=== PATIENT | female | born 1930 | race African-American/Black ===

== ENCOUNTER 2018-07-07 10:50 | Emergency (ER) | payer MEDICARE ==
--- NOTE | 2018-07-07 11:06 | UC ---
Palpitation/Dysrhythmia HP - HPI Summary HPI Summary: This is scribe, Tony Hui, documenting for attending Dr. Godfrey Cabral MD. An 88 y/o F presents to ED with c/o acute on chronic skipping heart beats. Associated sx: dizziness and lightheaded for past week, pale. Denies pedal edema , SOB, CP, fever, abd pain, nausea, BATEMAN. Pt sees Dr. Johnson, oncology, last checked her kidney function on 06/24/18. Pt ambulates with a walker, and is able to do so but less far recently. PMHx includes: L breast CA with lumpectomy, HTN , DM, GERD, Lasix. She is scheduled to see her PCP in 3 days. I, Dr. Cabral, personally performed the services described in this documentation as scribed in my presence and it is both accurate and complete. - History of Current Complaint Stated Complaint: LIGHT HEADED HEART SKIPPING BEAT Time Seen by Provider: 07/07/18 10:58 Hx Obtained From: Patient, Family/Deputy [employer] K[employer] Handler Onset/Duration: Lasting Weeks, Still Present Character: Skipped Beats Associated Signs & Symptoms: Positive: Lightheadedness, Dizzy. Negative: Chest Pain, Shortness of Breath, Nausea - Allergy/Home Medications Allergies/Adverse Reactions: Allergies Allergy/AdvReac Type Severity Reaction Status Date / Time exenatide [From Byetta] Allergy Itching Verified 07/07/18 11:46 nadolol Allergy Itching Verified 07/07/18 11:46 naproxen Allergy Swelling Verified 07/07/18 11:46 Penicillins Allergy Hives Verified 07/07/18 11:46 Flu Vaccine Allergy Itching Uncoded 07/07/18 11:46 Statins Allergy Muscle Ache Uncoded 07/07/18 11:46 PMH/Surg Hx/FS Hx/Imm Hx Previously Healthy: No - Lasix Endocrine History: Diabetes Cardiovascular History: Hypertension GI/ History: Gastroesophageal Reflux Cancer History: Breast Cancer - L - Surgical History Surgical History: Yes Surgery Procedure, Year, and Place: TONSILECTOMY A CHILD. LUMPECTOMY LEFT BREAST. Cataract removal - Family History Family History: mother [place]; father accident - Social History Occupation: Retired Lives: Alone Alcohol Use: None Substance Use Type: None Smoking Status (MU): Never Smoked Tobacco Have You Smoked in the Last Year: No - Immunization History Most Recent Influenza Vaccination: "couple years ago" Most Recent Tetanus Shot: unknown Most Recent Pneumonia Vaccination: never Review of Systems Constitutional: Other - neg: fever Skin: Other - pale1 Respiratory: Other - neg: SOB Cardiovascular: Other - pos: skipped beat; neg: CP Gastrointestinal: Other - neg: abd pain, nausea Musculoskeletal: Other: - neg: pedal edema Neurological: Other - pos: lightheaded, dizziness; neg: BATEMAN All Other Systems Reviewed And Are Negative: Yes Physical Exam - Summary Physical Exam Summary: Appearance: Well appearing, no pain distress Skin: warm, dry, reflects adequate perfusion Head/face: normal Eyes: EOMI, VANDANA ENT: normal, mucous membranes are moist Neck: supple, non-tender, no thyroidmegaly Respiratory: CTA, breath sounds present Cardiovascular: occasionally irregular rhythm, pulses symmetrical and strong, no murmur, trace LE edema Abdomen: non-tender, soft Bowel Sounds: present Musculoskeletal: normal, strength/ROM intact, trace LE edema Neuro: normal, sensory motor intact, A&Ox3 Triage Information Reviewed: Yes Vital Signs Reviewed: Yes Diagnostics - EKG EKG Comments: EKG taken at 1053. 70 BPM. NS. Base line artifact. PVCs. Non-specific ST. Nml axis. Palpitations Course/Dx - Course Course Of Treatment: BP noted and advised to follow up with PCP. Patient having ongoing palpitations for many many years. New is dizziness, lightheadedness with a history of chronic renal insufficiency and anemia. She will need blood work and further evaluation. It was suggested she be transported to the ER. She and the family agree. She was transported by ambulance to the care of Dr. Emmanuel in the ER who I spoke with. - Differential Dx/Diagnosis Differential Diagnosis/HQI/PQRI: Other - Malignant arrhythmia, A. fib, PVCs, anemia, electrolyte abnormality, worsened renal function Provider Diagnoses: 1. PVCs. 2. Lightheadedness. 3. Chronic Kidney Disease. 4. HTN - Physician Notifications Discussed Patient Care With: Oly Clinton - will see the patient in the ER Discharge - Sign-Out/Discharge Documenting (check all that apply): Patient Departure - TRANS to [facility] - Discharge Plan Condition: Stable Disposition: TRANS HIGHER LVL OF CARE FAC Referrals: Dallin Rodriguez MD [Primary Care Provider] - 1 Week Additional Instructions: Your blood pressure was elevated during todays visit; please follow up with your primary care provider within a week for further evaluation. - Billing Disposition and Condition Condition: STABLE Disposition: Trans Higher Lvl of Care Fac
[2018-07-07 11:09] VITALS: BP 173/61
== END 2018-07-07 11:39 | disposition short-term general hospital (02) ==
LOC: UCEAST 10:50
DX: I49.3 Ventricular premature depolarization (principal); R42 Dizziness and giddiness; I12.9 Hypertensive chronic kidney disease with stage 1 through stage 4 chronic kidney disease, or unspecified chronic kidney disease; E11.22 Type 2 diabetes mellitus with diabetic chronic kidney disease; N18.9 Chronic kidney disease, unspecified; Z88.6 Allergy status to analgesic agent; Z88.0 Allergy status to penicillin; Z88.7 Allergy status to serum and vaccine; Z88.8 Allergy status to other drugs, medicaments and biological substances
CPT/HCPCS: 93005; 99213; G0463

== ENCOUNTER 2018-07-07 12:03 | Emergency (ER) | payer MEDICARE ==
--- NOTE | 2018-07-07 12:55 | ED ---
HPI Cardiac - HPI Summary HPI Summary: This is scribe Scottie Gómez documenting for attending Gregory Rust MD, MD. This patient is an 88 year old F BIBA to [facility] with a chief complaint of abnormal cardiac rhythm worsening this past week. She was told that her heart has been skipping beats. Patient reports lightheadedness. Patient denies CP and SOB. She did not take her medications for HTN this morning. Her PCP is Dallin Rodriguez MD. She has a PMHx of stage IV renal disease and HTN. I, Dr. Rust, personally performed the services described in this documentation as scribed in my presence, and it is both accurate and complete. - History of Current Complaint Chief Complaint: EDDizziness Stated Complaint: DIZZINESS Time Seen by Provider: 07/07/18 12:35 Hx Obtained From: Patient Onset/Duration: Started Days Ago - Worsening this past week, Still Present Timing: Constant Aggravating Factor(s): Nothing Alleviating Factor(s): Nothing Associated Signs and Symptoms: Positive: Other: - Lightheadedness.. Negative: Chest Pain, Shortness of Breath - Allergy/Home Medications Allergies/Adverse Reactions: Allergies Allergy/AdvReac Type Severity Reaction Status Date / Time exenatide [From Byetta] Allergy Itching Verified 07/07/18 11:46 nadolol Allergy Itching Verified 07/07/18 11:46 naproxen Allergy Swelling Verified 07/07/18 11:46 Penicillins Allergy Hives Verified 07/07/18 11:46 Flu Vaccine Allergy Itching Uncoded 07/07/18 11:46 Statins Allergy Muscle Ache Uncoded 07/07/18 11:46 Home Medications: Home Medications Calcitriol CAP* [Rocaltrol CAP*] 0.25 mcg PO EVERY OTHER DAY 07/07/18 [History Confirmed 07/07/18] Chlorthalidone TAB* [Hygroton TAB*] 25 mg PO DAILY 07/07/18 [History Confirmed 07/07/18] Cholecalciferol TAB* [Vitamin D TAB*] 1,000 unit PO DAILY 07/07/18 [History Confirmed 07/07/18] DULoxetine DR CAP* [Cymbalta CAP*] 30 mg PO DAILY 07/07/18 [History Confirmed ] Doxazosin TAB* [Cardura TAB*] 2 mg PO BEDTIME 07/07/18 [History Confirmed ] Furosemide TAB* [Lasix TAB*] 20 mg PO DAILY 07/07/18 [History Confirmed 07/07/18 ] Glimepiride (NF) 4 mg PO DAILY 07/07/18 [History Confirmed 07/07/18] Metoprolol Succinate XL TAB* [Toprol XL TAB*] 100 mg PO DAILY 07/07/18 [History Confirmed 07/07/18] Ranitidine TAB (NF) [Zantac TAB (NF)] 150 mg PO BID 07/07/18 [History Confirmed 07/07/18] amLODIPine TAB* [Norvasc 5 mg TAB*] 10 mg PO DAILY 07/07/18 [History Confirmed 07/07/18] PMH/Surg Hx/FS Hx/Imm Hx Endocrine/Hematology History: Reports: Hx Diabetes, Other Endocrine/ Hematological Disorders - hyperparathyroidism Cardiovascular History: Reports: Hx Hypertension Denies: Hx Pacemaker/ICD History: Reports: Hx Renal Disease - Stage IV renal disease Musculoskeletal History: Reports: Hx Arthritis, Hx Back Problems Sensory History: Reports: Hx Contacts or Glasses Denies: Hx Hearing Aid Opthamlomology History: Reports: Hx Contacts or Glasses Psychiatric History: Denies: Hx Panic Disorder - Cancer History Cancer Type, 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 LUMPECTOMY LEFT BREAST. Cataract removal Infectious Disease History: No Infectious Disease History: Denies: Traveled Outside the [place] in Last 30 Days - Family History Known Family History: Positive: Hypertension, Other - Cancer, CVA Family History: mother CA; father accident - Social History Occupation: Retired Alcohol Use: None Substance Use Type: Reports: None Smoking Status (MU): Never Smoked Tobacco Have You Smoked in the Last Year: No Review of Systems Positive: Other - Abnormal cardiac rhythm ("skipping beats"). Negative: Chest Pain Negative: Shortness Of Breath Neurological: Other - Lightheaded All Other Systems Reviewed And Are Negative: Yes Physical Exam - Summary Physical Exam Summary: VITAL SIGNS: Reviewed. GENERAL: Patient is a well-developed and nourished, obese FEMALE who is lying comfortable in the stretcher. Patient is not in any acute respiratory distress. HEAD AND FACE: No signs of trauma. No ecchymosis, hematomas or skull depressions. No sinus tenderness. EYES: PERRLA, EOMI x 2, No injected conjunctiva, no nystagmus. EARS: Hearing grossly intact. Ear canals and tympanic membranes are within normal limits. MOUTH: Oropharynx within normal limits. NECK: Supple, trachea is midline, no adenopathy, no JVD, no carotid bruit, no c- spine tenderness, neck with full ROM. CHEST: Symmetric, no tenderness at palpation LUNGS: Clear to auscultation bilaterally. No wheezing or crackles. CVS: Regular rate and rhythm, S1 and S2 present, no murmurs or gallops appreciated. ABDOMEN: Soft, non-tender. No signs of distention. No rebound no guarding, and no masses palpated. Bowel sounds are normal. EXTREMITIES: FROM in all major joints, no edema, no cyanosis or clubbing. NEURO: Alert and oriented x 3. No acute neurological deficits. Speech is normal and follows commands. SKIN: Dry and warm Triage Information Reviewed: Yes Vital Signs On Initial Exam: Initial Vitals Pulse Resp Pulse Ox 72 17 99 07/07/18 12:12 07/07/18 12:12 07/07/18 12:12 Vital Signs Reviewed: Yes Diagnostics - Vital Signs Vital Signs Temp Pulse Resp BP Pulse Ox 07/07/18 12:18 98 F 81 15 200/86 100 07/07/18 12:13 73 17 200/86 99 07/07/18 12:12 72 17 99 - Laboratory Result Diagrams: 07/07/18 13:51 07/07/18 13:51 Lab Statement: Any lab studies that have been ordered have been reviewed, and results considered in the medical decision making process. - Radiology Chest X-Ray Radiology Interpretation Completed By: Radiologist - 13:48. NO ACTIVE CARDIOPULMONARY DISEASE. ED Physician has reviewed this report. - EKG No standard instances Cardiac Rate: NL - 72 BPM EKG Rhythm: Sinus Rhythm EKG Interpretation: Taken at 13:15. No ST elevation. Similar to EKG taken on . Re-Evaluation - Re-Evaluation 1 Re-Evaluation Time: 14:35 Comment: Informed patient that they could be discharged. Disposition - Course Assessment/Plan: This patient is a 88-year-old female who presents to the emergency department with a chief complaint of having skipped beats and dizziness. She went to see the primary care physician and she directed her to the emergency department for further workup and management. Patient denies any chest pain, shortness of breath, or nausea vomiting. Blood test results without any significant abnormality except for her chronic BUN of 35 and creatinine 2.34. Glucose is 120 6. Is 1.8 . urinalysis is negative for a UTI. Chest x-ray shows no active cardiopulmonary disease. EKG shows no ST elevations. The ED course the patient was hydrated, the patient was given medication for the hypomagnesemia and of the patient is asymptomatic. I believe that the patient would benefit from a Holter monitor. I discussed all the findings and test results with the patient. Patient was instructed to return to the emergency room immediately if any of the symptoms return or worsens. Plan of care was discussed with the patient and understands and agrees. All questions were answered at patient satisfaction. There were no further complaints or concerns. Lung exam before discharge: CTA B/L. Good air exchange. No wheezing or crackles heard. CVS: S1 and S2 present. No murmurs appreciated. Patient is alert and oriented x 3. Patient is hemodynamically stable. Patient will be discharged home with follow up PCP in the next 2-3 days - Differential Dx - Cardiopulmonary Differential Diagnoses - Cardiopulmonary: Atrial Fibrillation, Atrial Flutter, Paroxysmal SVT, Paroxysmal VT, Pericarditis - Diagnoses Provider Diagnoses: Heart palpitations Discharge - Sign-Out/Discharge Documenting (check all that apply): Patient Departure - D/C - Discharge Plan Condition: Stable Disposition: HOME Patient Education Materials: Heart Palpitations (ED) Referrals: Dallin Rodriguez MD [Primary Care Provider] - 3 Days
--- NOTE | 2018-07-07 13:52 | RAD ---
HISTORY: Dizziness COMPARISONS: October 23, 2013 VIEWS: 2: Frontal and lateral views of the chest. FINDINGS: CARDIOMEDIASTINAL SILHOUETTE: The cardiomediastinal silhouette is normal. MALA: The mala are normal. PLEURA: The costophrenic angles are sharp. No pleural abnormalities are noted. LUNG PARENCHYMA: The lungs are clear. ABDOMEN: The upper abdomen is clear. There is no subphrenic gas. BONES AND SOFT TISSUES: No bone or soft tissue abnormalities are noted. OTHER: None. IMPRESSION: NO ACTIVE CARDIOPULMONARY DISEASE.
[2018-07-07 14:00] LABS: Urine Appearance Clear; Urine Blood Negative (Negative); Urine Color Yellow; Urine Ketones Negative (Negative); Urine Protein 2+(100 mg/dL) (Negative); Urine Red Blood Cell Absent (Absent); Urine Specific Gravity 1.012 (1.010-1.030); Urine Urobilinogen Negative (Negative); Urine White Blood Cell 1+(6-10/hpf) (Absent)
[2018-07-07 14:04] LABS: ABS Basophils 0.1 10^3/ul (0-0.2); ABS Eosinophils 0.1 10^3/ul (0-0.6); ABS Lymphocytes 1.5 10^3/ul (1.0-4.8); ABS Monocytes 0.5 10^3/ul (0-0.8); ABS Neutrophils 5.5 10^3/ul (1.5-7.7); ABS Nucleated RBC 0 10^3/ul; Eosinophil % 1.5 % (0-6); Hematocrit 35 % (35-47); Hemoglobin 11.5 g/dl (12.0-16.0); Lymphocyte % 19.4 % (25-47); Mean Corpuscular HGB Conc 33 g/dl (31-36); Mean Corpuscular Hemoglobin 30 pg (27-31); Mean Corpuscular Volume 90 fL (80-97); Mean Platelet Volume 7.7 um3 (7.4-10.4); Nucleated Red Blood Cells % 0; Platelet Count 236 10^3/ul (150-450); Red Blood Count 3.82 10^6/ul (4.00-5.40); Red Cell Distribution Width 15 % (10.5-15); White Blood Count 7.6 10^3/ul (3.5-10.8)
[2018-07-07 14:20] LABS: EGFR Non-African American 19.7 (>60)
[2018-07-07] MEDS ORDERED: Magnesium Sulfate 1 GM IV* 1 GM/100 ML BAG IV ONE (14:21)
[2018-07-07] MEDS ORDERED: Magnesium Oxide TAB* 400 MG PO ONE (14:53)
[2018-07-07] MEDS ORDERED: Magnesium Oxide TAB* 400 MG ONE (14:55)
[2018-07-07 15:01] VITALS: BP 161/93
== END 2018-07-07 15:01 | disposition home or self-care (01) ==
LOC: ED 12:03
DX: R00.2 Palpitations (principal); R42 Dizziness and giddiness; E83.42 Hypomagnesemia; I12.9 Hypertensive chronic kidney disease with stage 1 through stage 4 chronic kidney disease, or unspecified chronic kidney disease; E11.22 Type 2 diabetes mellitus with diabetic chronic kidney disease; N18.4 Chronic kidney disease, stage 4 (severe); Z79.84 Long term (current) use of oral hypoglycemic drugs; Z79.899 Other long term (current) drug therapy; Z88.0 Allergy status to penicillin; Z88.7 Allergy status to serum and vaccine; Z88.8 Allergy status to other drugs, medicaments and biological substances
CPT/HCPCS: 36415; 71046; 80053; 80320; 81003; 81015; 82550; 83605; 83735; 83880; 84443; 84484; 85025; 86140; 87086; 93005; 99282; G0480; J3475

== ENCOUNTER 2019-02-28 12:36 | Inpatient (IN) | payer MEDICARE ==
[2019-02-28] MEDS ORDERED: Furosemide IV* 10 MG/ML VIAL (40 MG) IV ONE (12:38)
--- NOTE | 2019-02-28 13:02 | ED ---
Shortness of Breath - HPI Summary HPI Summary: This patient is an 89 year old F brought in by EMS from [facility] with a chief complaint of worsening SOB since the last two days. Patient reports audible wheezing, chronic extremity numbness, fatigue, and LE edema. Patient denies CP. O2 sat was 70-80 when EMS found her, at 93% in the ED. Per EMS, she was more alert when they picked her up. PMHX CHF. No PMHx asthma, COPD. SHX [facility]. RX Lasix, Metoprolol. Vitals in the room: HR 93 bpm, BP 148/81. - History of Current Complaint Hx Obtained From: Patient Onset/Duration: Lasting Days Timing: Constant Dyspnea At: Rest Associated Signs & Symptoms: Wheezing, Edema - Allergy/Home Medications Allergies/Adverse Reactions: Allergies Allergy/AdvReac Type Severity Reaction Status Date / Time exenatide [From Byetta] Allergy Itching Verified 07/07/18 11:46 Influenza Virus Vaccines Allergy Itching Verified 02/28/19 14:47 nadolol Allergy Itching Verified 07/07/18 11:46 naproxen Allergy Swelling Verified 07/07/18 11:46 Penicillins Allergy Hives Verified 07/07/18 11:46 Haxmtja-Jws-Yua Reductase Allergy Muscle Ache Verified 02/28/19 14:47 Inhibitor Home Medications: Home Medications Acetaminophen [Acetaminophen ER] 650 mg PO Q4HR PRN 02/28/19 [History Confirmed 02/28/19] Cyanocobalamin (Vitamin B-12) [B-12] 1,000 mcg PO DAILY WITH MEAL 02/28/19 [ History Confirmed 02/28/19] Hydralazine HCl 50 mg PO TID 02/28/19 [History Confirmed 02/28/19] Ipratropium/Albuterol Sulfate [Iprat-Albut 0.5-3(2.5) mg/3 ml] 3 ml INH Q4HR PRN 02/28/19 [History Confirmed 02/28/19] Lidocaine 1 patch TRANSDERM DAILY 02/28/19 [History Confirmed 02/28/19] Omeprazole 20 mg pe PO DAILY WITH MEAL 02/28/19 [History Confirmed 02/28/19] Tramadol HCl 50 mg PO DAILY WITH MEAL 02/28/19 [History Confirmed 02/28/19] PMH/Surg Hx/FS Hx/Imm Hx Endocrine/Hematology History: Reports: Hx Diabetes, Other Endocrine/ Hematological Disorders - hyperparathyroidism Cardiovascular History: Reports: Hx Congestive Heart Failure, Hx Hypertension Denies: Hx Pacemaker/ICD History: Reports: Hx Renal Disease - Stage IV renal disease, Other Problems/Disorders - Stage IV renal disease Musculoskeletal History: Reports: Hx Arthritis, Hx Back Problems Sensory History: Reports: Hx Contacts or Glasses Denies: Hx Hearing Aid Opthamlomology History: Reports: Hx Contacts or Glasses Psychiatric History: Denies: Hx Panic Disorder - Cancer History Cancer Type, 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 LUMPECTOMY LEFT BREAST. Cataract removal Infectious Disease History: Denies: Traveled Outside the [place] in Last 30 Days - Family History Known Family History: Positive: Hypertension, Other - Cancer, CVA Family History: mother [place]; father accident - Social History [facility]: [facility] Alcohol Use: None Substance Use Type: Reports: None Smoking Status (MU): Never Smoked Tobacco Have You Smoked in the Last Year: No Review of Systems Positive: Fatigue Negative: Chest Pain Positive: Shortness Of Breath, Other - wheezing Positive: Myalgia - legs, Edema - LE All Other Systems Reviewed And Are Negative: Yes Physical Exam - Summary Physical Exam Summary: VITAL SIGNS: Reviewed. GENERAL: Patient is an elderly female who is lying comfortable in the stretcher. Patient is in acute distress secondary to SOB. She is unable to speak in full sentences but speaks in partial sentences. HEAD AND FACE: No signs of trauma. No ecchymosis, hematomas or skull depressions. No sinus tenderness. EYES: PERRLA, EOMI x 2, No injected conjunctiva, no nystagmus. EARS: Hearing grossly intact. Ear canals and tympanic membranes are within normal limits. MOUTH: Oropharynx within normal limits. NECK: Supple, trachea is midline, no adenopathy, no carotid bruit, no c-spine tenderness, neck with full ROM. JVD present. CHEST: Symmetric, no tenderness at palpation LUNGS: Clear to auscultation bilaterally. Positive crackles in both lungs. Decreased breath sounds bilaterally. CVS: Regular rate and rhythm, S1 and S2 present, no murmurs or gallops appreciated. ABDOMEN: Soft, non-tender. No signs of distention. No rebound no guarding, and no masses palpated. Bowel sounds are normal. EXTREMITIES: FROM in all major joints, no cyanosis or clubbing. Bilateral LE edema. NEURO: Alert and oriented x 3. No acute neurological deficits. Speech is normal and follows commands. SKIN: Dry and warm Triage Information Reviewed: Yes Vital Signs Reviewed: Yes Diagnostics - Laboratory Result Diagrams: 02/28/19 13:16 02/28/19 13:16 Lab Statement: Any lab studies that have been ordered have been reviewed, and results considered in the medical decision making process. - Radiology CXR Radiology Interpretation Completed By: Radiologist Summary of Radiographic Findings: Chest x-ray findings are most consistent with cardiogenic pulmonary edema. with likely pleural effusion versus pneumonia at the left lung base. ED physician has reviewed this report - EKG 12:47 Cardiac Rate: NL - 92 bpm EKG Rhythm: Sinus Rhythm ST Segment: Normal EKG Comparison: No Significant Change - 07/06/18 Summary of EKG Findings: normal axis Course/Dx - Course Assessment/Plan: This patient is a 89-year-old female who presents to the emergency department from the [facility]. Patient presented to the ED via EMS with a chief complaint of shortness of breath. Image reports that the patient was wheezing therefore she was placed in DuoNeb s. Initially upon examination the patient is having occasional wheezes but she has decreased breath sounds and crackles in both bases of the lungs. I stopped the DuoNeb. The patient was placed in a fishing hand. Since that the patient was feeling bloated therefore the patient was given Lasix. Chest x-ray impression: Findings most consistent with cardiogenic pulmonary edema. Likely pleural effusions versus pneumonia of the left lung base. At this point the patient also be replaced in Levaquin since the patient is allergic to penicillin to cover for pneumonia. The patient reported that she is a DNR/DNI she doesnt want any type of intervention, she also declines any Central line accesses, and she was only a trial of antibiotics. Blood work without any significant abnormality except for slight chronic anemia, acute and chronic renal failure with a BUN of 74 and creatinine of 3.57. Glucose is 185, troponin 0.05, CRP 21.44, BNP is more than 1300. Hearing is contaminated. Influenza A and B is negative. In the ED course the patient was given Lasix since the patient has a pulmonary edema/CHF exacerbation. The patient also was placed in the Vapotherm and she feeling a little bit better. I discussed my physical exam, findings and test results with Dr. Aguero from the hospitalist services and he agreed to admit patient to his services. Patient is hemodynamically stable alert and oriented x 3. - Diagnoses Provider Diagnoses: Elevated troponin, Pulmonary edema, Pleural effusion, PNA (pneumonia), Acute on chronic renal failure - Physician Notifications Discussed Care of Patient With: Aaron Aguero Time Discussed With Above Provider: 14:18 Instructed by Provider To: Admit As Inpatient - Critical Care Time Critical Care Time: 75-104 min Discharge - Sign-Out/Discharge Documenting (check all that apply): Patient Departure - admission Patient Received Moderate/Deep Sedation with Procedure: No - Discharge Plan Condition: Fair Disposition: ADMITTED TO [facility] - Billing Disposition and Condition Condition: FAIR Disposition: Admitted to [facility] - Attestation Statements Document Initiated by Meghanibe: Yes Documenting Scribe: Ruslan Goldberg Provider For Whom Andrews is Documenting (Include Credential): Gregory Rust MD Scribe Attestation: IRuslan, scribed for Gregory Rust MD on 02/28/19 at 1827. Scribe Documentation Reviewed: Yes Provider Attestation: The documentation as recorded by the Ruslan portillo accurately reflects the service I personally performed and the decisions made by me, Gregory Rust MD Status of Scribe Document: Viewed
[2019-02-28 13:25] LABS: ABS Basophils 0.1 10^3/ul (0-0.2); ABS Eosinophils 0 10^3/ul (0-0.6); ABS Lymphocytes 0.7 10^3/ul (1.0-4.8); ABS Monocytes 0.5 10^3/ul (0-0.8); ABS Neutrophils 6.6 10^3/ul (1.5-7.7); ABS Nucleated RBC 0 10^3/ul; Eosinophil % 0.6 %; Hematocrit 23 % (33-41); Hemoglobin 7.7 g/dL (12.0-16.0); Lymphocyte % 9.2 %; Mean Corpuscular HGB Conc 33 g/dL (31-36); Mean Corpuscular Hemoglobin 31 pg (27-31); Mean Corpuscular Volume 91 fL (80-97); Mean Platelet Volume 8.6 fL (7.4-10.4); Nucleated Red Blood Cells % 0; Platelet Count 218 10^3/uL (150-450); Red Cell Distribution Width 15 % (10.5-15); White Blood Count 7.9 10^3/uL (3.5-10.8)
[2019-02-28] MEDS ORDERED: Levofloxacin 750 MG IVPREMIX(* 750 MG/150 ML BAG IVPB ONE (13:25)
[2019-02-28 13:39] LABS: Urine Appearance Turbid; Urine Bacteria 3+ (Absent); Urine Bilirubin Negative (Negative); Urine Blood Negative (Negative); Urine Color Yellow; Urine Glucose Negative (Negative); Urine Ketones Negative (Negative); Urine Nitrite Negative (Negative); Urine Protein Negative (Negative); Urine Red Blood Cell Trace(0-2/hpf) (Absent); Urine Specific Gravity 1.012 (1.010-1.030); Urine Squamous Epithelial Cell Present (Absent); Urine Urobilinogen Negative (Negative); Urine White Blood Cell 2+(11-20/hpf) (Absent)
[2019-02-28 13:42] LABS: ALT 8 U/L (7-52); AST 9 U/L (13-39); Albumin 3.6 g/dL (3.2-5.2); Albumin/Globulin Ratio 1.2 (1-3); Alkaline Phosphatase 76 U/L (34-104); Anion Gap 10 mmol/L (2-11); BUN/Creatinine Ratio 20.7 (8-20); Blood Urea Nitrogen 74 mg/dL (6-24); C Reactive Protein 21.44 mg/L (<8.01); CO2 Carbon Dioxide 22 mmol/L (22-32); Chloride 106 mmol/L (101-111); Creatine Kinase 82 U/L (10-223); EGFR African American 14.6 (>60); EGFR Non-African American 12.1 (>60); Globulin 2.9 g/dL (2-4); Glucose 185 mg/dL (70-100); Potassium 4.3 mmol/L (3.5-5.0); Sodium 138 mmol/L (135-145); Total Protein 6.5 g/dL (6.4-8.9)
[2019-02-28 13:46] LABS: Troponin I 0.05 ng/mL (<0.04)
[2019-02-28 13:47] LABS: CKMB ng/mL 1.2 ng/mL (0.6-6.3)
[2019-02-28] MEDS ORDERED: Dextrose 50% Syringe 50 ML* 25 GM/50 ML SYRINGE IV PUSH PRN (14:32)
[2019-02-28 15:15] LABS: Influenza A Molecular NEGATIVE (Negative); Influenza B Molecular NEGATIVE (Negative)
[2019-02-28 16:25] LABS: Troponin I 0.06 ng/mL (<0.04)
--- NOTE | 2019-02-28 17:55 | HP ---
Amended report to enter cosigning physician. HISTORY AND PHYSICAL: DATE OF ADMISSION: 02/28/19 PROVIDER: Shashi Steiner NP ATTENDING PHYSICIAN: Dr. Aaron Aguero* (report dictated by Shashi Steiner NP). PRIMARY CARE PROVIDER: Dr. Guadarrama at [facility]. CHIEF COMPLAINT: The patient was sent by nursing staff at [facility] for shortness of breath, wheezing, hypoxia. HISTORY OF PRESENT ILLNESS: Ms. Waterman is an 89-year-old female with a past medical history of chronic kidney disease stage 4, diabetes, GERD, depression/ anxiety, anemia, hypertension, pulmonary hypertension and lower extremity edema , who presents to the emergency department today sent by [facility] for shortness of breath, wheezing and found to be hypoxic. At the patient's baseline, she receives Lasix 20 mg b.i.d., yesterday when she had increased shortness of breath, she was given an extra dose of 20 mg of Lasix p.o. She underwent a chest x-ray which was unremarkable. Per the patient, yesterday afternoon, she started not feel well with shortness of breath, wheezing and today continued to not feel well and asked that she be sent to the emergency department. Per EMS report, she possibly had an O2 sat between 70% and 80%. On her arrival to the emergency department, her O2 sat was 88%, she was started on Vapotherm, FiO2 of 50% and the flow rate of 35 L. She was given 40 mg of IV Lasix and a dose of Levaquin. Her chest x-ray showing "findings are most consistent with cardiogenic pulmonary edema with likely pleural effusion versus pneumonia at the left lung base. In the emergency department on assessment the patient is found to be alert and oriented x3, lying in the emergency room stretcher, in no acute distress. She is found to have little reserve when she sits forward quickly desatting to 86-88 %. She reports that she feels better than when she came in and currently denies shortness of breath, wheezing or chest pain. She denies any recent fevers, chills, headaches, rhinorrhea, or nasal congestion. No sore throat. Reports some mild nausea. Denies any urinary symptoms such as dysuria, hematuria , increased frequency or urgency. She denies cough or sputum production. She denies any lower extremity edema, but states she has had this in the past which now currently is controlled by her twice a day dose of Lasix. The patient will be admitted to the hospitalist service for acute hypoxic respiratory failure suspect secondary to pneumonia, possible CHF component. PAST MEDICAL HISTORY: 1. Anxiety/depression. 2. Chronic kidney disease stage 4. 3. Type 2 diabetes. 4. GERD. 5. Anemia. 6. Hypertension. 7. Pulmonary hypertension. 8. Hyperparathyroidism. 9. Fibromyalgia. 10. History of chronic lower extremity edema. 11. History of constipation. 12. B12 deficiency. 13. Vitamin D deficiency. 14. History of breast cancer. 15. Lumbar spine degeneration joint disease. 16. History of TIA/CVA. HOME MEDICATIONS: 1. DuoNeb q.4 hours p.r.n. shortness of breath and wheezing, appears this was started this morning on 02/28/19. 2. Tramadol 50 mg p.o. daily for pain. 3. Tramadol 50 mg p.o. q.12 hours p.r.n. pain. 4. Aspercreme lidocaine patch 4% apply to bilateral knees topically in the morning for pain. 5. Omeprazole 20 mg p.o. daily. 6. Glimepiride 1 mg p.o. daily. 7. Hydralazine 50 mg p.o. t.i.d. 8. Ranitidine 150 mg p.o. q.p.m. 9. Senna/docusate sodium 8.6/50 mg 1 tab q.12 hours p.r.n. constipation. 10. MiraLAX 17 g p.o. q.24 hours p.r.n. 11. Loperamide HCl 2 mg 1 capsule p.r.n. loose stool, max daily dose 16 mg. 12. Calcitriol capsule 0.25 mcg 1 cap on Mondays and . 13. Lasix 20 mg p.o. b.i.d. 14. Vitamin D3 2000 units p.o. daily. 15. Amlodipine 10 mg p.o. daily. 16. Cyanocobalamin 1000 mg p.o. daily. 17. Metoprolol succinate ER 50 mg p.o. daily. 18. Tradjenta 5 mg p.o. daily. 19. Doxazosin 2 mg p.o. q.p.m. 20. Acetaminophen 650 mg p.o. q.4 hours p.r.n. ALLERGIES: BYETTA, INFLUENZA VIRUS VACCINE, NADOLOL, NAPROXEN, PENICILLIN and STATINS. FAMILY HISTORY: Reviewed and noncontributory. SOCIAL HISTORY: Denies history of tobacco abuse. No alcohol or recreational drug use. She current lives at a long-term resident at [facility]. She is . She is a DNR/DNI. Her healthcare proxy is her daughter, Kaitlynn Grijalva , phone number [phone]. REVIEW OF SYSTEMS: A 14-point review of systems was performed. All the pertinent positives and negatives are mentioned in the history of present illness. Otherwise are negative. PHYSICAL EXAMINATION GENERAL APPEARANCE: An elderly female, lying in the emergency department stretcher. Alert and oriented x3. Answering questions appropriately, appears to be a good historian, in no acute distress. VITAL SIGNS: Temperature 98.8, heart rate 84, respirations 31, O2 sat 90% on Vapotherm of 35 L 50%, blood pressure 150/85. HEENT: Head is normocephalic, atraumatic. Pupils are equal and reactive to light. Oropharynx clear. Moist mucous membranes. NECK: Supple. No JVD noted. LUNGS: Crackles to bilateral bases. Otherwise, a good aeration throughout. Respirations are symmetric and easy. With movement, she does appear to become little bit more short of breath. CARDIAC: S1, S2. Regular rate and rhythm. No murmur, rub, or gallop appreciated. ABDOMEN: Obese, soft, nontender. Normal bowel sounds throughout. EXTREMITIES: No clubbing, cyanosis, or edema noted. Sensation to lower extremities is intact to light touch. NEUROLOGIC: Alert and oriented x3. Cranial nerve II through XII are grossly intact. No focal deficits noted. DIAGNOSTIC STUDIES/LAB DATA: Sodium 133, potassium 4.3, chloride 106, carbon dioxide 22, anion gap 10, BUN 74, creatinine 3.57, glucose 185, lactic acid 1.1 , calcium 10.0. Total bilirubin 0.40, AST 9, ALT 8, alkaline phosphatase 76. Total creatine kinase 82. CK-MB 1.2. Troponin 0.05. CRP 21.44. BNP greater than 13,000. Total protein 6.5, albumin 3.6. APTT 25.7. WBCs 7.9, RBC 2.50, HGB 7.7, HCT 23, MCV 91, MCH 31, MCHC 33, RDW 15, platelet count 215. Urinalysis, 3+ leukocyte esterase, wbc's 2+, rbc trace, squamous cells present, 3+ bacteria, hyaline cast present. Chest x-ray, impression: "Chest x-ray findings are most consistent with cardiogenic pulmonary edema with likely pleural effusion versus pneumonia at the left lung base." ASSESSMENT AND PLAN: Ms. Waterman is an 89-year-old female with a past medical history of type 2 diabetes, chronic kidney disease stage 4, hypertension, hyperparathyroidism, who presents to the emergency department today from [facility] with complaint of shortness of breath, wheezing, found to be hypoxic. 1. Acute hypoxic respiratory failure. The patient appears to have a possible left base pneumonia and possible congestive heart failure exacerbation. She does not appear to be greatly fluid overloaded with no noted lower extremity edema; however, she does have crackles to her bases bilaterally. She did receive 40 mg of Lasix in the emergency department. Garcia catheter was placed for close I's and O's. The patient presented with some expiratory wheezing, which did improve with a nebulizer treatment. She was started on Levaquin in the emergency department. The patient currently remains on Vapotherm 35 L at 50 %. We will maintain this for now as she is very little reserve with movement, she does dip down into the 80s. Overall, she is feeling better. Plan will be to continue treating for healthcare-acquired pneumonia with antibiotics, nebulizing treatments. We will await blood cultures. We will send urine for S. pneumoniae and legionella antigens. She was given 40 mg of Lasix in the emergency department. At this point, hold on on further diuresing and she should be reevaluated in the morning. We will continue to closely follow. Currently, she is moving good air with minor crackles in the bases. We will hold off on steroids at this time as I do not note any wheezing. She did have an ABG in the emergency department, which showed a pH of 7.35, pCO2 of 34, pO2 of 75, HCO3 of 21. It was noted that she is slightly hypoxic; therefore, we will continue Vapotherm at this time and titrate as tolerates, for this she will need to be admitted to the ICU. Will test for influenza. 2. Elevated troponin 0.05. We will continue to trend troponins. She has no chest pain or EKG changes. 3. Chronic kidney disease stage 4. She appears to be slightly above her baseline, could be possibly secondary to congestive heart failure versus dehydration. Again, we will plan to hold off on giving further diuretics at this time and we will not give fluid and repeat labs in the morning. 4. Anemia. Her H and H is 7.7 and 23, this appears to be her baseline. Repeat in the morning. We will add on iron studies. 5. Type 2 diabetes. Hold home medications, fingerstick blood glucose a.c. and h.s. with a lispro sliding scale. 6. Hypertension. Continue home amlodipine, hydralazine and metoprolol. 7. Gastroesophageal reflux disease. Continue PPI. 8. Vitamin D and vitamin B deficiencies. Continue supplementation. 9. DVT prophylaxis. Heparin subcu. 10. Code status: DNR/DNI. The patient's daughter, Kaitlynn Grijalva is her healthcare proxy, [phone]. 11. Hospital status: Inpatient. TIME SPENT: Approximately 60 minutes was spent on this admission. SHASHI STEINER NP [id number]/[facility] #: [id number] [place]
[2019-02-28] MEDS: Insulin LISPRO* 1 UNITS UNIT SUBCUT SCH ×2 (18:10→21:57)
[2019-02-28] MEDS ORDERED: Dextrose 50% VIAL 50 ml IV PUSH PRN (19:48)
[2019-02-28] MEDS: Albuterol/Ipratropium NEB.SOL* Albuterol 2.5 MG/Ipratropium 0.5 MG 3 ML INH PRN (20:07)
[2019-02-28 20:51] LABS: Troponin I 0.08 ng/mL (<0.04)
[2019-02-28] MEDS ORDERED: Furosemide IV* 10 MG/ML 2 ML VIAL (20 MG) IV ONE (21:23)
[2019-02-28] MEDS: Doxazosin TAB* 2 MG PO SCH (21:57)
[2019-03-01 06:25] LABS: ABS Basophils 0 10^3/ul (0-0.2); ABS Eosinophils 0.1 10^3/ul (0-0.6); ABS Lymphocytes 0.8 10^3/ul (1.0-4.8); ABS Monocytes 0.7 10^3/ul (0-0.8); ABS Neutrophils 6.4 10^3/ul (1.5-7.7); ABS Nucleated RBC 0 10^3/ul; Eosinophil % 1.1 %; Hematocrit 22 % (33-41); Hemoglobin 7.2 g/dL (12.0-16.0); Lymphocyte % 10.1 %; Mean Corpuscular HGB Conc 34 g/dL (31-36); Mean Corpuscular Hemoglobin 31 pg (27-31); Mean Corpuscular Volume 91 fL (80-97); Mean Platelet Volume 8.4 fL (7.4-10.4); Nucleated Red Blood Cells % 0; Platelet Count 198 10^3/uL (150-450); Red Blood Count 2.37 10^6 /uL (3.70-4.87); Red Cell Distribution Width 15 % (10.5-15); White Blood Count 8.1 10^3/uL (3.5-10.8)
[2019-03-01] MEDS: Albuterol/Ipratropium NEB.SOL* Albuterol 2.5 MG/Ipratropium 0.5 MG 3 ML INH PRN (06:35)
[2019-03-01 06:41] LABS: BUN/Creatinine Ratio 20.4 (8-20); Calcium 9.9 mg/dL (8.6-10.3); EGFR African American 14.2 (>60); EGFR Non-African American 11.7 (>60); Potassium 4.2 mmol/L (3.5-5.0)
[2019-03-01] MEDS ORDERED: Furosemide IV* 10 MG/ML VIAL (40 MG) IV ONE (06:47)
[2019-03-01] MEDS: cefTRIAXone VIAL(*) 500 MG in NS 0.9% 50 ML* 50 ML IVPB SCH (07:24)
[2019-03-01] MEDS: Insulin LISPRO* 1 UNITS UNIT SUBCUT SCH ×4 (07:25→21:37)
[2019-03-01] MEDS: Cholecalciferol TAB* 1000 UNITS PO SCH (07:27)
[2019-03-01] MEDS: Azithromycin IV(*) 500 MG in NS 0.9% 250 ML* 250 ML IVPB SCH (08:39)
[2019-03-01] MEDS: Pantoprazole TAB * 40 MG TAB PO SCH (08:40)
[2019-03-01] MEDS: Metoprolol Succinate XL TAB* 100 MG PO SCH (08:40)
[2019-03-01] MEDS: traMADol TAB* 50 MG PO SCH (08:51)
[2019-03-01] MEDS ORDERED: Metoprolol Succinate XL TAB* 100 MG PO SCH (09:00)
[2019-03-01] MEDS ORDERED: Albuterol 2.5 MG/3 ML NEB.SOL* (0.083%) INH PRN (09:24)
[2019-03-01] MEDS ORDERED: Furosemide IV* 100 MG in NS 0.9% 100 ML* 90 ML IV SCH ×4 (10:00)
[2019-03-01] MEDS: Furosemide IV* 100 MG in NS 0.9% 100 ML* 90 ML IV SCH ×2 (10:35→23:13)
[2019-03-01] MEDS ORDERED: Furosemide IV* 10 MG/ML 2 ML VIAL (20 MG) IV SCH (11:00)
[2019-03-01] MEDS: Albuterol/Ipratropium NEB.SOL* Albuterol 2.5 MG/Ipratropium 0.5 MG 3 ML INH SCH ×3 (11:28→14:38)
[2019-03-01] MEDS: Metolazone TAB* 5 MG PO SCH (11:29)
[2019-03-01] MEDS ORDERED: Perflutren Lipid Microsphere* 3 ML VIAL ONE (13:14)
--- NOTE | 2019-03-01 13:40 | PN ---
Subjective Date of Service: 03/01/19 Interval History: Pt seen and examined. Meds and labs reviewed. CC: SOB, improving slowly ROS: Denied BATEMAN/dizziness, F/C, N/V, CP, increased cough, sputum production, abd pain, diarrhea, constipation, dysuria, myalgias, arthralgias, throat pain, and new skin lesions. The rest of the 14 point ROS are unremarkable. PHYSICAL EXAM: GEN APPEARANCE: Awake, not in acute distress HEENT: NC/AT, PERRLA, moist oral mucosa, (-) throat erythema NECK: Soft, supple, (-) cervical LAD, (-)JVD (-)HJR HEART: S1S2 WNL, RRR, No MRG CHEST: (+)Bibasal crackles, GAE, No W/R/R ABD: Soft, ND/NT, NABS 4x Q EXT: No C/C/Compression stockings make it hard to further eval edema SKIN: Warm to touch PSYCH: No active psychosis, hallucinations, depression, SI/HI Objective Active Medications: Acetaminophen (Tylenol Tab*) 650 mg PO Q6H PRN PRN Reason: FEVER/PAIN Albuterol (Ventolin 2.5 Mg/3 Ml Neb.Petra*) 2.5 mg INH Q2H PRN PRN Reason: SOB/WHEEZING Albuterol/Ipratropium (Duoneb (Albuterol 2.5 Mg/Ipratropium 0.5 Mg)) 1 neb INH [id number] AWAKE DYLAN Last Admin: 03/01/19 11:29 Dose: 1 neb Cholecalciferol (Vitamin D Tab*) 1,000 units PO DAILY DYLAN Last Admin: 03/01/19 07:27 Dose: 1,000 units Dextrose (D50w Syringe 50 Ml*) 12.5 gm IV PUSH .FOR FS < 60 - SS PRN PRN Reason: FS < 60 Doxazosin Mesylate (Cardura Tab*) 2 mg PO BEDTIME DYLAN Last Admin: 02/28/19 21:57 Dose: 2 mg Furosemide (Lasix Iv*) 20 mg IV ONCE [facility]YLAN Stop: 03/01/19 23:59 Heparin Sodium (Porcine) (Heparin Vial(*)) 5,000 units SUBCUT Q12HR [facility]AN Ceftriaxone Sodium 500 mg/ (Sodium Chloride) 50 mls @ 200 mls/hr IVPB Q24H [facility] Last Admin: 03/01/19 07:24 Dose: 200 mls/hr Azithromycin 500 mg/ Sodium (Chloride) 250 mls @ 250 mls/hr IVPB Q24H [facility] Last Admin: 03/01/19 08:39 Dose: 250 mls/hr Furosemide 100 mg/ Sodium (Chloride) 100 mls @ 5 mls/hr IV Q20H [facility]; Protocol Last Admin: 03/01/19 10:35 Dose: 5 mls/hr Insulin Human Lispro (Humalog*) 0 units SUBCUT ACHS [facility]; Protocol Last Admin: 03/01/19 12:57 Dose: Not Given Metolazone (Zaroxolyn Tab*) 5 mg PO DAILY@0830 [facility] Stop: 03/04/19 10:51 Last Admin: 03/01/19 11:29 Dose: 5 mg Metoprolol Succinate (Toprol Xl Tab*) 100 mg PO DAILY [facility] Last Admin: 03/01/19 08:40 Dose: 100 mg Morphine Sulfate (Morphine 4 Mg/Ml Vial (1 Ml)) 0.5 mg IV Q6H PRN PRN Reason: SOB/Air hunger Pantoprazole Sodium (Protonix Tab*) 40 mg PO DAILY WITH MEAL [facility] Last Admin: 03/01/19 08:40 Dose: 40 mg Tramadol HCl (Ultram*) 50 mg PO DAILY WITH MEAL [facility] Last Admin: 03/01/19 08:51 Dose: 50 mg Vital Signs - 8 hr 03/01/19 03/01/19 03/01/19 06:00 06:04 06:34 Temperature Pulse Rate 86 85 82 Respiratory 29 26 23 Rate Blood Pressure 152/76 145/63 (mmHg) O2 Sat by Pulse 93 93 96 Oximetry 03/01/19 03/01/19 03/01/19 06:36 07:00 07:04 Temperature Pulse Rate 83 80 80 Respiratory 24 25 32 Rate Blood Pressure 144/80 (mmHg) O2 Sat by Pulse 96 95 96 Oximetry 03/01/19 03/01/19 03/01/19 07:34 08:00 08:04 Temperature Pulse Rate 87 78 86 Respiratory 27 24 23 Rate Blood Pressure 143/82 133/81 (mmHg) O2 Sat by Pulse 93 96 97 Oximetry 03/01/19 03/01/19 03/01/19 08:34 09:00 09:04 Temperature Pulse Rate 83 82 82 Respiratory 22 22 28 Rate Blood Pressure 146/70 135/68 (mmHg) O2 Sat by Pulse 100 97 96 Oximetry 03/01/19 03/01/19 03/01/19 09:34 10:00 10:15 Temperature 97.9 F Pulse Rate 80 77 78 Respiratory 21 25 26 Rate Blood Pressure 128/60 138/68 (mmHg) O2 Sat by Pulse 94 94 96 Oximetry 03/01/19 03/01/19 03/01/19 10:16 10:17 10:30 Temperature 97.9 F Pulse Rate 79 79 78 Respiratory 24 23 21 Rate Blood Pressure 137/61 137/61 150/52 (mmHg) O2 Sat by Pulse 91 91 92 Oximetry 03/01/19 03/01/19 03/01/19 10:40 11:00 11:41 Temperature 99.1 F Pulse Rate 76 Respiratory 23 21 21 Rate Blood Pressure 146/55 (mmHg) O2 Sat by Pulse 95 Oximetry 03/01/19 03/01/19 11:53 12:00 Temperature Pulse Rate 78 77 Respiratory 22 22 Rate Blood Pressure 142/73 131/91 (mmHg) O2 Sat by Pulse 95 95 Oximetry Oxygen Devices in Use Now: High Flow Heated Nasal Cannula Result Diagrams: 03/01/19 06:04 03/01/19 06:04 Microbiology and Other Data: Microbiology 02/28/19 13:18 Blood Culture - Preliminary Blood Venous No Growth Day 1 03/01/19 10:42 Nasal Screen MRSA (PCR) - Final Nasal Mrsa Not Detected 02/28/19 13:15 Urine Culture - Preliminary Urine Escherichia Coli 02/28/19 13:15 Legionella Urinary Antigen - Final Urine Negative Legionella Antigen 02/28/19 13:15 Streptococcus pneumoniae Ag Screen - Final Urine Negative S. pneumo Antigen Assess/Plan/Problems-Billing Assessment: - Patient Problems (1) Acute and chronic respiratory failure with hypoxia Current Visit: Yes Status: Acute Code(s): J96.21 - ACUTE AND CHRONIC RESPIRATORY FAILURE WITH HYPOXIA SNOMED Code(s): 60018751 Comment: -Likely due to CHF -Clinically, the pt does not seem to present with cough, fevers, and sputum production; this together with CXR that appears more congested appears to place PNA at lower differential -Will continue Abx for now -For CT w/o cont of Chest to better eval pulmonary parenchyma and if no convincing evidence of consolidation, will D/C Abx; for now, continue to follow cultures -Agree w/bolus of [address] Reyes, however, pt still severely congested likely predominantly left sided given lack of JVD nor increased edema of BLLE per pts daughter, although pt wearing compression stockings on exam -Will transfuse w/1 unit PRBC, appropriately typed and screened -Will nebulize as ordered -Re-bolus w/20 mg of IV Lasix post-transfusion and begin Lasix gtt and Metolazone while transfusion on-going (discussed w/TUYET Panda). -Follow BNP in AM (2) Elevated troponin Current Visit: Yes Status: Acute Code(s): R74.8 - ABNORMAL LEVELS OF OTHER SERUM ENZYMES SNOMED Code(s): 644908509 Comment: -Likely due to acute on chronic renal insufficiency w/demand ischemia given above -Will await result of 2D echo ordered -Continue supportive care and watchful waiting (3) Acute on chronic renal insufficiency Current Visit: Yes Status: Acute Code(s): N28.9 - DISORDER OF KIDNEY AND URETER, UNSPECIFIED; N18.9 - CHRONIC KIDNEY DISEASE, UNSPECIFIED SNOMED Code(s ): 329781110 Comment: -Likely pre-renal given above -Will check for urine lytes to calculate for FE-Urea -Continue supportive care described above (4) UTI (urinary tract infection) Current Visit: Yes Status: Acute Comment: -Received Levaquin on admx -Currently on 1st day of Rocephin and 3rd abx day tomorrow -Consider D/C of abx in AM if continues to be stable (5) Diabetes 1.5, managed as type 2 Current Visit: Yes Status: Acute Code(s): E13.9 - OTHER SPECIFIED DIABETES MELLITUS WITHOUT COMPLICATIONS SNOMED Code(s): 493501509 Comment: -Well-controlled -Continue ISS (6) DVT prophylaxis Current Visit: Yes Status: Acute Code(s): BEP5882 - SNOMED Code(s): 159748234 Comment: -Heparin SQq12H added to regimen as planned Status and Disposition: -As above
--- NOTE | 2019-03-01 14:08 | ECHO ---
Patient: ENID TORRES [facility] Rec#: [id number] : 1930 Date: 03/01/2019 Age: 89y Height: 163 cm / 64.2 in Weight: 94 kg / 207.2 lbs Sex: F BSA: 1.99 Room#: ICU 2 Admit Date#: 02/28/2019 Type: Inpatient Referring: Whitney Duque Reading: Helen Quinones MD [employer] Supervisor: Ashley Lennon RD,RDMS Transthoracic Echocardiogram Indication: CHF, Respiratory failure BP: 147/75 HR: 78 Rhythm: NSR Findings History: CKD, DM, HTN, PHTN, edema, TIA/CVA, breast cancer Technical Comments: The study quality is fair. Left Ventricle: The left ventricular chamber size is normal. Mild concentric left ventricular hypertrophy is observed. There is global hypokinesis of the left ventricle with minor regional variation. The estimated ejection fraction is 30-35%. The assessment of diastolic function is non-diagnostic. Left Atrium: The left atrium is moderate to severely dilated. Right Ventricle: The right ventricle is slightly dilated. The right ventricular global systolic function is normal. Right Atrium: The right atrial cavity size is normal. Aortic Valve: The aortic valve is trileaflet. The aortic valve leaflets are mildly thickened. Systolic excursion of the aortic valve is normal. There is no evidence of aortic regurgitation. There is no evidence of aortic stenosis. Mitral Valve: The mitral valve leaflets are mildly thickened. There is moderate mitral regurgitation. There is no evidence of mitral stenosis. Tricuspid Valve: The tricuspid valve leaflets are normal. There is mild tricuspid regurgitation. There is evidence of moderate to severe pulmonary hypertension. Pulmonic Valve: The pulmonic valve structure is not well visualized. There is no evidence of pulmonic regurgitation. Pericardium: There is no significant pericardial effusion. Aorta: The aortic root appears normal. The aortic arch is not well visualized. Pulmonary Artery: The main pulmonary artery is not well visualized. Venous: The inferior vena cava appears normal in size. There is less than 50% respiratory change in the inferior vena cava dimension. Contrast: Definity was used to optimize study. A total of 2 ml was given by patient's RN ([facility]). Summary: There was not any prior study for comparison. Conclusions The left ventricular chamber size is normal. Mild concentric left ventricular hypertrophy is observed. There is global hypokinesis of the left ventricle with minor regional variation. The estimated ejection fraction is 30-35%.Mid to distal septum appears hypo in PLAX, A4Cand ALAX, anteroseptal, anterior and anterolateral apex appears hypo The assessment of diastolic function is non-diagnostic. The left atrium is moderate to severely dilated. There is moderate mitral regurgitation. There is mild tricuspid regurgitation. Measurements Name Value Normal Range RVIDd (AP) 2D 2.7 cm (0.9 - 2.6) RVDdMajor (2D) 3.4 cm (2.2 - 4.4) RAd ISD 4CH 4.9 cm (3.4 - 4.9) RA (A4C)W 3.5 cm (2.9 - 4.6) IVSd (2D) 1.3 cm (0.6 - 1) LVPWd (2D) 1.1 cm (0.6 - 1) LVIDd (2D) 4.9 cm (3.6 - 5.4) LVIDs (2D) 3.3 cm - LV FS (2D) 32 % (25 - 45) Aortic Annulus 2 cm (1.4 - 2.6) Ao root diameter (2D) 2.4 cm (2.1 - 3.5) Ascending Ao 2.2 cm (2.1 - 3.4) LA dimension (AP) 2D 4.5 cm (2.3 - 3.8) LAd ISD 4CH 5.8 cm (2.9 - 5.3) LA ISD 4CH W 5.8 cm (2.5 - 4.5) Name Value Normal Range LA ESV BP (A/L) index 50 ml/m2 - Name Value Normal Range MV E-wave Vmax 1.4 m/sec - MV deceleration time 140 msec - MV A-wave Vmax 1 m/sec - MV E:A ratio 1.4 ratio - Name Value Normal Range AV Vmax 1.5 m/sec - AV VTI 33 cm - AV peak gradient 9 mmHg - AV mean gradient 4 mmHg - LVOT Vmax 1.1 m/sec - LVOT VTI 21 cm - LVOT peak gradient 5 mmHg - LVOT mean gradient 2 mmHg - Name Value Normal Range MV Vmax 1.5 m/sec - MV VTI 37 cm - MV peak gradient 9 mmHg - MV mean gradient 3 mmHg - MV PHT 92 msec - MR Vmax 5 m/sec - MR VTI 163 cm - MR volume (PISA) 23 ml - MR ERO 0.14 cm2 - MR PISA radius 0.6 cm - MR alias Vmax 31 cm/sec - MVA (PHT) 2.4 cm2 - Name Value Normal Range TR Vmax 3.4 m/sec - TR peak gradient 46 mmHg - RAP 8 mmHg - RVSP 54 mmHg - IVC diameter 2.1 cm -
[2019-03-01 14:45] LABS: Urine Creatinine Concentration 50.05 mg/dL
[2019-03-01] MEDS: Heparin VIAL(*) 5000 UNITS/ML VIAL (FIVE THOUSAND) SUBCUT SCH (21:37)
[2019-03-01] MEDS: Doxazosin TAB* 2 MG PO SCH (21:37)
[2019-03-02] MEDS: Albuterol/Ipratropium NEB.SOL* Albuterol 2.5 MG/Ipratropium 0.5 MG 3 ML INH PRN ×3 (04:38→20:58)
[2019-03-02 05:10] LABS: Hematocrit 28 % (33-41); Hemoglobin 9.2 g/dL (12.0-16.0); Mean Corpuscular HGB Conc 33 g/dL (31-36); Mean Corpuscular Hemoglobin 30 pg (27-31); Mean Corpuscular Volume 91 fL (80-97); Mean Platelet Volume 8.6 fL (7.4-10.4); Platelet Count 192 10^3/uL (150-450); Red Blood Count 3.04 10^6 /uL (3.70-4.87); Red Cell Distribution Width 15 % (10.5-15)
[2019-03-02 05:28] LABS: Albumin 3.4 g/dL (3.2-5.2); Albumin/Globulin Ratio 1.2 (1-3); BUN/Creatinine Ratio 21.1 (8-20); EGFR African American 13.6 (>60); EGFR Non-African American 11.3 (>60); Globulin 2.9 g/dL (2-4); Magnesium 2.1 mg/dL (1.9-2.7); Potassium 4.1 mmol/L (3.5-5.0); Total Bilirubin 0.6 mg/dL (0.2-1.0); Total Protein 6.3 g/dL (6.4-8.9)
[2019-03-02] MEDS: Furosemide IV* 100 MG in NS 0.9% 100 ML* 90 ML IV SCH (07:39)
[2019-03-02] MEDS ORDERED: Furosemide IV* 10 MG/ML 2 ML VIAL (20 MG) IV STA (08:14)
[2019-03-02] MEDS ORDERED: Metolazone TAB* 5 MG PO SCH (08:30)
[2019-03-02] MEDS: Insulin LISPRO* 1 UNITS UNIT SUBCUT SCH ×4 (08:52→20:56)
[2019-03-02] MEDS: Cholecalciferol TAB* 1000 UNITS PO SCH (08:59)
[2019-03-02] MEDS: traMADol TAB* 50 MG PO SCH (08:59)
[2019-03-02] MEDS: Metoprolol Succinate XL TAB* 100 MG PO SCH (08:59)
[2019-03-02] MEDS: Pantoprazole TAB * 40 MG TAB PO SCH (09:00)
[2019-03-02] MEDS: Metolazone TAB* 5 MG PO SCH (09:05)
[2019-03-02] MEDS: Morphine 4 MG/ML VIAL (1 ml) 4 MG/ML VIAL IV PRN (09:13)
[2019-03-02] MEDS: cefTRIAXone VIAL(*) 500 MG in NS 0.9% 50 ML* 50 ML IVPB SCH (09:48)
[2019-03-02] MEDS: Heparin VIAL(*) 5000 UNITS/ML VIAL (FIVE THOUSAND) SUBCUT SCH ×2 (10:13→20:56)
[2019-03-02] MEDS: Azithromycin IV(*) 500 MG in NS 0.9% 250 ML* 250 ML IVPB SCH (11:24)
--- NOTE | 2019-03-02 17:21 | CONSULT ---
Palliative / Hospice Consult Ordering Provider: Jose Cisneros - Subjective Code Status: DNR Advance Directives Location: In Chart [facility] Part A Completed: Yes - on chart [facility] Part E Completed:: Yes - on chart - History or Present Illness History or Present Illness: 89 yo female resident of [facility] presents to ER with SOB wheezing and hypoxia. PMH is significant for CKD stage 5(declined dialysis) followed by Dr. Johnson, CHF Echo EF 30-35%, DM type 2, HTN, hyperparathyroid, TIA/CVA, breast ca , GERD, depression/anxiety and anemia. H/H 9.2/28, BUN/Cr 80/3.79 egfr 13, PTT 25.7, BNP >1380, tprot 6.3, alb 3.4, CXR pulm edema, Chest CT large bilateral pleural effusion, thyroid nodule and kidney nodule, renal u/s R kidney with mass. Non smoker, non etoh non drug user, has one adult daughter Kaitlynn [phone]. She had been living independently but after hospitalization elsewhere went to for rehab. Admitted now and [facility] acute on chronic [facility] failure. Weaned off and to be transferred to the floor once bed available. Lab Values: Abnormal Lab Results 03/01/19 03/01/19 03/02/19 17:22 21:22 05:00 WBC 8.0 RBC 3.04 L Hgb 9.2 L Hct 28 L MCV 91 MCH 30 MCHC 33 RDW 15 Plt Count 192 MPV 8.6 Sodium Potassium Chloride Carbon Dioxide Anion Gap BUN Creatinine Est GFR ( Amer) Est GFR (Non-Af Amer) BUN/Creatinine Ratio Glucose POC Glucose (mg/dL) 231 H 149 H Calcium Phosphorus Magnesium Total Bilirubin AST ALT Alkaline Phosphatase B-Natriuretic Peptide Total Protein Albumin Globulin Albumin/Globulin Ratio 03/02/19 03/02/19 03/02/19 05:00 05:00 08:51 WBC RBC Hgb Hct MCV MCH MCHC RDW Plt Count MPV Sodium 137 Potassium 4.1 Chloride 106 Carbon Dioxide 21 L Anion Gap 10 BUN 80 H Creatinine 3.79 H Est GFR ( Amer) 13.6 Est GFR (Non-Af Amer) 11.3 BUN/Creatinine Ratio 21.1 H Glucose 117 H POC Glucose (mg/dL) 114 H Calcium 10.0 Phosphorus 4.0 Magnesium 2.1 Total Bilirubin 0.60 AST 11 L ALT 9 Alkaline Phosphatase 71 B-Natriuretic Peptide > 1300 H Total Protein 6.3 L Albumin 3.4 Globulin 2.9 Albumin/Globulin Ratio 1.2 03/02/19 03/02/19 12:03 16:49 WBC RBC Hgb Hct MCV MCH MCHC RDW Plt Count MPV Sodium Potassium Chloride Carbon Dioxide Anion Gap BUN Creatinine Est GFR ( Amer) Est GFR (Non-Af Amer) BUN/Creatinine Ratio Glucose POC Glucose (mg/dL) 279 H 89 Calcium Phosphorus Magnesium Total Bilirubin AST ALT Alkaline Phosphatase B-Natriuretic Peptide Total Protein Albumin Globulin Albumin/Globulin Ratio Laboratory Last Values WBC 8.0 10^3/uL (3.5-10.8) 03/02/19 05:00 RBC 3.04 10^6 /uL (3.70-4.87) L 03/02/19 05:00 Hgb 9.2 g/dL (12.0-16.0) L 03/02/19 05:00 Hct 28 % (33-41) L 03/02/19 05:00 MCV 91 fL (80-97) 03/02/19 05:00 MCH 30 pg (27-31) 03/02/19 05:00 MCHC 33 g/dL (31-36) 03/02/19 05:00 RDW 15 % (10.5-15) 03/02/19 05:00 Plt Count 192 10^3/uL (150-450) 03/02/19 05:00 MPV 8.6 fL (7.4-10.4) 03/02/19 05:00 Neut % (Auto) 79.1 % 03/01/19 06:04 Lymph % (Auto) 10.1 % 03/01/19 06:04 [place] % (Auto) 9.2 % 03/01/19 06:04 Eos % (Auto) 1.1 % 03/01/19 06:04 Baso % (Auto) 0.5 % 03/01/19 06:04 Absolute Neuts (auto) 6.4 10^3/ul (1.5-7.7) 03/01/19 06:04 Absolute Lymphs (auto) 0.8 10^3/ul (1.0-4.8) L 03/01/19 06:04 Absolute Monos (auto) 0.7 10^3/ul (0-0.8) 03/01/19 06:04 Absolute Eos (auto) 0.1 10^3/ul (0-0.6) 03/01/19 06:04 Absolute Basos (auto) 0 10^3/ul (0-0.2) 03/01/19 06:04 Absolute Nucleated RBC 0 10^3/ul 03/01/19 06:04 Nucleated RBC % 0 03/01/19 06:04 APTT 25.7 seconds (26.0-36.3) L 02/28/19 13:16 ABG pH 7.38 (7.35-7.45) 02/28/19 13:06 ABG pCO2 34 mmHg (35-45) L 02/28/19 13:06 ABG pO2 75 mmHg (80-100) L 02/28/19 13:06 ABG HCO3 21.6 mmol/L (19-31) 02/28/19 13:06 ABG O2 Saturation 97.6 % (94.0-98.0) 02/28/19 13:06 ABG Base Excess -4.2 mmol/L (-2.0-2.0) L 02/28/19 13:06 Sodium 137 mmol/L (135-145) 03/02/19 05:00 Potassium 4.1 mmol/L (3.5-5.0) 03/02/19 05:00 Chloride 106 mmol/L (101-111) 03/02/19 05:00 Carbon Dioxide 21 mmol/L (22-32) L 03/02/19 05:00 Anion Gap 10 mmol/L (2-11) 03/02/19 05:00 BUN 80 mg/dL (6-24) H 03/02/19 05:00 Creatinine 3.79 mg/dL (0.51-0.95) H 03/02/19 05:00 Est GFR ( Amer) 13.6 (>60) 03/02/19 05:00 Est GFR (Non-Af Amer) 11.3 (>60) 03/02/19 05:00 BUN/Creatinine Ratio 21.1 (8-20) H 03/02/19 05:00 Glucose 117 mg/dL (70-100) H 03/02/19 05:00 POC Glucose (mg/dL) 89 mg/dL (70-100) 03/02/19 16:49 Lactic Acid 1.1 mmol/L (0.5-2.0) 02/28/19 13:16 Calcium 10.0 mg/dL (8.6-10.3) 03/02/19 05:00 Phosphorus 4.0 mg/dL (2.5-5.0) 03/02/19 05:00 Magnesium 2.1 mg/dL (1.9-2.7) 03/02/19 05:00 Total Bilirubin 0.60 mg/dL (0.2-1.0) 03/02/19 05:00 AST 11 U/L (13-39) L 03/02/19 05:00 ALT 9 U/L (7-52) 03/02/19 05:00 Alkaline Phosphatase 71 U/L (34-104) 03/02/19 05:00 Total Creatine Kinase 82 U/L (10-223) 02/28/19 13:16 CK-MB (CK-2) 1.2 ng/mL (0.6-6.3) 02/28/19 13:16 Troponin I 0.08 ng/mL (<0.04) H* 02/28/19 20:15 C-Reactive Protein 21.44 mg/L (<8.01) H 02/28/19 13:16 B-Natriuretic Peptide > 1300 pg/mL (<=100) H 03/02/19 05:00 Total Protein 6.3 g/dL (6.4-8.9) L 03/02/19 05:00 Albumin 3.4 g/dL (3.2-5.2) 03/02/19 05:00 Globulin 2.9 g/dL (2-4) 03/02/19 05:00 Albumin/Globulin Ratio 1.2 (1-3) 03/02/19 05:00 Urine Color Yellow 02/28/19 13:15 Urine Appearance Turbid 02/28/19 13:15 Urine pH 5.0 (5-9) 02/28/19 13:15 Ur Specific [place] 1.012 (1.010-1.030) 02/28/19 13:15 Urine Protein Negative (Negative) 02/28/19 13:15 Urine Ketones Negative (Negative) 02/28/19 13:15 Urine Blood Negative (Negative) 02/28/19 13:15 Urine Nitrate Negative (Negative) 02/28/19 13:15 Urine Bilirubin Negative (Negative) 02/28/19 13:15 Urine Urobilinogen Negative (Negative) 02/28/19 13:15 Ur Leukocyte Esterase 3+ (Negative) A 02/28/19 13:15 Urine WBC (Auto) 2+(11-20/hpf) (Absent) A 02/28/19 13:15 Urine RBC (Auto) Trace(0-2/hpf) (Absent) 02/28/19 13:15 Ur Squamous Epith Cells Present (Absent) A 02/28/19 13:15 Urine Bacteria 3+ (Absent) A 02/28/19 13:15 Hyaline Casts Present (Absent) A 02/28/19 13:15 Ur Creatinine Concen 50.05 mg/dL 03/01/19 14:20 U Sodium Concentration 75 mmol/L 03/01/19 14:20 Ur Urea Nitrogen Conc 356 mg/dL 03/01/19 14:20 Urine Glucose Negative (Negative) 02/28/19 13:15 Influenza A (Rapid) Negative (Negative) 02/28/19 14:54 Influenza B (Rapid) Negative (Negative) 02/28/19 14:54 Blood Type B Positive 03/01/19 05:58 Antibody Screen Negative 03/01/19 05:58 Crossmatch See Detail 03/01/19 05:58 - Objective Active Medications: Acetaminophen (Tylenol Tab*) 650 mg PO Q6H PRN PRN Reason: FEVER/PAIN Albuterol (Ventolin 2.5 Mg/3 Ml Neb.Petra*) 2.5 mg INH Q2H PRN PRN Reason: SOB/WHEEZING Albuterol/Ipratropium (Duoneb (Albuterol 2.5 Mg/Ipratropium 0.5 Mg)) 1 neb INH [id number] AWAKE PRN PRN Reason: SOB/WHEEZING Last Admin: 03/02/19 17:03 Dose: 1 neb Cholecalciferol (Vitamin D Tab*) 1,000 units PO DAILY [facility] Last Admin: 03/02/19 08:59 Dose: 1,000 units Dextrose (D50w Syringe 50 Ml*) 12.5 gm IV PUSH .FOR FS < 60 - SS PRN PRN Reason: FS < 60 Doxazosin Mesylate (Cardura Tab*) 2 mg PO BEDTIME [facility] Last Admin: 03/01/19 21:37 Dose: 2 mg Furosemide (Lasix Iv*) 20 mg IV SLOW PU BID [facility] Heparin Sodium (Porcine) (Heparin Vial(*)) 5,000 units SUBCUT Q12HR [facility] Last Admin: 03/02/19 10:13 Dose: 5,000 units Insulin Human Lispro (Humalog*) 0 units SUBCUT ACHS [facility]; Protocol Last Admin: 03/02/19 16:51 Dose: Not Given Metolazone (Zaroxolyn Tab*) 5 mg PO DAILY@0830 [facility] Stop: 03/04/19 10:51 Last Admin: 03/02/19 09:05 Dose: 5 mg Metoprolol Succinate (Toprol Xl Tab*) 100 mg PO DAILY [facility] Last Admin: 03/02/19 08:59 Dose: 100 mg Morphine Sulfate (Morphine 4 Mg/Ml Vial (1 Ml)) 0.5 mg IV Q6H PRN PRN Reason: SOB/Air hunger Last Admin: 03/02/19 09:13 Dose: 0.5 mg Pantoprazole Sodium (Protonix Tab*) 40 mg PO DAILY WITH MEAL [facility] Last Admin: 03/02/19 09:00 Dose: 40 mg Tramadol HCl (Ultram*) 50 mg PO DAILY WITH MEAL [facility] Last Admin: 03/02/19 08:59 Dose: 50 mg Vital Signs: Vital Signs: Temp Pulse Resp BP Pulse Ox 96.7 F 72 17 118/62 97 03/02/19 12:00 03/02/19 17:05 03/02/19 17:05 03/02/19 16:00 03/02/19 17:05 Patient Weight: Weight 102.6 kg Intake and Output: Intake & Output 02/28/19 03/01/19 03/02/19 03/03/19 06:59 06:59 06:59 06:59 Intake Total 976.7 690 Output Total 1815 950 Balance -838.3 -260 Weight 93.894 kg 102.6 kg Intake: IV Fluids 300 Azithromycin 250 Ceftriaxone 50 Medicated IV 111.7 40 lasix 111.7 40 Oral 540 350 Packed Cells 325 Output: Garcia 1815 950 ADLs: Meal Record Start: 03/01/19 10: 16 Freq: 09,13,18 Status: Active Protocol: Created 03/01/19 10:16 [id number] (Rec: 03/01/19 10:16 [id number] ISDEMO-M03 ) Document 03/01/19 14:14 [id number] (Rec: 03/01/19 14:14 [id number] ISDEMO-M03 ) Document 03/01/19 18:15 [id number] (Rec: 03/01/19 18:15 [id number] ICU-C25) Document 03/02/19 09:00 [id number] (Rec: 03/02/19 10:27 [id number] ICU-C15) Document 03/02/19 13:00 [id number] (Rec: 03/02/19 16:50 [id number] ISDEMO-M03 ) Intake and Output Start: 02/28/19 13: 03 Freq: Status: Cancelled Protocol: Created 02/28/19 13:03 System (Rec: 02/28/19 13:03 System [id number]) Intake and Output Start: 02/28/19 14: 30 Freq: 06,14,2200 Status: Inactive Protocol: Created 02/28/19 14:30 [id number] (Rec: 02/28/19 14:30 BKG [id number]) Intake and Output Start: 03/01/19 10: 16 Freq: Q1HR Status: Active Protocol: Created 03/01/19 10:16 [id number] (Rec: 03/01/19 10:16 [id number] ISDEMO-M03 ) Document 03/01/19 10:39 VGA5024 (Rec: 03/01/19 10:40 FWC1568 ISDEMO-M03 ) Document 03/01/19 11:30 EFV1984 (Rec: 03/01/19 11:30 IFS2651 ISDEMO-M03 ) Document 03/01/19 12:48 [id number] (Rec: 03/01/19 12:49 [id number] ISDEMO-M03 ) Document 03/01/19 14:12 CSZ4001 (Rec: 03/01/19 14:12 FVX7519 ISDEMO-M03 ) Document 03/01/19 14:13 HZS0115 (Rec: 03/01/19 14:14 [id number] ISDEMO-M03 ) Document 03/01/19 14:51 [id number] (Rec: 03/01/19 14:51 [id number] ISDEMO-M03 ) Document 03/01/19 17:14 GUU0102 (Rec: 03/01/19 17:17 HDO8840 ISDEMO-M03 ) Document 03/01/19 18:17 [id number] (Rec: 03/01/19 18:17 [id number] ICU-C25) Document 03/01/19 19:31 [id number] (Rec: 03/01/19 19:32 RVO6678 ISDEMO-M03 ) Document 03/01/19 20:00 LWR2686 (Rec: 03/01/19 21:09 [id number] ICU-C25) Document 03/01/19 22:00 JUJ8490 (Rec: 03/01/19 22:55 [id number] ICU-C25) Document 03/02/19 00:00 AWA0450 (Rec: 03/02/19 00:22 IIU2682 ICU-C25) Document 03/02/19 03:00 CDN0952 (Rec: 03/02/19 03:08 [id number] ICU-C25) Document 03/02/19 03:36 QLF2335 (Rec: 03/02/19 03:42 [id number] ICU-C25) Document 03/02/19 05:00 DCQ1105 (Rec: 03/02/19 05:03 FCD3067 ISDEMO-M03 ) Document 03/02/19 06:00 NDM6988 (Rec: 03/02/19 06:09 WHT9418 ICU-C25) Document 03/02/19 08:18 QQH3137 (Rec: 03/02/19 08:18 IPC9641 ICU-M35) Document 03/02/19 09:00 VFZ5350 (Rec: 03/02/19 10:08 JDV0580 ICU-M35) Document 03/02/19 10:16 [id number] (Rec: 03/02/19 10:16 [id number] ISDEMO-M03 ) Document 03/02/19 11:33 YIF8524 (Rec: 03/02/19 11:33 [id number] ISDEMO-M03 ) Document 03/02/19 12:05 QOE2253 (Rec: 03/02/19 12:05 KOC8603 ISDEMO-M03 ) Document 03/02/19 14:19 LQH4858 (Rec: 03/02/19 14:19 STG0580 ICU-C15) Document 03/02/19 16:50 [id number] (Rec: 03/02/19 16:50 [id number] ISDEMO-M03 ) Head: Normal Cardiovascular: NL Sounds; No Murmurs; No JVD Respiratory: Symmetrical Chest Expansion and Respiratory Effort Neurological: Alert and Oriented x 3 - Assessment Assessment: 89 yo female with CKD stage 5, and CHF Echo EF 30-35% seeking hospice residence - Plan Consult Plan (MU): Hospice Plan: Long discussion with daughter and pt. Pt is feeling tired of the "rig a marole" of coming back to the hospital. Is interested in hospice especially the residence. There is no one to provide 24 hr care at her apartment. If residence is not available she is interested in receiving hospice at . Explained she can change her mind at any time and go off hospice or change her MOLST form. MOLST form was reviewed no changes today. Pt has submitted a Medicaid application 3 months ago. Expressed she doesn't want to live on machines. Daughter was on [facility] board in the past. Pt qualifies for hospice with CKD stage 5 and CHF ECHO EF 30-35% with moderate MR and severely dilated L atrium. KPS 40%, PPS 40% - Time On Unit Date of Evaluation: 03/02/19 Hospice Consult Time in: 02:00 Hospice Consult Time Out: 03:30 Hospice Consult Time Total: 90 > 50% of Time Spend In Counseling or Coordinating Care: Yes
--- NOTE | 2019-03-02 18:08 | PN ---
Subjective Date of Service: 03/02/19 Interval History: Pt seen and examined. Meds and labs reviewed. CC: SOB, continues to improve ROS: Denied BATEMAN/dizziness, F/C, N/V, CP, increased cough, sputum production, abd pain, diarrhea, constipation, dysuria, myalgias, arthralgias, throat pain, and new skin lesions. The rest of the 14 point ROS are unremarkable. PHYSICAL EXAM: GEN APPEARANCE: Awake, not in acute distress HEENT: NC/AT, PERRLA, moist oral mucosa, (-) throat erythema NECK: Soft, supple, (-) cervical LAD, (-)JVD (-)HJR HEART: S1S2 WNL, RRR, No MRG CHEST: (+)Bibasal crackles, GAE, No W/R/R ABD: Soft, ND/NT, NABS 4x Q EXT: No C/C/Compression stockings make it hard to further eval edema SKIN: Warm to touch PSYCH: No active psychosis, hallucinations, depression, SI/HI Objective Active Medications: Acetaminophen (Tylenol Tab*) 650 mg PO Q6H PRN PRN Reason: FEVER/PAIN Albuterol (Ventolin 2.5 Mg/3 Ml Neb.Petra*) 2.5 mg INH Q2H PRN PRN Reason: SOB/WHEEZING Albuterol/Ipratropium (Duoneb (Albuterol 2.5 Mg/Ipratropium 0.5 Mg)) 1 neb INH [id number] AWAKE PRN PRN Reason: SOB/WHEEZING Last Admin: 03/02/19 17:03 Dose: 1 neb Cholecalciferol (Vitamin D Tab*) 1,000 units PO DAILY [facility] Last Admin: 03/02/19 08:59 Dose: 1,000 units Dextrose (D50w Syringe 50 Ml*) 12.5 gm IV PUSH .FOR FS < 60 - SS PRN PRN Reason: FS < 60 Doxazosin Mesylate (Cardura Tab*) 2 mg PO BEDTIME [facility] Last Admin: 03/01/19 21:37 Dose: 2 mg Furosemide (Lasix Iv*) 20 mg IV SLOW PU BID [facility] Heparin Sodium (Porcine) (Heparin Vial(*)) 5,000 units SUBCUT Q12HR [facility] Last Admin: 03/02/19 10:13 Dose: 5,000 units Insulin Human Lispro (Humalog*) 0 units SUBCUT ACHS [facility]; Protocol Last Admin: 03/02/19 16:51 Dose: Not Given Metolazone (Zaroxolyn Tab*) 5 mg PO DAILY@0830 [facility] Stop: 03/04/19 10:51 Last Admin: 03/02/19 09:05 Dose: 5 mg Metoprolol Succinate (Toprol Xl Tab*) 100 mg PO DAILY [facility] Last Admin: 03/02/19 08:59 Dose: 100 mg Morphine Sulfate (Morphine 4 Mg/Ml Vial (1 Ml)) 0.5 mg IV Q6H PRN PRN Reason: SOB/Air hunger Last Admin: 03/02/19 09:13 Dose: 0.5 mg Pantoprazole Sodium (Protonix Tab*) 40 mg PO DAILY WITH MEAL [facility] Last Admin: 03/02/19 09:00 Dose: 40 mg Tramadol HCl (Ultram*) 50 mg PO DAILY WITH MEAL [facility] Last Admin: 03/02/19 08:59 Dose: 50 mg Vital Signs - 8 hr 03/02/19 03/02/19 03/02/19 11:00 11:01 12:00 Temperature 96.7 F Pulse Rate 75 74 Respiratory 20 19 19 Rate Blood Pressure 121/60 107/58 (mmHg) O2 Sat by Pulse 98 97 Oximetry 03/02/19 03/02/19 03/02/19 12:01 12:34 13:00 Temperature Pulse Rate 74 71 71 Respiratory 22 17 18 Rate Blood Pressure 111/61 125/64 (mmHg) O2 Sat by Pulse 97 99 97 Oximetry 03/02/19 03/02/19 03/02/19 14:00 14:34 15:00 Temperature Pulse Rate 74 72 73 Respiratory 21 21 20 Rate Blood Pressure 119/77 134/67 127/66 (mmHg) O2 Sat by Pulse 93 94 95 Oximetry 03/02/19 03/02/19 03/02/19 16:00 16:01 17:05 Temperature Pulse Rate 69 69 72 Respiratory 18 16 17 Rate Blood Pressure 118/62 (mmHg) O2 Sat by Pulse 96 96 97 Oximetry Oxygen Devices in Use Now: High Flow Nasal Cannula Result Diagrams: 03/02/19 05:00 03/02/19 05:00 Microbiology and Other Data: Microbiology 02/28/19 13:18 Blood Culture - Preliminary Blood Venous No Growth Day 1 03/01/19 10:42 Nasal Screen MRSA (PCR) - Final Nasal Mrsa Not Detected 02/28/19 13:15 Urine Culture - Preliminary Urine Escherichia Coli 02/28/19 13:15 Legionella Urinary Antigen - Final Urine Negative Legionella Antigen 02/28/19 13:15 Streptococcus pneumoniae Ag Screen - Final Urine Negative S. pneumo Antigen Assess/Plan/Problems-Billing Assessment: - Patient Problems (1) Acute and chronic respiratory failure with hypoxia Current Visit: Yes Status: Acute Code(s): J96.21 - ACUTE AND CHRONIC RESPIRATORY FAILURE WITH HYPOXIA SNOMED Code(s): 39841692 Comment: -Likely due to CHF -Clinically, the pt does not seem to present with cough, fevers, and sputum production; this together with CXR that appears more congested appears to place PNA at lower differential; CT scan shows no definitive consolidation and given clinical picture, D/Cd abx -Blood Cx (-) x 2 days -D/C Lasix gtt, continue PO metolazone and placed pt on low dose Lasix BID -Will transfuse w/1 unit PRBC, appropriately typed and screened -Will nebulize as ordered -Re-bolus w/20 mg of IV Lasix post-transfusion and begin Lasix gtt and Metolazone while transfusion on-going (discussed w/Farzad RN). -Follow BNP in AM (2) Incidentaloma of thyroid gland Current Visit: Yes Status: Acute Code(s): D49.7 - NEOPLM OF UNSP BEHAV OF ENDO GLANDS AND OTH PRT NERVOUS SYS SNOMED Code(s): 75699823662609 Comment: -Of thyroid and renal lesions; renal lesion suspicious of Renal cell CA on renal U/S, however, pt and daughter at bedside wants to go in hospice due to frequent hospitalizations; will discuss these incidental findings given plan for possible hospice (3) Elevated troponin Current Visit: Yes Status: Acute Code(s): R74.8 - ABNORMAL LEVELS OF OTHER SERUM ENZYMES SNOMED Code(s): 252375040 Comment: -Likely due to acute on chronic renal insufficiency w/demand ischemia given above -Will await result of 2D echo ordered -Continue supportive care and watchful waiting (4) Acute on chronic renal insufficiency Current Visit: Yes Status: Acute Code(s): N28.9 - DISORDER OF KIDNEY AND URETER, UNSPECIFIED; N18.9 - CHRONIC KIDNEY DISEASE, UNSPECIFIED SNOMED Code(s ): 360528639 Comment: -Likely pre-renal given above -Will check for urine lytes to calculate for FE-Urea -Continue supportive care described above (5) UTI (urinary tract infection) Current Visit: Yes Status: Acute Comment: -E. coli -Received Levaquin on admx -S/P 3rd Abx day (1st day Levaquin; 2 days Rocephin) -D/Cd Abx after receiving last dose of Rocephin today (6) Diabetes 1.5, managed as type 2 Current Visit: Yes Status: Acute Code(s): E13.9 - OTHER SPECIFIED DIABETES MELLITUS WITHOUT COMPLICATIONS SNOMED Code(s): 466057823 Comment: -Well-controlled -Continue ISS (7) DVT prophylaxis Current Visit: Yes Status: Acute Code(s): ATV5602 - SNOMED Code(s): 635976672 Comment: -Heparin SQq12H added to regimen as planned Status and Disposition: -As above -Will discuss incidental findings w/pt and family to determine best course of action given their interest in hospice care
[2019-03-02] MEDS: Furosemide IV* 10 MG/ML 2 ML VIAL (20 MG) IV SLOW PU SCH (20:56)
[2019-03-02] MEDS: Doxazosin TAB* 2 MG PO SCH (20:57)
[2019-03-03 05:36] LABS: ABS Basophils 0 10^3/ul (0-0.2); ABS Eosinophils 0.1 10^3/ul (0-0.6); ABS Lymphocytes 0.5 10^3/ul (1.0-4.8); ABS Monocytes 0.5 10^3/ul (0-0.8); ABS Neutrophils 4.4 10^3/ul (1.5-7.7); ABS Nucleated RBC 0 10^3/ul; Eosinophil % 2.6 %; Hematocrit 21 % (33-41); Hemoglobin 6.7 g/dL (12.0-16.0); Lymphocyte % 8.3 %; Mean Corpuscular HGB Conc 33 g/dL (31-36); Mean Corpuscular Hemoglobin 30 pg (27-31); Mean Corpuscular Volume 91 fL (80-97); Mean Platelet Volume 8.4 fL (7.4-10.4); Nucleated Red Blood Cells % 0; Platelet Count 166 10^3/uL (150-450); Red Blood Count 2.25 10^6 /uL (3.70-4.87); Red Cell Distribution Width 14 % (10.5-15); White Blood Count 5.6 10^3/uL (3.5-10.8)
[2019-03-03] MEDS: Albuterol/Ipratropium NEB.SOL* Albuterol 2.5 MG/Ipratropium 0.5 MG 3 ML INH PRN (05:43)
[2019-03-03] MEDS: Acetaminophen TAB* 325 MG PO PRN (05:51)
[2019-03-03 05:53] LABS: BUN/Creatinine Ratio 22.9 (8-20); Calcium 8.7 mg/dL (8.6-10.3); EGFR African American 15.9 (>60); EGFR Non-African American 13.1 (>60); Potassium 3.4 mmol/L (3.5-5.0)
[2019-03-03] MEDS: Morphine 4 MG/ML VIAL (1 ml) 4 MG/ML VIAL IV PRN (05:55)
[2019-03-03] MEDS: Metoprolol Succinate XL TAB* 100 MG PO SCH (08:24)
[2019-03-03] MEDS: Cholecalciferol TAB* 1000 UNITS PO SCH (08:24)
[2019-03-03] MEDS: Pantoprazole TAB * 40 MG TAB PO SCH (08:25)
[2019-03-03] MEDS: traMADol TAB* 50 MG PO SCH (08:25)
[2019-03-03] MEDS: Metolazone TAB* 5 MG PO SCH (08:25)
[2019-03-03 08:52] LABS: Hematocrit 25 % (33-41); Hemoglobin 8.2 g/dL (12.0-16.0); Mean Corpuscular HGB Conc 33 g/dL (31-36); Mean Corpuscular Hemoglobin 30 pg (27-31); Mean Corpuscular Volume 91 fL (80-97); Red Blood Count 2.75 10^6 /uL (3.70-4.87); Red Cell Distribution Width 14 % (10.5-15); White Blood Count 7.3 10^3/uL (3.5-10.8)
[2019-03-03 08:53] LABS: ABS Basophils 0 10^3/ul (0-0.2); ABS Eosinophils 0.1 10^3/ul (0-0.6); ABS Lymphocytes 0.5 10^3/ul (1.0-4.8); ABS Monocytes 0.7 10^3/ul (0-0.8); ABS Nucleated RBC 0 10^3/ul; Eosinophil % 1.8 %; Lymphocyte % 6.8 %; Mean Platelet Volume 8.6 fL (7.4-10.4); Nucleated Red Blood Cells % 0; Platelet Count 198 10^3/uL (150-450)
[2019-03-03] MEDS: Insulin LISPRO* 1 UNITS UNIT SUBCUT SCH ×4 (08:53→22:07)
[2019-03-03] MEDS: Furosemide IV* 10 MG/ML 2 ML VIAL (20 MG) IV SLOW PU SCH ×2 (08:54→22:04)
[2019-03-03] MEDS: Heparin VIAL(*) 5000 UNITS/ML VIAL (FIVE THOUSAND) SUBCUT SCH ×2 (10:15→22:06)
[2019-03-03 14:10] LABS: TSH (Thyroid Stimulating Horm) 2.28 mcIU/mL (0.34-5.60)
[2019-03-03] MEDS ORDERED: Albuterol/Ipratropium NEB.SOL* Albuterol 2.5 MG/Ipratropium 0.5 MG 3 ML INH PRN (15:38)
--- NOTE | 2019-03-03 15:47 | PN ---
Subjective Date of Service: 03/03/19 Interval History: Pt seen and examined. Meds and labs reviewed. CC: SOB, continues to improve ROS: Denied BATEMAN/dizziness, F/C, N/V, CP, increased cough, sputum production, abd pain, diarrhea, constipation, dysuria, myalgias, arthralgias, throat pain, and new skin lesions. The rest of the 14 point ROS are unremarkable. PHYSICAL EXAM: GEN APPEARANCE: Awake, not in acute distress HEENT: NC/AT, PERRLA, moist oral mucosa, (-) throat erythema NECK: Soft, supple, (-) cervical LAD, (-)JVD (-)HJR HEART: S1S2 WNL, RRR, No MRG CHEST: (+)Bibasal crackles, GAE, No W/R/R ABD: Soft, ND/NT, NABS 4x Q EXT: No C/C/Compression stockings make it hard to further eval edema SKIN: Warm to touch PSYCH: No active psychosis, hallucinations, depression, SI/HI Objective Active Medications: Acetaminophen (Tylenol Tab*) 650 mg PO Q6H PRN PRN Reason: FEVER/PAIN Last Admin: 03/03/19 05:51 Dose: 650 mg Albuterol (Ventolin 2.5 Mg/3 Ml Neb.Petra*) 2.5 mg INH Q2H PRN PRN Reason: SOB/WHEEZING Albuterol/Ipratropium (Duoneb (Albuterol 2.5 Mg/Ipratropium 0.5 Mg)) 1 neb INH Q4H PRN PRN Reason: SOB/WHEEZING Cholecalciferol (Vitamin D Tab*) 1,000 units PO DAILY [facility] Last Admin: 03/03/19 08:24 Dose: 1,000 units Dextrose (D50w Syringe 50 Ml*) 12.5 gm IV PUSH .FOR FS < 60 - SS PRN PRN Reason: FS < 60 Doxazosin Mesylate (Cardura Tab*) 2 mg PO BEDTIME [facility] Last Admin: 03/02/19 20:57 Dose: 2 mg Furosemide (Lasix Iv*) 40 mg IV SLOW PU BID [facility] Heparin Sodium (Porcine) (Heparin Vial(*)) 5,000 units SUBCUT Q12HR [facility] Last Admin: 03/03/19 10:15 Dose: 5,000 units Insulin Human Lispro (Humalog*) 0 units SUBCUT ACHS [facility]; Protocol Last Admin: 03/03/19 12:39 Dose: 3 units Metolazone (Zaroxolyn Tab*) 5 mg PO DAILY@0830 [facility] Stop: 03/04/19 10:51 Last Admin: 03/03/19 08:25 Dose: 5 mg Metoprolol Succinate (Toprol Xl Tab*) 100 mg PO DAILY [facility] Last Admin: 03/03/19 08:24 Dose: 100 mg Morphine Sulfate (Morphine 4 Mg/Ml Vial (1 Ml)) 0.5 mg IV Q6H PRN PRN Reason: SOB/Air hunger Last Admin: 03/03/19 05:55 Dose: 0.5 mg Pantoprazole Sodium (Protonix Tab*) 40 mg PO DAILY WITH MEAL [facility] Last Admin: 03/03/19 08:25 Dose: 40 mg Tramadol HCl (Ultram*) 50 mg PO DAILY WITH MEAL [facility] Last Admin: 03/03/19 08:25 Dose: 50 mg Vital Signs - 8 hr 03/03/19 03/03/19 03/03/19 08:00 08:01 08:18 Temperature 98.9 F Pulse Rate 69 74 Respiratory 18 16 17 Rate Blood Pressure 140/84 (mmHg) O2 Sat by Pulse 100 97 Oximetry 03/03/19 03/03/19 03/03/19 09:00 09:01 10:00 Temperature Pulse Rate 74 74 67 Respiratory 19 22 17 Rate Blood Pressure 146/85 (mmHg) O2 Sat by Pulse 97 97 99 Oximetry 03/03/19 03/03/19 03/03/19 10:01 11:12 12:41 Temperature 98.2 F Pulse Rate 67 77 Respiratory 17 20 20 Rate Blood Pressure 130/68 137/51 (mmHg) O2 Sat by Pulse 99 95 Oximetry 03/03/19 15:17 Temperature 97.7 F Pulse Rate 81 Respiratory 20 Rate Blood Pressure 142/47 (mmHg) O2 Sat by Pulse Oximetry Oxygen Devices in Use Now: High Flow Nasal Cannula Result Diagrams: 03/03/19 08:21 03/03/19 05:18 Microbiology and Other Data: Microbiology 02/28/19 13:18 Blood Culture - Preliminary Blood Venous No Growth Day 1 03/01/19 10:42 Nasal Screen MRSA (PCR) - Final Nasal Mrsa Not Detected 02/28/19 13:15 Urine Culture - Preliminary Urine Escherichia Coli 02/28/19 13:15 Legionella Urinary Antigen - Final Urine Negative Legionella Antigen 02/28/19 13:15 Streptococcus pneumoniae Ag Screen - Final Urine Negative S. pneumo Antigen Assess/Plan/Problems-Billing Assessment: - Patient Problems (1) Acute and chronic respiratory failure with hypoxia Current Visit: Yes Status: Acute Code(s): J96.21 - ACUTE AND CHRONIC RESPIRATORY FAILURE WITH HYPOXIA SNOMED Code(s): 66106317 Comment: -Likely due to CHF exacerbation -Clinically, the pt does not seem to present with cough, fevers, and sputum production; this together with CXR that appears more congested appears to place PNA at lower differential; CT scan shows no definitive consolidation and given clinical picture, D/Cd abx -Blood Cx (-) x 3 days -Continue PO metolazone -Will increase IV Lasix BID as ordered -S/P 1 unit PRBC transfusion (03/02/19); repeat CBC this AM suggests earlier one was likely erroneous; no report of GIB -Continue nebulize as ordered; converted ATC Duoneb order to PRN -Follow BNP in AM (2) Incidentaloma of thyroid gland Current Visit: Yes Status: Acute Code(s): D49.7 - NEOPLM OF UNSP BEHAV OF ENDO GLANDS AND OTH PRT NERVOUS SYS SNOMED Code(s): 73273823646797 Comment: -TSH WNL -Discussed possibilities with pt and daughter at bedside; please see similar discussion below (3) Renal mass Current Visit: Yes Status: Acute Code(s): N28.89 - OTHER SPECIFIED DISORDERS OF KIDNEY AND URETER SNOMED Code(s): 154283734 Comment: -Right renal mass suspicious of renal cell CA; pt and daughter at bedside informed -Given pts desire to go into hospice prior to above lesions being discovered incidentally by CT of chest, daughter mentioned she will speak with her mom and the rest of her family to figure out whether they would like to pursue diagnostic and therapeutic evaluation -Will defer (4) Elevated troponin Current Visit: Yes Status: Acute Code(s): R74.8 - ABNORMAL LEVELS OF OTHER SERUM ENZYMES SNOMED Code(s): 319567592 Comment: -Likely due to acute on chronic renal insufficiency w/demand ischemia given above -Will await result of 2D echo ordered -Continue supportive care and watchful waiting (5) Acute on chronic renal insufficiency Current Visit: Yes Status: Acute Code(s): N28.9 - DISORDER OF KIDNEY AND URETER, UNSPECIFIED; N18.9 - CHRONIC KIDNEY DISEASE, UNSPECIFIED SNOMED Code(s ): 240430666 Comment: -Likely pre-renal given above; w/c is supported by FE-Urea = 34.81% -Continue supportive care described above (6) UTI (urinary tract infection) Current Visit: Yes Status: Acute Comment: -E. coli -Received Levaquin on admx -3rd dose of Rocephin received todayfinal dose -Continue watchful waiting (7) Diabetes 1.5, managed as type 2 Current Visit: Yes Status: Acute Code(s): E13.9 - OTHER SPECIFIED DIABETES MELLITUS WITHOUT COMPLICATIONS SNOMED Code(s): 175843082 Comment: -Well-controlled -Continue ISS (8) DVT prophylaxis Current Visit: Yes Status: Acute Code(s): OHB3575 - SNOMED Code(s): 317958655 Comment: -Continue Heparin SQq12H Status and Disposition: -As above -Will await for family and pt to discuss above incidental findings
[2019-03-03] MEDS: Doxazosin TAB* 2 MG PO SCH (22:08)
[2019-03-04 05:02] LABS: ABS Basophils 0 10^3/ul (0-0.2); ABS Eosinophils 0.2 10^3/ul (0-0.6); ABS Lymphocytes 0.6 10^3/ul (1.0-4.8); ABS Monocytes 0.7 10^3/ul (0-0.8); ABS Neutrophils 5.2 10^3/ul (1.5-7.7); ABS Nucleated RBC 0 10^3/ul; Eosinophil % 3.3 %; Hematocrit 24 % (33-41); Hemoglobin 8.3 g/dL (12.0-16.0); Lymphocyte % 9.2 %; Mean Corpuscular HGB Conc 34 g/dL (31-36); Mean Corpuscular Hemoglobin 31 pg (27-31); Mean Corpuscular Volume 90 fL (80-97); Mean Platelet Volume 8.3 fL (7.4-10.4); Nucleated Red Blood Cells % 0; Platelet Count 211 10^3/uL (150-450); Red Cell Distribution Width 14 % (10.5-15); White Blood Count 6.9 10^3/uL (3.5-10.8)
[2019-03-04 05:23] LABS: Anion Gap 9 mmol/L (2-11); BUN/Creatinine Ratio 24.3 (8-20); Blood Urea Nitrogen 87 mg/dL (6-24); CO2 Carbon Dioxide 25 mmol/L (22-32); Calcium 9.4 mg/dL (8.6-10.3); Chloride 104 mmol/L (101-111); EGFR African American 14.6 (>60); Glucose 93 mg/dL (70-100); Potassium 3.5 mmol/L (3.5-5.0); Sodium 138 mmol/L (135-145)
[2019-03-04 05:39] LABS: Troponin I 0.12 ng/mL (<0.04)
[2019-03-04] MEDS: Insulin LISPRO* 1 UNITS UNIT SUBCUT SCH ×4 (08:48→20:12)
[2019-03-04] MEDS: Pantoprazole TAB * 40 MG TAB PO SCH (08:59)
[2019-03-04] MEDS: traMADol TAB* 50 MG PO SCH (09:00)
[2019-03-04] MEDS: Metoprolol Succinate XL TAB* 100 MG PO SCH (09:00)
[2019-03-04] MEDS: Heparin VIAL(*) 5000 UNITS/ML VIAL (FIVE THOUSAND) SUBCUT SCH ×2 (09:00→20:42)
[2019-03-04] MEDS: Metolazone TAB* 5 MG PO SCH (09:00)
[2019-03-04] MEDS: Cholecalciferol TAB* 1000 UNITS PO SCH (09:00)
[2019-03-04] MEDS: Furosemide IV* 10 MG/ML 2 ML VIAL (20 MG) IV SLOW PU SCH ×2 (09:43→20:43)
[2019-03-04] MEDS: Acetaminophen TAB* 325 MG PO PRN (17:30)
[2019-03-04] MEDS ORDERED: Senna TAB PO PRN (17:40)
[2019-03-04] MEDS ORDERED: Morphine ORAL.SOLN 10 mg* 2 MG/ML UDC 5 ml PO PRN (17:41)
--- NOTE | 2019-03-04 18:04 | PN ---
Subjective Date of Service: 03/04/19 Interval History: Pt is feeling well currently. She denies any SOB at this time. Her biggest c/o currently is L ring finger pain and aching in her feet. She wants me to talk to her daughter but she is not in the room presently. Objective Active Medications: Acetaminophen (Tylenol Tab*) 650 mg PO Q6H PRN PRN Reason: FEVER/PAIN Last Admin: 03/04/19 17:30 Dose: 650 mg Albuterol (Ventolin 2.5 Mg/3 Ml Neb.Petra*) 2.5 mg INH Q2H PRN PRN Reason: SOB/WHEEZING Albuterol/Ipratropium (Duoneb (Albuterol 2.5 Mg/Ipratropium 0.5 Mg)) 1 neb INH Q4H PRN PRN Reason: SOB/WHEEZING Last Admin: 03/03/19 20:51 Dose: 1 neb Cholecalciferol (Vitamin D Tab*) 1,000 units PO DAILY [facility] Last Admin: 03/04/19 09:00 Dose: 1,000 units Dextrose (D50w Syringe 50 Ml*) 12.5 gm IV PUSH .FOR FS < 60 - SS PRN PRN Reason: FS < 60 Docusate Sodium (Colace Cap*) 100 mg PO BID [facility] Doxazosin Mesylate (Cardura Tab*) 2 mg PO BEDTIME [facility] Last Admin: 03/03/19 22:08 Dose: 2 mg Furosemide (Lasix Iv*) 40 mg IV SLOW PU BID [facility] Last Admin: 03/04/19 09:43 Dose: 40 mg Heparin Sodium (Porcine) (Heparin Vial(*)) 5,000 units SUBCUT Q12HR [facility] Last Admin: 03/04/19 09:00 Dose: 5,000 units Insulin Human Lispro (Humalog*) 0 units SUBCUT ACHS [facility]; Protocol Last Admin: 03/04/19 17:30 Dose: 3 units Metoprolol Succinate (Toprol Xl Tab*) 100 mg PO DAILY [facility] Last Admin: 03/04/19 09:00 Dose: 100 mg Morphine Sulfate (Morphine Oral.Soln 10 Mg*) 10 mg PO Q4H PRN PRN Reason: pain or air hunger Pantoprazole Sodium (Protonix Tab*) 40 mg PO DAILY WITH MEAL [facility] Last Admin: 03/04/19 08:59 Dose: 40 mg Polyethylene Glycol/Electrolytes (Miralax*) 17 gm PO DAILY PRN PRN Reason: CONSTIPATION Senna (Senokot Tab*) 1 tab PO BEDTIME PRN PRN Reason: CONSTIPATION Tramadol HCl (Ultram*) 50 mg PO DAILY WITH MEAL [facility] Last Admin: 03/04/19 09:00 Dose: 50 mg Vital Signs - 8 hr 03/04/19 03/04/19 03/04/19 11:00 11:51 15:15 Temperature 98.9 F 98.9 F Pulse Rate 73 74 Respiratory 20 20 26 Rate Blood Pressure 123/41 137/45 (mmHg) O2 Sat by Pulse 94 97 Oximetry 03/04/19 15:20 Temperature Pulse Rate 74 Respiratory Rate Blood Pressure 137/45 (mmHg) O2 Sat by Pulse 97 Oximetry Oxygen Devices in Use Now: Nasal Cannula Appearance: Elderly female sitting up in bed, NAD Eyes: No Scleral Icterus Ears/Nose/Mouth/Throat: Mucous Membranes Moist Respiratory: Symmetrical Chest Expansion and Respiratory Effort, Clear to Auscultation - diminished breath sounds in the bases with minimal crackles Cardiovascular: NL Sounds; No Murmurs; No JVD, RRR, No Edema Abdominal: NL Sounds; No Tenderness; No Distention Extremities: No Clubbing, Cyanosis Skin: No Nodules or Sclerosis Neurological: Alert and Oriented x 3 Result Diagrams: 03/04/19 04:22 03/04/19 04:22 Microbiology and Other Data: Microbiology 02/28/19 13:18 Blood Culture - Preliminary Blood Venous No Growth Day 1 03/01/19 10:42 Nasal Screen MRSA (PCR) - Final Nasal Mrsa Not Detected 02/28/19 13:15 Urine Culture - Preliminary Urine Escherichia Coli 02/28/19 13:15 Legionella Urinary Antigen - Final Urine Negative Legionella Antigen 02/28/19 13:15 Streptococcus pneumoniae Ag Screen - Final Urine Negative S. pneumo Antigen Assess/Plan/Problems-Billing Ms Waterman is an 89 yo F who has a h/o CHF, stage III-IV CKD and type II DM admitted with hypoxic respiratory failure. - Patient Problems (1) Acute and chronic respiratory failure with hypoxia Current Visit: Yes Status: Acute Code(s): J96.21 - ACUTE AND CHRONIC RESPIRATORY FAILURE WITH HYPOXIA SNOMED Code(s): 75023188 Comment: Secondary to systolic CHF exacerbation. Continue BID IV lasix for now. Reassess fluid status tomorrow. Pt felt to be a candidate for hospice. Awaiting discharge plan (residence or back to [facility]). (2) UTI (urinary tract infection) Current Visit: Yes Status: Acute Comment: Pt grew oliver sensitive Ecoli. Will start keflex to complete 4 more days as 3 days of treatment is not appropriate for a post menopausal woman. (3) Chronic kidney disease, stage IV (severe) Current Visit: Yes Status: Acute Code(s): N18.4 - CHRONIC KIDNEY DISEASE, STAGE 4 (SEVERE) SNOMED Code(s): 117231306 Comment: Creatinine remains stable. Continue current medication regimen. (4) Elevated troponin Current Visit: Yes Status: Acute Code(s): R74.8 - ABNORMAL LEVELS OF OTHER SERUM ENZYMES SNOMED Code(s): 120647250 Comment: Secondary to CHF exacerbation. No further work up at this time. (5) Type II diabetes mellitus Current Visit: Yes Status: Acute Comment: Blood sugars are under fair control. Continue current medication regimen. (6) DVT prophylaxis Current Visit: Yes Status: Acute Code(s): FLJ9677 - SNOMED Code(s): 929210545 Comment: SQ heparin (7) DNR (do not resuscitate) Current Visit: Yes Status: Acute Status and Disposition: .
[2019-03-04] MEDS: Cephalexin CAP* 500 MG PO SCH (20:38)
[2019-03-04] MEDS: Docusate CAP* 100 MG PO SCH (20:38)
[2019-03-04] MEDS: Doxazosin TAB* 2 MG PO SCH (20:39)
[2019-03-04] MEDS: Polyethylene Glycol 3350* 17 GM PACKET PO PRN (20:41)
[2019-03-05] MEDS: Insulin LISPRO* 1 UNITS UNIT SUBCUT SCH ×4 (08:46→21:37)
[2019-03-05] MEDS: Heparin VIAL(*) 5000 UNITS/ML VIAL (FIVE THOUSAND) SUBCUT SCH ×2 (08:47→21:50)
[2019-03-05] MEDS: Furosemide IV* 10 MG/ML 2 ML VIAL (20 MG) IV SLOW PU SCH ×2 (08:49→21:51)
[2019-03-05] MEDS: Polyethylene Glycol 3350* 17 GM PACKET PO PRN (08:50)
[2019-03-05] MEDS: traMADol TAB* 50 MG PO SCH (08:50)
[2019-03-05] MEDS: Cephalexin CAP* 500 MG PO SCH ×2 (08:50→21:48)
[2019-03-05] MEDS: Cholecalciferol TAB* 1000 UNITS PO SCH (08:51)
[2019-03-05] MEDS: Acetaminophen TAB* 325 MG PO PRN (08:51)
[2019-03-05] MEDS: Pantoprazole TAB * 40 MG TAB PO SCH (08:51)
[2019-03-05] MEDS: Metoprolol Succinate XL TAB* 100 MG PO SCH (08:51)
[2019-03-05] MEDS: Docusate CAP* 100 MG PO SCH ×2 (08:51→21:37)
--- NOTE | 2019-03-05 16:55 | PN ---
Subjective Date of Service: 03/05/19 Interval History: Paulette states she is feeling quite well currently. She denies any SOB. No pain. She is agreeable to going back to [facility] tomorrow. She has not had a BM in about 6 days. Need to get cronin catheter out today. Objective Active Medications: Acetaminophen (Tylenol Tab*) 650 mg PO Q6H PRN PRN Reason: FEVER/PAIN Last Admin: 03/05/19 08:51 Dose: 650 mg Albuterol (Ventolin 2.5 Mg/3 Ml Neb.Petra*) 2.5 mg INH Q2H PRN PRN Reason: SOB/WHEEZING Albuterol/Ipratropium (Duoneb (Albuterol 2.5 Mg/Ipratropium 0.5 Mg)) 1 neb INH Q4H PRN PRN Reason: SOB/WHEEZING Last Admin: 03/03/19 20:51 Dose: 1 neb Cephalexin HCl (Keflex Cap*) 500 mg PO BID [facility] Last Admin: 03/05/19 08:50 Dose: 500 mg Cholecalciferol (Vitamin D Tab*) 1,000 units PO DAILY [facility] Last Admin: 03/05/19 08:51 Dose: 1,000 units Dextrose (D50w Syringe 50 Ml*) 12.5 gm IV PUSH .FOR FS < 60 - SS PRN PRN Reason: FS < 60 Docusate Sodium (Colace Cap*) 100 mg PO BID [facility] Last Admin: 03/05/19 08:51 Dose: 100 mg Doxazosin Mesylate (Cardura Tab*) 2 mg PO BEDTIME [facility] Last Admin: 03/04/19 20:39 Dose: 2 mg Furosemide (Lasix Iv*) 40 mg IV SLOW PU BID [facility] Last Admin: 03/05/19 08:49 Dose: 40 mg Heparin Sodium (Porcine) (Heparin Vial(*)) 5,000 units SUBCUT Q12HR [facility] Last Admin: 03/05/19 08:47 Dose: 5,000 units Insulin Human Lispro (Humalog*) 0 units SUBCUT ACHS [facility]; Protocol Last Admin: 03/05/19 16:26 Dose: Not Given Lactulose (Lactulose*) 30 ml PO BID PRN PRN Reason: CONSTIPATION Last Admin: 03/05/19 15:47 Dose: 30 ml Metoprolol Succinate (Toprol Xl Tab*) 100 mg PO DAILY [facility] Last Admin: 03/05/19 08:51 Dose: 100 mg Morphine Sulfate (Morphine Oral.Soln 10 Mg*) 10 mg PO Q4H PRN PRN Reason: pain or air hunger Pantoprazole Sodium (Protonix Tab*) 40 mg PO DAILY WITH MEAL [facility] Last Admin: 03/05/19 08:51 Dose: 40 mg Polyethylene Glycol/Electrolytes (Miralax*) 17 gm PO DAILY PRN PRN Reason: CONSTIPATION Last Admin: 03/05/19 08:50 Dose: 17 gm Senna (Senokot Tab*) 1 tab PO BEDTIME PRN PRN Reason: CONSTIPATION Last Admin: 03/04/19 20:37 Dose: 1 tab Tramadol HCl (Ultram*) 50 mg PO DAILY WITH MEAL [facility] Last Admin: 03/05/19 08:50 Dose: 50 mg Vital Signs - 8 hr 03/05/19 03/05/19 03/05/19 11:00 11:38 15:15 Temperature 97.9 F 98.4 F Pulse Rate 64 65 Respiratory 16 18 16 Rate Blood Pressure 130/42 139/40 (mmHg) O2 Sat by Pulse 96 94 Oximetry Oxygen Devices in Use Now: Nasal Cannula Appearance: Elderly female sitting up in a chair, NAD Eyes: No Scleral Icterus Ears/Nose/Mouth/Throat: Mucous Membranes Moist Respiratory: Symmetrical Chest Expansion and Respiratory Effort, Clear to Auscultation Cardiovascular: NL Sounds; No Murmurs; No JVD, RRR, No Edema Abdominal: NL Sounds; No Tenderness; No Distention Extremities: No Clubbing, Cyanosis Skin: No Nodules or Sclerosis Neurological: Alert and Oriented x 3 Result Diagrams: 03/04/19 04:22 03/04/19 04:22 Microbiology and Other Data: Microbiology 02/28/19 13:18 Blood Culture - Preliminary Blood Venous No Growth Day 1 03/01/19 10:42 Nasal Screen MRSA (PCR) - Final Nasal Mrsa Not Detected 02/28/19 13:15 Urine Culture - Preliminary Urine Escherichia Coli 02/28/19 13:15 Legionella Urinary Antigen - Final Urine Negative Legionella Antigen 02/28/19 13:15 Streptococcus pneumoniae Ag Screen - Final Urine Negative S. pneumo Antigen Assess/Plan/Problems-Billing Ms Waterman is an 89 yo F who has a h/o CHF, stage III-IV CKD and type II DM admitted with hypoxic respiratory failure. - Patient Problems (1) Acute and chronic respiratory failure with hypoxia Current Visit: Yes Status: Acute Code(s): J96.21 - ACUTE AND CHRONIC RESPIRATORY FAILURE WITH HYPOXIA SNOMED Code(s): 19520279 Comment: Secondary to systolic CHF exacerbation. 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 Now not clear pt will qualify for hopsice but plan will be to go back to [facility] tomorrow. (2) UTI (urinary tract infection) Current Visit: Yes Status: Acute Comment: Pt grew oliver sensitive Ecoli. Continue keflex x 2more days. (3) Chronic kidney disease, stage IV (severe) Current Visit: Yes Status: Acute Code(s): N18.4 - CHRONIC KIDNEY DISEASE, STAGE 4 (SEVERE) SNOMED Code(s): 599767276 Comment: Creatinine remains stable. Continue current medication regimen. (4) Elevated troponin Current Visit: Yes Status: Acute Code(s): R74.8 - ABNORMAL LEVELS OF OTHER SERUM ENZYMES SNOMED Code(s): 788446045 Comment: Secondary to CHF exacerbation. No further work up at this time. (5) Type II diabetes mellitus Current Visit: Yes Status: Acute Comment: Blood sugars are under fair control. Continue current medication regimen. (6) DVT prophylaxis Current Visit: Yes Status: Acute Code(s): SRD3669 - SNOMED Code(s): 849067035 Comment: SQ heparin (7) DNR (do not resuscitate) Current Visit: Yes Status: Acute Status and Disposition: .
[2019-03-05] MEDS: Doxazosin TAB* 2 MG PO SCH (21:48)
[2019-03-06 08:21] VITALS: BP 143/45
[2019-03-06] MEDS: Pantoprazole TAB * 40 MG TAB PO SCH (08:39)
[2019-03-06] MEDS: Insulin LISPRO* 1 UNITS UNIT SUBCUT SCH (08:39)
[2019-03-06] MEDS: Metoprolol Succinate XL TAB* 100 MG PO SCH (08:40)
[2019-03-06] MEDS: Cholecalciferol TAB* 1000 UNITS PO SCH (08:40)
[2019-03-06] MEDS: Cephalexin CAP* 500 MG PO SCH (08:40)
[2019-03-06] MEDS: Docusate CAP* 100 MG PO SCH (08:40)
[2019-03-06] MEDS: Furosemide IV* 10 MG/ML 2 ML VIAL (20 MG) IV SLOW PU SCH (08:41)
[2019-03-06] MEDS: Heparin VIAL(*) 5000 UNITS/ML VIAL (FIVE THOUSAND) SUBCUT SCH (08:41)
--- NOTE | 2019-03-06 08:58 | DS ---
CC: [facility] By [facility] * DISCHARGE SUMMARY: DATE OF ADMISSION: 02/28/19 DATE OF DISCHARGE: 03/06/19 PRIMARY CARE PROVIDER: Brina Guadarrama DO at [facility]. PRINCIPAL DIAGNOSIS: Acute hypoxic respiratory failure secondary to decompensated systolic congestive heart failure. SECONDARY DIAGNOSES: 1. Type 2 diabetes. 2. Hypertension. 3. Diabetic neuropathy. 4. E. coli urinary tract infection. 5. Stage 4 chronic kidney disease. 6. Demand ischemia. DISCHARGE MEDICATIONS: 1. Calcitriol 0.25 mcg p.o. Saturday and . 2. Amlodipine 5 mg p.o. daily (reduced dose). 3. Tylenol 650 mg p.o. q.4 hours p.r.n. pain. 4. Tramadol 50 mg p.o. daily. 5. Omeprazole 20 mg p.o. daily. 6. Vitamin B12 1000 mcg p.o. daily. 7. Doxazosin 2 mg p.o. q.h.s. 8. Vitamin D 1000 units p.o. daily. 9. Linagliptin 5 mg p.o. daily. 10. Glimepiride 4 mg p.o. daily. 11. Ranitidine 150 mg p.o. b.i.d. 12. Metoprolol XL 100 mg p.o. daily. 13. Lidocaine patch applied topically to knee on for 12 hours, off for 12 hours. 14. DuoNeb 1 neb inhaled q.4 hours p.r.n. shortness of breath. 15. Lasix 40 mg p.o. twice daily (increased dose). 16. Keflex 500 mg p.o. b.i.d. x3 doses. 17. Tramadol 25 mg p.o. q.6 hours p.r.n. pain. HOSPITAL COURSE: Ms. Waterman is an 89-year-old female who is a long-term resident at [facility], who presented to the emergency room on because of shortness of breath, wheezing, and hypoxia. The patient has a known history of CHF, stage 4 chronic kidney disease, diabetes, and hypertension who at baseline receives Lasix 20 mg p.o. twice daily. She developed increasing shortness of breath and was given an extra dose of Lasix. She ultimately was sent to the emergency department due to having an O2 saturation between 70% and 80%. She initially required Vapotherm. She was given 40 mg of IV Lasix in the ER and chest x-ray revealed findings consistent with cardiogenic pulmonary edema. The patient was admitted to the intensive care unit initially but subsequently was able to be transferred out after her O2 requirements improved. The patient continued with aggressive IV diuresis throughout her hospitalization. Her weight estimates are not accurate, though she has had a negative balance over the last several days. Her creatinine has remained stable. At this point, she is felt to be stable to return back to [facility]. During the hospitalization, the patient received a palliative care consultation. Initially, it was felt that she may be a hospice candidate; however it is not clear at this time. A hospice referral should be made upon the patient's return to [facility]. This would be on the basis of systolic CHF and stage 4 chronic kidney disease. The patient did develop demand ischemia during her hospitalization with her troponin being mildly elevated up to a high of 0.12, though this was not checked any further. This was felt to be due to her systolic CHF exacerbation and hypoxia. Her BNP has been markedly elevated throughout her hospitalization. On the day of discharge, the patient states that her breathing is feeling comfortable. She is not requiring any further supplemental oxygen. The patient is being discharged on an increased dose of Lasix, which is 40 mg twice daily. Additionally, the patient will continue on her blood pressure medication regimen of doxazosin, metoprolol XL, and amlodipine though the amlodipine dose has been decreased. Her hydralazine has been discontinued as her blood pressure is not markedly elevated despite being off of this. Her diabetes regimen will remain the same from prior to admission. The patient was found to have a urinary tract infection with pansensitive E. coli. She will have 3 more doses of Keflex due. PHYSICAL EXAMINATION: On the day of discharge, the patient is awake, alert, and oriented, sitting up in bed. Vital signs are stable. She is afebrile. Cardiac exam reveals a normal S1, S2 with a regular rate and rhythm. There is no lower extremity edema. Breath sounds are slightly diminished at the bases, though otherwise clear. Abdomen is soft, nontender, and nondistended. FOLLOW CONCERNS: The patient is being discharged to [facility] today . ACTIVITY LEVEL: As tolerated. DIET: [id number], diabetic. CONDITION ON DISCHARGE: Stable. The patient should be initiated on PT and OT services upon return. TIME SPENT: Thirty-five minutes were spent discharging this patient. [id number]/[facility] #: [id number] [place]
[2019-03-06] MEDS: traMADol TAB* 50 MG PO SCH ×2 (09:21→10:41)
== END 2019-03-06 12:15 | DRG 291 ==
LOC: ED 12:36 → EDHOLD 14:55 → ICU 03-01 09:37 → MEDTELE 03-03 11:08
PROVIDERS: ADMIT Internal Medicine; ATTEND Hospitalist
PROC: 30233N1 Transfusion of Nonautologous Red Blood Cells into Peripheral Vein, Percutaneous Approach (ICD-10-PCS; principal; 2019-03-01)
DX: I13.0 Hypertensive heart and chronic kidney disease with heart failure and stage 1 through stage 4 chronic kidney disease, or unspecified chronic kidney disease (principal); I50.23 Acute on chronic systolic (congestive) heart failure; J96.21 Acute and chronic respiratory failure with hypoxia; N18.4 Chronic kidney disease, stage 4 (severe); N39.0 Urinary tract infection, site not specified; I24.8 Other forms of acute ischemic heart disease; E11.22 Type 2 diabetes mellitus with diabetic chronic kidney disease; M19.90 Unspecified osteoarthritis, unspecified site; E21.3 Hyperparathyroidism, unspecified; F41.9 Anxiety disorder, unspecified; F32.9 Major depressive disorder, single episode, unspecified; K21.9 Gastro-esophageal reflux disease without esophagitis; I27.20 Pulmonary hypertension, unspecified; M79.7 Fibromyalgia; D64.9 Anemia, unspecified; E55.9 Vitamin D deficiency, unspecified; E53.9 Vitamin B deficiency, unspecified; Z66 Do not resuscitate; R74.8 Abnormal levels of other serum enzymes; D49.7 Neoplasm of unspecified behavior of endocrine glands and other parts of nervous system; B96.20 Unspecified Escherichia coli [E. coli] as the cause of diseases classified elsewhere; N28.89 Other specified disorders of kidney and ureter; E11.40 Type 2 diabetes mellitus with diabetic neuropathy, unspecified; Z86.73 Personal history of transient ischemic attack (TIA), and cerebral infarction without residual deficits; Z85.3 Personal history of malignant neoplasm of breast; Z88.0 Allergy status to penicillin; Z88.7 Allergy status to serum and vaccine; Z88.8 Allergy status to other drugs, medicaments and biological substances; Z82.49 Family history of ischemic heart disease and other diseases of the circulatory system; Z98.49 Cataract extraction status, unspecified eye; Z82.3 Family history of stroke; Z79.84 Long term (current) use of oral hypoglycemic drugs
CPT/HCPCS: 36415; 71045; 71250; 76775; 80048; 80053; 81003; 81015; 82270; 82550; 82553; 82570; 82803; 83605; 83735; 83880; 84100; 84145; 84300; 84443; 84484; 84540; 85025; 85027; 85730; 86140; 86850; 86900; 86901; 86922; 87040; 87077; 87086; 87186; 87641; 87899; 93005; 93306; 94640; 99285; A9270-GY; C8929; G8978-GP-CL; G8979-GP-CJ; J0456; J0696; J1644; J1940; J2270; P9040

== ENCOUNTER 2019-06-26 05:30 | Inpatient (IN) | payer MEDICARE ==
[2019-06-26 05:59] LABS: ABS Basophils 0.1 10^3/ul (0-0.2); ABS Eosinophils 0.1 10^3/ul (0-0.6); ABS Lymphocytes 0.7 10^3/ul (1.0-4.8); ABS Monocytes 0.4 10^3/ul (0-0.8); ABS Neutrophils 5.3 10^3/ul (1.5-7.7); Eosinophil % 1.7 %; Hematocrit 24 % (35-47); Hemoglobin 8.4 g/dL (12.0-16.0); Mean Corpuscular HGB Conc 35 g/dL (31-36); Mean Corpuscular Hemoglobin 31 pg (27-31); Mean Corpuscular Volume 91 fL (80-97); Mean Platelet Volume 7.7 fL (7.4-10.4); Platelet Count 170 10^3/uL (150-450); Red Blood Count 2.68 10^6 /uL (3.70-4.87); Red Cell Distribution Width 15 % (10-15); White Blood Count 6.5 10^3/uL (3.5-10.8)
[2019-06-26] MEDS ORDERED: Lidocaine 2.5%/Prilocain 2.5%* 5 GM TUBE TOPICAL ONE (06:01)
[2019-06-26 06:04] LABS: INR 1.04 (0.82-1.09)
[2019-06-26 06:14] LABS: Albumin 3.6 g/dL (3.2-5.2); Albumin/Globulin Ratio 1.2 (1-3); BUN/Creatinine Ratio 21.4 (8-20); EGFR African American 14.7 (>60); EGFR Non-African American 12.2 (>60); Potassium 4.2 mmol/L (3.5-5.0); Total Bilirubin 0.3 mg/dL (0.2-1.0); Total Protein 6.6 g/dL (6.4-8.9)
[2019-06-26 06:17] LABS: Troponin I 0.03 ng/mL (<0.04)
--- NOTE | 2019-06-26 06:38 | ED ---
HPI Chest Pain - HPI Summary HPI Summary: This patient is an 89-year-old female brought in by EMS from [facility] with a chief complaint of midsternal chest pain. She states this was a sharp stabbing pain which awoke from sleep approximately 2 hours ago. She was given Tylenol while at [facility] and now endorses a dull ache to the area. Denies any shortness of breath. Denies any recent illness or fatigue. She does endorse left lower extremity edema with pain which was evaluated yesterday for a venous Doppler. She states she is unsure of the results. PCP is Dr. Guadarrama. Patient is currently DNR/DNR wanting no interventions. This was discussed with the patient this morning and her MOLST remains same. Currently taking lasix 40mg BID, metroprolol. Denies chest heaviness. Current pain 1/10 down from 8/10 this morning. She states she has had these types of chest pains in the past. Also c/o large abscess to the L axillary area. Denies f/s/c. - History of Current Complaint Chief Complaint: EDChestPainROMI Time Seen by Provider: 06/26/19 05:51 Hx Obtained From: Patient Onset/Duration: Started Hours Ago Time of Onset: 04:30 Timing: Constant Initial Severity: Moderate Current Severity: Mild Pain Intensity: 7 Pain Scale Used: 0-10 Numeric Chest Pain Location: Left Anterior Chest Pain Radiates: No - Was Chest Pain Radiates To:: Arm - left axillary area and L arm Aggravating Factor(s): Nothing Alleviating Factor(s): Nothing Associated Signs and Symptoms: Positive: Negative. Negative: Recent Stress, Headaches, Lightheadedness, Diaphoresis, Nasal Congestion, Edema - Risk Factors Pulmonary Embolism Risk Factors: Negative - Additional Pertinent History Primary Care Physician: MARISSA - Allergy/Home Medications Allergies/Adverse Reactions: Allergies Allergy/AdvReac Type Severity Reaction Status Date / Time exenatide [From Lalo] Allergy Itching Verified 06/26/19 05:47 Influenza Virus Vaccines Allergy Itching Verified 06/26/19 05:47 nadolol Allergy Itching Verified 06/26/19 05:47 naproxen Allergy Swelling Verified 06/26/19 05:47 Penicillins Allergy Hives Verified 06/26/19 05:47 Myvsohi-Uco-Rxt Reductase Allergy Muscle Ache Verified 06/26/19 05:47 Inhibitor Home Medications: Home Medications Acetaminophen 975 mg PO TID 06/26/19 [History Confirmed 06/26/19] Calcium Carbonate CHEW TAB* [Tums*] 500 mg PO Q4H PRN 06/26/19 [History Confirmed 06/26/19] Docusate Sodium [Colace] 100 mg PO DAILY 06/26/19 [History Confirmed 06/26/19] Glimepiride 1 mg PO DAILY 06/26/19 [History Confirmed 06/26/19] Hydralazine HCl 50 mg PO TID 06/26/19 [History Confirmed 06/26/19] Lidocaine [Aspercreme Lidocaine Max] 4 % EX DAILY 06/26/19 [History Confirmed ] Loperamide CAP* [Imodium CAP*] 2 mg PO DAILY PRN 06/26/19 [History Confirmed 01/13] Ondansetron HCl [Zofran 4 MG TAB] 4 mg PO Q6H PRN 06/26/19 [History Confirmed ] Polyethylene Glycol 3350 [Miralax] 1 packet PO DAILY PRN 06/26/19 [History Confirmed 06/26/19] traMADol TAB* [Ultram*] 75 mg PO BEDTIME 06/26/19 [History Confirmed 06/26/19] PMH/Surg Hx/FS Hx/Imm Hx Previously Healthy: No Endocrine/Hematology History: Reports: Hx Diabetes, Hx Anemia, Other Endocrine/ Hematological Disorders - hyperparathyroidism Cardiovascular History: Reports: Hx Congestive Heart Failure, Hx Hypercholesterolemia, Hx Hypertension Denies: Hx Pacemaker/ICD Respiratory History: Reports: Hx Pulmonary Edema Denies: Hx Asthma, Hx Chronic Obstructive Pulmonary Disease (COPD) History: Reports: Hx Chronic Renal Failure, Hx Renal Disease - Stage IV renal disease, Other Problems/Disorders - Stage IV renal disease Musculoskeletal History: Reports: Hx Arthritis, Hx Back Problems Sensory History: Reports: Hx Contacts or Glasses Denies: Hx Hearing Aid Opthamlomology History: Reports: Hx Contacts or Glasses Neurological History: Reports: Hx Transient Ischemic Attacks (TIA) Psychiatric History: Reports: Hx Anxiety, Hx Depression Denies: Hx Panic Disorder - Cancer History Cancer Type, 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 LUMPECTOMY LEFT BREAST. Cataract removal - Immunization History Hx Pertussis Vaccination: No Immunizations Up to Date: Yes Infectious Disease History: No Infectious Disease History: Denies: Traveled Outside the [place] in Last 30 Days - Family History Known Family History: Positive: Hypertension, Other - Cancer, CVA Family History: mother CA; father accident - Social History Occupation: Unemployed Lives: At [facility] Alcohol Use: None Hx Substance Use: No Substance Use Type: Reports: None Smoking Status (MU): Never Smoked Tobacco Have You Smoked in the Last Year: No Review of Systems Negative: Fever, Chills, Fatigue, Skin Diaphoresis Positive: Chest Pain. Negative: Palpitations Negative: Shortness Of Breath, Cough Negative: Abdominal Pain, Vomiting, Diarrhea, Nausea Genitourinary: Negative Positive: no symptoms reported, see HPI Negative: Arthralgia, Myalgia Skin: Negative Neurological: Negative All Other Systems Reviewed And Are Negative: Yes Physical Exam Triage Information Reviewed: Yes Vital Signs On Initial Exam: Initial Vitals Pulse Pulse Ox 82 93 06/26/19 05:36 06/26/19 05:36 Vital Signs Reviewed: Yes Appearance: Positive: Well-Appearing, Well-Nourished Skin: Positive: Skin Color Reflects Adequate Perfusion, Other - large abscess to the L axillary area Head/Face: Positive: Normal Head/Face Inspection Eyes: Positive: EOMI, Conjunctiva Clear Neck: Positive: Supple, No Lymphadenopathy Respiratory/Lung Sounds: Positive: Clear to Auscultation, Breath Sounds Present Cardiovascular: Positive: RRR, Pulses are Symmetrical in both Upper and Lower Extremities Musculoskeletal: Positive: Normal, Strength/ROM Intact Neurological: Positive: Sensory/Motor Intact, Alert, Oriented to Person Place, Time, Speech Normal Psychiatric: Positive: Affect/Mood Appropriate AVPU Assessment: Alert Procedures - Incision and Drainage L axilla Site: L axilla Anesthesia: Topical, Local, Lidocaine Instrument(s): Scalpel Packing: Gauze - iodoform 1/2inch - 8 inches with 1 inch tail. Diagnostics - Vital Signs Vital Signs Temp Pulse Resp BP Pulse Ox 06/26/19 06:10 81 16 129/75 95 06/26/19 06:00 13 06/26/19 05:41 98.8 F 81 16 136/58 93 06/26/19 05:40 83 20 95 06/26/19 05:36 82 93 - Laboratory Lab Results: Lab Results 06/26/19 06/26/19 06/26/19 Range/Units 05:51 05:51 05:51 WBC 6.5 (3.5-10.8) 10^3/uL RBC 2.68 L (3.70-4.87) 10^6 /uL Hgb 8.4 L (12.0-16.0) g/dL Hct 24 L (35-47) % MCV 91 (80-97) fL MCH 31 (27-31) pg MCHC 35 (31-36) g/dL RDW 15 (10-15) % Plt Count 170 (150-450) 10^3/uL MPV 7.7 (7.4-10.4) fL Neut % (Auto) 81.2 % Lymph % (Auto) 10.0 % Coke % (Auto) 6.1 % Eos % (Auto) 1.7 % Baso % (Auto) 1.0 % Absolute Neuts (auto) 5.3 (1.5-7.7) 10^3/ul Absolute Lymphs (auto) 0.7 L (1.0-4.8) 10^3/ul Absolute Monos (auto) 0.4 (0-0.8) 10^3/ul Absolute Eos (auto) 0.1 (0-0.6) 10^3/ul Absolute Basos (auto) 0.1 (0-0.2) 10^3/ul Absolute Nucleated RBC 0.0 10^3/ul Nucleated RBC % 0.0 INR (Anticoag Therapy) 1.04 (0.82-1.09) Sodium 137 (135-145) mmol/L Potassium 4.2 (3.5-5.0) mmol/L Chloride 106 (101-111) mmol/L Carbon Dioxide 22 (22-32) mmol/L Anion Gap 9 (2-11) mmol/L BUN 76 H (6-24) mg/dL Creatinine 3.55 H (0.51-0.95) mg/dL Est GFR ( Amer) 14.7 (>60) Est GFR (Non-Af Amer) 12.2 (>60) BUN/Creatinine Ratio 21.4 H (8-20) Glucose 88 (70-100) mg/dL Calcium 10.0 (8.6-10.3) mg/dL Total Bilirubin 0.30 (0.2-1.0) mg/dL AST 9 L (13-39) U/L ALT 7 (7-52) U/L Alkaline Phosphatase 76 (34-104) U/L Troponin I 0.03 (<0.04) ng/mL Total Protein 6.6 (6.4-8.9) g/dL Albumin 3.6 (3.2-5.2) g/dL Globulin 3.0 (2-4) g/dL Albumin/Globulin Ratio 1.2 (1-3) Result Diagrams: 06/26/19 05:51 06/26/19 05:51 Lab Statement: Any lab studies that have been ordered have been reviewed, and results considered in the medical decision making process. Chest Pain Course/Dx - Course Course Of Treatment: L axillary abscess measuring 5.0cm in length and 2.5cm in depth above the level of skin. I and D procedure: EMLA cream applied and awaited 30 minutes. 2ml Lidocaine without epi used as local ansesthetic with good effect. Incision of 0.6 cm in length of the most superior portion of the abscess. Copious amounts of purulent drainage, approximate 10 mL. Packing applied - approximately 6-8 cm of 1/2 inch wide iodoform/no tight packing. Patient tolerated procedure well. Discussed case with Dr. Guadarrama who requested 2nd troponing. First troponin 0.03. Second troponin 0.80 and confirmed from lab with a 0.83 reading. Discussed case with Dr. Brown. Patient confirmed she does not wish to be on hospice care at this time and would like further workup/ evaluation of her chest pain. Dr. brown to admit patient for elevated trops/ chest pain. On re-evaluation, patient is symptom free. - Chest Pain Differential Diagnosis/HQI/PQRI: Acute MO, Angina - Diagnoses Provider Diagnoses: Abscess, Elevated troponin, Chest pain Discharge - Sign-Out/Discharge Documenting (check all that apply): Patient Departure All imaging exams completed and their final reports reviewed: Yes Patient Received Moderate/Deep Sedation with Procedure: No - Discharge Plan Condition: Fair Disposition: ADMITTED TO [facility] - Billing Disposition and Condition Condition: FAIR Disposition: Admitted to [facility]
[2019-06-26] MEDS ORDERED: Acetaminophen TAB* 325 MG PO PRN (12:14)
[2019-06-26] MEDS ORDERED: Al Hydrox/Mg Hydrox/Simet LIQ* 30 ML UDC PO PRN (12:14)
[2019-06-26] MEDS ORDERED: oxyCODONE/Acetamin 5/325 MG* TAB PO PRN (12:14)
[2019-06-26] MEDS ORDERED: Albuterol/Ipratropium NEB.SOL* Albuterol 2.5 MG/Ipratropium 0.5 MG 3 ML INH PRN (12:18)
[2019-06-26] MEDS ORDERED: Calcium Carbonate CHEW TAB* 500 MG (TUMS) PO PRN (12:18)
[2019-06-26] MEDS ORDERED: Ondansetron TAB* 4 MG PO PRN (12:18)
[2019-06-26] MEDS ORDERED: Loperamide CAP* 2 MG PO PRN (12:18)
[2019-06-26 12:24] LABS: Troponin I 3.47 ng/mL (<0.04)
[2019-06-26] MEDS ORDERED: traMADol TAB* 50 MG PO PRN (12:24)
[2019-06-26] MEDS ORDERED: Cephalexin CAP* 500 MG PO ONE (12:29)
[2019-06-26] MEDS ORDERED: Aspirin 81 mg CHEW TAB* 81 MG TAB.CHEW PO ONE (12:45)
[2019-06-26] MEDS ORDERED: Perflutren Lipid Microsphere* 3 ML VIAL ONE (12:57)
[2019-06-26] MEDS ORDERED: Dextrose 50% VIAL 50 ml IV PUSH PRN (13:10)
[2019-06-26] MEDS: Heparin DRIP 25,000 UNITS(*) 25,000 UNITS/500 ML BAG IV SCH (13:37)
[2019-06-26] MEDS: Heparin VIAL(*) 5000 UNITS/ML VIAL (FIVE THOUSAND) IV SCH (13:41)
[2019-06-26 13:45] LABS: ABS Basophils 0.1 10^3/ul (0-0.2); ABS Eosinophils 0.1 10^3/ul (0-0.6); ABS Lymphocytes 0.9 10^3/ul (1.0-4.8); ABS Monocytes 0.4 10^3/ul (0-0.8); ABS Neutrophils 5.4 10^3/ul (1.5-7.7); Eosinophil % 0.8 %; Hematocrit 23 % (35-47); Lymphocyte % 13.3 %; Mean Corpuscular HGB Conc 35 g/dL (31-36); Mean Corpuscular Hemoglobin 32 pg (27-31); Mean Corpuscular Volume 91 fL (80-97); Platelet Count 170 10^3/uL (150-450); Red Blood Count 2.52 10^6 /uL (3.70-4.87); Red Cell Distribution Width 15 % (10-15); White Blood Count 6.8 10^3/uL (3.5-10.8)
[2019-06-26] MEDS: hydrALAZINE TAB* 25 MG PO SCH ×2 (13:53→21:11)
[2019-06-26] MEDS: Acetaminophen TAB* 325 MG PO SCH ×2 (13:53→21:11)
[2019-06-26] MEDS ORDERED: Heparin VIAL(*) 5000 UNITS/ML VIAL (FIVE THOUSAND) SUBCUT SCH (14:00)
[2019-06-26 14:07] LABS: EGFR African American 14.9 (>60); EGFR Non-African American 12.3 (>60)
--- NOTE | 2019-06-26 14:14 | HP ---
CC: Dr. Guadarrama; Dr. Bower; Dr. Johnson * HISTORY AND PHYSICAL: DATE OF ADMISSION: 06/26/19 PRIMARY CARE PROVIDER: Dr. Guadarrama. SMALL ENGINE TRAINER: Dr. Johnson. CHIEF COMPLAINT: Chest pain. 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 The pain woke her up today in the morning from sleep. She is unable to tell me how long it lasted, but she does not have it anymore. The patient was noted to have axillary abscess in the left axilla that was I and D-ed in the ED and at least 10 mL of purulent fluid was obtained for analysis. The patient had been on clindamycin for history of MRSA urinary tract infection. She had been afebrile and in her usual state of health. She resides at [facility] and she stated that she is doing rehab, walking with a walker and assist. Currently, she is comfortable. Of note, please also note that this patient was a hospice candidate in February 2019, and she and her daughter were interested in hospice, but unfortunately, her hospice residence did not have a spot for her available and at that point, the patient was transferred to [facility]. At this point, during my evaluation, the patient is comfortable and denies any pain. She does request to be further evaluated for her cardiac issues since her troponins came back to be positive, the second troponin is 0.8. PAST MEDICAL HISTORY: 1. History of anxiety and depression. 2. 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 3. History of 5.2 cm right renal mass, likely renal cell carcinoma documented in February 2019, for which the patient refused to have further evaluation. 4. History of chronic kidney disease stage 3 to 4. The patient refused to have dialysis "ever." 5. History of diabetes type 2. 6. Gastroesophageal reflux disease. 7. History of anemia of chronic disease. 8. Hypertension. 9. Pulmonary hypertension. 10. History of hyperparathyroidism. 11. Fibromyalgia. 12. History of chronic lower extremity edema. 13. History of constipation. 14. Vitamin B12 deficiency. 15. Vitamin D deficiency. 16. History of breast cancer. 17. History of degenerative spine disease. 18. History of TIA/CVA. MEDICATIONS: At [facility] include: 1. Zofran 4 mg every 6 hours p.r.n. 2. MiraLAX 1 packet daily p.r.n. 3. Imodium 2 mg daily p.r.n. 4. DuoNeb every 4 hours p.r.n. 5. Tums on a p.r.n. basis. 6. Acetaminophen 975 mg scheduled 3 times a day. 7. Furosemide 40 mg b.i.d. 8. Vitamin D3 at 1000 units every other day. 9. Ultram 75 mg at bedtime. 10. Tradjenta 5 mg daily. 11. Ranitidine 150 mg daily. 12. Omeprazole 20 mg daily. 13. Metoprolol succinate 100 mg daily. 14. Cardura 2 mg at bedtime. 15. Colace 100 mg daily. 16. Vitamin B12 at 1000 mcg daily. 17. Lidocaine cream apply to affected area daily. 18. Calcitriol 0.25 mcg on Mondays and . 19. Lamotrigine 5 mg daily. 20. Clindamycin 300 mg every 6 hours for history of MRSA UTI. ALLERGIES: Include BYETTA, INFLUENZA, NADOLOL, NAPROXEN, PENICILLIN, and STATINS. FAMILY HISTORY: Reviewed and noncontributory. SOCIAL HISTORY: The patient denies tobacco or drug use. She lives at [facility]. She is . She is DNR/DNI. Her healthcare proxy is her daughter, Kaitlynn Grijalva, phone number is [phone]. REVIEW OF SYSTEMS: Please see history of present illness. In addition to the above mentioned, the patient had an I and D of her left axillary abscess performed in the emergency department. The patient stated that she has had an abscess in her axillary region for quite some time, but for the past couple of days it has been bothering her to the point that she was sent to wound care center for evaluation of it tomorrow. Unfortunately, today, with the chest pain radiating to the left axillary region , the pain was severe in the left axilla and the abscess was I and D- ed. The patient denies any fevers. The patient had chest pain earlier on as mentioned above. Unfortunately, she cannot describe further how long it lasted. She denies any shortness of breath or fevers. The patient also stated that she has bilateral lower extremity edema, left more than right chronically, but that was evaluated recently with a Doppler test performed at [facility] and as per patient was negative for DVT. All the remaining 12 systems were reviewed with the patient, who is a poor historian, but were otherwise negative. PHYSICAL EXAMINATION GENERAL: The patient is a very pleasant 89-year-old female who is in no acute distress; alert, awake, oriented x3; poor historian. VITAL SIGNS: Blood pressure of 158/73, heart rate of 78 and regular, respiratory rate 13, oxygen saturation 99% on room air, temperature of 98.9. HEENT: Head: Atraumatic, normocephalic. Eyes: Pupils are equal and reactive to light and accommodation. Oropharynx is clear. Mucosa moist. NECK: Supple. No JVD. No bruits bilaterally. RESPIRATORY: Clear to auscultation bilaterally. CARDIOVASCULAR: Regular rate and rhythm with 2/6 systolic ejection murmur on auscultation of the apex. ABDOMEN: Soft, nontender. Bowel sounds present in all 4 quadrants. EXTREMITIES: There is bilateral pedal edema, left more than right. There is no clubbing, no cyanosis. Pulses are +2 bilaterally. PSYCHIATRIC EVALUATION: Pleasant and cooperative with evaluation, rather poor historian, but no evidence of anxiety or depression. SKIN: On evaluation of the skin, no ecchymotic areas or rashes noted. DIAGNOSTIC STUDIES/LAB DATA: Laboratory Data: Sodium of 137, potassium 4.2, chloride 106, carbon dioxide 22, BUN 76, creatinine 3.55. Liver function tests unremarkable. Troponin initially 0.03, second troponin is 0.8. White blood cell count of 6.5, hemoglobin 8.4, hematocrit of 24, and platelets of 170. INR 1.04. Portable chest x-ray, impression: "Findings suggestive of mild congestive heart failure." The patient's EKG showed normal sinus rhythm with a heart rate of 79 beats per minute with nonspecific intraventricular conduction delay. That was the most recent EKG. An EKG obtained a couple of hours earlier showed ST depressions in lead V4 and V6 that has now resolved. Microbiology testing from the abscess of the left axillary region is MRSA negative and Staph aureus negative. ASSESSMENT AND PLAN: 1. The patient presented with chest pain and has elevated troponin. At this point, I have a verbal report that her third troponin is above 3, but it has not been reported yet in the electronic medical records. At this point, the patient is going to be placed on aspirin, treated with heparin drip as well as transthoracic echocardiogram is going to be performed and Dr. Bower is going to see the patient for consultation. Currently, the patient is asymptomatic from a cardiac standpoint, although she did have chest pain when she came in to the ED. She is comfortable. The patient is aware of her coexisting medical comorbidities and she wants to have a full cardiac evaluation. She is aware that she is not a cardiac catheterization candidate and she confirms that she would not want to go on dialysis if she needed to. The patient also is aware that if she had a cardiac catheterization, the likelihood of her needing dialysis would be significant. 2. For left axillary abscess, she is going to be placed on cefazolin at a renal dose. I will ask nursing to change packing on a daily basis. 3. The patient has history of cardiomyopathy with EF of 30% and chronic systolic congestive heart failure. The patient is going to be placed on daily weights and Is and Os. A transthoracic echocardiogram is going to be obtained. I will continue the patient's Lasix at home dose. She appears euvolemic today. 4. In regards to the patient's chronic kidney disease stage 4, it is with creatinine more or less unchanged from prior. 5. The patient has history of over 5 cm right renal mass that is likely renal cell carcinoma, for which she refused further evaluation or treatment. 6. For her diabetes, the patient's diabetic medications are going to be held and she is going to be placed on insulin sliding scale. 7. The patient's code status was discussed with the patient and the patient's daughter, who is present by the bedside and DNR and DNI was requested and carried over with her MOLST form that was already signed in the past. 8. For DVT prophylaxis, the patient is going to be placed on heparin drip as mentioned above. TIME SPENT: Approximately 85 minutes were spent on admission of this patient, more than half that time was spent [id number] with the patient during the interview and physical exam. [id number]/[facility] #: [id number] FRACISCO
--- NOTE | 2019-06-26 15:40 | ECHO ---
*[facility]* [place] [address] Fax #: [phone] Transthoracic Echocardiogram Patient: Paulette Waterman : 1930 Study Date: 06/26/2019 Age: 89 Gender: F HR: Height: 64 in /162.6 cm BSA: 1.98 m^2 Weight: 204.6 lb /93 kg BMI: 35.2 kg/m^2 *Equipment Operator: * Ashley Gaytan [facility] *Referring Physician: * Natalia Reyes *Reading Physician: * Clyde Bower MD Indications: Abnormal EKG. Congestive Heart Failure. History: Risk factors: Hypertension. Prior TIA,anemia. Diabetes mellitus. Dyslipidemia. Conclusions Summary: - Left ventricle: The cavity size is normal. Wall thickness is normal. Systolic function is moderately reduced. The estimated ejection fraction is 30-35%. - Right ventricle: The cavity size is normal. Systolic function is mildly reduced. - Mitral valve: There is mild to moderate regurgitation. - Pulmonary arteries: Systolic pressure is moderately increased. Recommendations: Compared to prior study from 02/2019, no significant changes noted. Study data: Transthoracic echocardiogram. Procedure: Transthoracic echocardiography was performed. Image quality was suboptimal. The study was technically limited due to poor acoustic window availability. Intravenous Definity , 2 mlswas administered. Image enhancement administered by Complete 2D, spectral Doppler, and color flow Doppler. Location: Emergency department. Patient status: Inpatient. Rhythm: Normal sinus rhythm. Findings Left ventricle: The cavity size is normal. Wall thickness is normal. Systolic function is moderately reduced. The estimated ejection fraction is 30-35%. Regional wall motion abnormalities: Severe hypokinesis of the mid inferolateral myocardium; moderate hypokinesis of the mid anteroseptal myocardium; mild hypokinesis of the entire anterior, apical inferior, mid anterolateral, apical septal, apical lateral, and apical myocardium. Left ventricular diastolic function parameters are normal for the patient's age. Right ventricle: Poorly visualized. The cavity size is normal. Systolic function is mildly reduced. Ventricular septum: Well visualized. Left atrium: Well visualized. The atrium is at the upper limits of normal in size. Right atrium: Well visualized. The atrium is at the upper limits of normal in size. Atrial septum: Well visualized. Mitral valve: Well visualized. The leaflets are mildly thickened. There is no evidence of stenosis. There is mild to moderate regurgitation. Aortic valve: Well visualized. The valve is trileaflet. The leaflets are normal thickness. There is no evidence of stenosis. There is no significant regurgitation. Tricuspid valve: Well visualized. The leaflets are normal thickness. There is no evidence of stenosis. There is mild regurgitation. Pulmonic valve: Well visualized. The leaflets are normal thickness. There is no evidence of stenosis. There is no significant regurgitation. Aorta: The aorta is well visualized and normal size. The aortic arch appears normal. Pericardium: There is no pericardial effusion. No evidence of pleural fluid accumulation. Pulmonary arteries: Poorly visualized. Systolic pressure is moderately increased. Systemic veins: Inferior vena cava: The vessel is normal in size. There is (>= 50%) respiratory change in the IVC dimension. Pulmonary veins: Visualization of the pulmonary venous anatomy is incomplete, but a significant abnormality is unlikely. Measurements Left ventricle Value Ref Aortic valve Value Ref MARCELA, LAX 4.5 cm 3.8 - Peak v, S 1.56 m/sec ----- 5.2 VTI, S 34.1 cm ----- ESD, LAX (H) 3.8 cm 2.2 - Mean grad, S 5.0 mm Hg ----- 3.5 Peak grad, S 10.0 mm Hg ----- FS, LAX (L) 14 % 45 LVOT/AV, VTI ratio 0.58 ----- PW, ED, LAX 0.8 cm 0.6 - HILLARY, VTI 1.32 cm^2 ----- 0.9 HILLARY, Vmax 1.39 cm^2 ----- FS (L) 14 % 45 Mid-wall FS 8 % -------- Mitral valve Value Ref PW, ED 0.8 cm 0.6 - Peak E 1.11 m/sec ----- 0.9 Peak A 1.27 m/sec ----- PW/ID, ED 0.18 -------- Decel time 137 ms ----- E', lat idalmis, TDI (L) 6.4 cm/sec >=10.0 Peak grad, D 4.9 mm Hg - ---- E/e', lat idalmis, TDI 17 -------- Peak E/A ratio 0.9 ---- - E', med idalmis, TDI (L) 5.6 cm/sec >=7.0 ERO, PISA 0.14 cm^2 - ---- E/e', med idalmis, TDI 20 -------- MR vol, PISA 28 ml ---- - E', avg, TDI 6.0 cm/sec -------- MR fraction, PISA 38 % ---- - E/e', avg, TDI (H) 19 <=14 Pulmonic valve Value Ref LVOT Value Ref Peak v, S 1.05 m/sec ----- Diam, S 1.70 cm -------- Peak grad, S 4.0 mm Hg ----- Area 2.3 cm^2 -------- Peak wanda, S 0.95 m/sec -------- Tricuspid valve Value Ref VTI, S 19.8 cm -------- TR peak v (H) 3.49 m/sec <=2.8 Mean grad, S 2 mm Hg -------- Peak RV-RA grad, S 49 mm Hg ----- SV 45 ml -------- Max TR wanda 3.49 m/sec ----- SV/bsa 23 ml/m^2 -------- Aortic root Value Ref Ventricular septum Value Ref Root diam 2.6 cm <4.1 IVS, ED 0.9 cm 0.6 - 0.9 Ascending aorta Value Ref AAo AP diam, S 2.4 cm ----- Right ventricle Value Ref AAo AP diam/bsa, S 1.2 cm/m^2 ----- MARCELA, LAX 4.0 cm -------- MARCELA minor ax, A4C 3.4 cm 1.9 - Aortic arch Value Ref mid 3.5 Arch diam 1.6 cm ----- Left atrium Value Ref Decending aorta Value Ref ML dim, A4C 4.7 cm -------- Pillo peak wanda 0.63 m/sec ----- SI dim, A4C 5.5 cm -------- Vol/bsa, ES, 1-p 29 ml/m^2 11 - 40 Inferior vena cava Value Ref A4C Diam 1.9 cm ----- Vol/bsa, ES, A/L 29 ml/m^2 16 - 34 Right atrium Value Ref SI dim, ES 5.2 cm 3.4 - 5.3 ML dim, ES, A4C 3.6 cm 2.6 - 4.4 SI dim, ES, A4C 5.2 cm 3.4 - 5.3 SI dim/bsa, ES, A4C 2.6 cm/m^2 1.9 - 3.1 Estimated RAP 3 mm Hg -------- Legend: (L) and (H) daria values outside specified reference range. Prepared and electronically signed by Clyde Bower MD 06/26/2019 15:39
[2019-06-26] MEDS ORDERED: Clopidogrel TAB* 300 MG PO ONE (16:32)
--- NOTE | 2019-06-26 16:35 | CONSULT ---
Subjective Date of Service: 06/26/19 Interval History: Admission Date: 06/26/19 Consult date 06/26/2019 PCP: Dr. Kylie Guadarrama at [facility] Provider: Hospitalist service CC: Chest pain Reason for consult: NSTEMI HISTORY OF PRESENT ILLNESS: Paulette Waterman is an 89-year-old woman with a history as below and multiple comorbidities previously accepted to hospice. She resides at [facility] and does do rehab with a walker and assistance. She presented with substernal chest discomfort. She has had this discomfort in the past. She is currently entirely pain free. She ruled in for ACS. She also had left axillary pain that seems to be a separate complaint and a wound was I and D'd. There has been no change in her breathing, sustained palpitations or syncope. PAST MEDICAL HISTORY: 1. History of anxiety and depression. 2. Known systolic dysfunction LVEF of 30% to 35% documented in February 2019 3. History of 5.2 cm right renal mass, likely renal cell carcinoma documented in February 2019, for which the patient declined to have further evaluation. 4. History of advanced chronic kidney disease, patient would not want dialysis 5. History of diabetes type 2. 6. Gastroesophageal reflux disease. 7. History of anemia of chronic disease. 8. Hypertension. 9. History of hyperparathyroidism. 10. History of breast cancer. 11. History of TIA/CVA. ALLERGIES: Include BYETTA, INFLUENZA, NADOLOL, NAPROXEN, PENICILLIN, and STATINS. FAMILY HISTORY: Reviewed and noncontributory. SOCIAL HISTORY: The patient denies tobacco or drug use. She lives at [facility]. She is . She is DNR/DNI. Her healthcare proxy is her daughter, Kaitlynn Grijalva, phone number is [phone]. Medications Active Medications: Acetaminophen (Tylenol Tab*) 975 mg PO TID [facility] Last Admin: 06/26/19 13:53 Dose: 975 mg Al Hydrox/Mg Hydrox/Simethicone (Maalox Plus*) 30 ml PO Q6H PRN PRN Reason: INDIGESTION Albuterol/Ipratropium (Duoneb (Albuterol 2.5 Mg/Ipratropium 0.5 Mg)) 1 neb INH Q4HR PRN PRN Reason: WHEEZING Amlodipine Besylate (Norvasc Tab*) 5 mg PO DAILY [facility] Aspirin (Aspirin 81 Mg Chew Tab*) 81 mg PO DAILY [facility] Calcitriol (Rocaltrol Cap*) 0.25 mcg PO MoTh@0900 [facility] Calcium Carbonate (Tums*) 500 mg PO Q4H PRN PRN Reason: INDIGESTION Cholecalciferol (Vitamin D Tab*) 1,000 units PO EVERY OTHER DAY [facility] Clopidogrel Bisulfate (Plavix Tab*) 600 mg PO ONCE ONE Stop: 06/26/19 16:33 Clopidogrel Bisulfate (Plavix Tab*) 75 mg PO DAILY [facility] Dextrose (Dextrose 50% Vial 50 Ml*) 25 ml IV PUSH .FOR FS < 60 - SS PRN PRN Reason: FS < 60 Docusate Sodium (Colace Cap*) 100 mg PO BID [facility] Doxazosin Mesylate (Cardura Tab*) 2 mg PO BEDTIME [facility] Furosemide (Lasix Tab*) 40 mg PO BID [facility] Heparin Sodium (Porcine) (Heparin Vial(*)) 0 units IV .PER PROTOCOL [facility] Last Admin: 06/26/19 13:41 Dose: 4,000 units Hydralazine HCl (Apresoline Tab*) 50 mg PO TID [facility] Last Admin: 06/26/19 13:53 Dose: 50 mg Heparin Sodium/Dextrose (Heparin Drip 25,000 Units(*)) 25,000 units in 500 mls @ 0 mls/hr IV PER RATE [facility]; Protocol Last Admin: 06/26/19 13:37 Dose: 17 mls/hr Cefazolin Sodium 1 gm/ Sodium (Chloride) 50 mls @ 200 mls/hr IVPB Q12H [facility] Insulin Human Lispro (Humalog*) 0 units SUBCUT ACHS [facility]; Protocol Loperamide HCl (Imodium Cap*) 2 mg PO DAILY PRN PRN Reason: DIARRHEA Metoprolol Succinate (Toprol Xl Tab*) 100 mg PO DAILY [facility] Ondansetron HCl (Zofran Tab*) 4 mg PO Q6H PRN PRN Reason: NAUSEA Pantoprazole Sodium (Protonix Tab*) 40 mg PO DAILY [facility] Polyethylene Glycol/Electrolytes (Miralax*) 17 gm PO DAILY PRN PRN Reason: CONSTIPATION Senna (Senokot Tab*) 1 tab PO BID [facility] Tramadol HCl (Ultram*) 75 mg PO BEDTIME [facility] Tramadol HCl (Ultram*) 50 mg PO Q8H PRN PRN Reason: PAIN - MODERATE Home Medications: Linagliptin (NF) [Tradjenta (NF)] 5 mg PO DAILY 02/01/16 [History Confirmed 01/13] Calcitriol CAP* [Rocaltrol CAP*] 0.25 mcg PO SEE INSTRUCTIONS 07/07/18 [ History Confirmed 06/26/19] Cholecalciferol TAB* [Vitamin D TAB*] 1,000 unit PO EVERY OTHER DAY 07/07/18 [ History Confirmed 06/26/19] Doxazosin TAB* [Cardura TAB*] 2 mg PO BEDTIME 07/07/18 [History Confirmed ] Metoprolol Succinate XL TAB* [Toprol XL TAB*] 100 mg PO DAILY 07/07/18 [History Confirmed 06/26/19] Ranitidine TAB (NF) [Zantac TAB (NF)] 150 mg PO QPM 07/07/18 [History Confirmed 06/26/19] Cyanocobalamin (Vitamin B-12) [B-12] 1,000 mcg PO DAILY 02/28/19 [History Confirmed 06/26/19] Ipratropium/Albuterol Sulfate [Iprat-Albut 0.5-3(2.5) mg/3 ml] 3 ml INH Q4HR PRN 02/28/19 [History Confirmed 06/26/19] Omeprazole 20 mg pe PO DAILY 02/28/19 [History Confirmed 06/26/19] Furosemide TAB* [Lasix TAB*] 40 mg PO BID #0 03/06/19 [Rx Confirmed 06/26/19] amLODIPine TAB* [Norvasc 5 mg TAB*] 5 mg PO DAILY #0 03/06/19 [Rx Confirmed 01/13] Acetaminophen 975 mg PO TID 06/26/19 [History Confirmed 06/26/19] Calcium Carbonate CHEW TAB* [Tums*] 500 mg PO Q4H PRN 06/26/19 [History Confirmed 06/26/19] Clindamycin Cap(NF) [Clindamycin Cap 300 mg Cap(NF)] 300 mg PO Q6H #28 cap 06/26 [Rx] Docusate Sodium [Colace] 100 mg PO DAILY 06/26/19 [History Confirmed 06/26/19] Glimepiride 1 mg PO DAILY 06/26/19 [History Confirmed 06/26/19] Hydralazine HCl 50 mg PO TID 06/26/19 [History Confirmed 06/26/19] Lidocaine [Aspercreme Lidocaine Max] 4 % EX DAILY 06/26/19 [History Confirmed ] Loperamide CAP* [Imodium CAP*] 2 mg PO DAILY PRN 06/26/19 [History Confirmed 01/13] Ondansetron HCl [Zofran 4 MG TAB] 4 mg PO Q6H PRN 06/26/19 [History Confirmed ] Polyethylene Glycol 3350 [Miralax] 1 packet PO DAILY PRN 06/26/19 [History Confirmed 06/26/19] traMADol TAB* [Ultram*] 75 mg PO BEDTIME 06/26/19 [History Confirmed 06/26/19] Review of Systems - Measurements Intake and Output: Intake and Output Last 24 Hours 06/24/19 06/25/19 06/26/19 06/27/19 06:59 06:59 06:59 06:59 Weight 205 lb - Review of Systems Constitutional Symptoms: Positive: Weakness, Fatigue Dermatology: Negative: Rash, Skin Lesions HEENT: Negative: Change in Hearing, Vertigo Eyes: Negative: Change in Vision, Double Vision Thyroid: Positive: Palpitations Negative: Weight Loss, Weight Gain Pulmonary: Negative: Asthma, Exercise Intolerance Cardiology: Positive: Chest Pain, Edema Negative: Shortness of Breath, Palpitations, Faintness, Syncope, Claudication , Orthopnea Gastroenterology: Negative: Blood in Stools, Haematemesis, Melena Genital - Urinary: Negative: Dysuria, Hematuria Musculoskeletal: Negative: Joint Pain, Joint Stiffness Endocrinology: Positive: Obesity, Diabetes Negative: Polydipsia, Polyuria Hematologic/Lymphatic: Positive: Anemia Negative: Use of Anticoagulant, Use of Antiplatelet Drugs Neurology: Negative: Change in Speech, Change in Sphincter Function, Change in Walking Psychiatry: Negative: Unusual Anxiety, Suicidal Ideation Allergic/Immunologic: Negative: Hx HIV, Immunocompromise Review of Systems Statement: All other review of systems negative, unless stated above. Objective Vital Signs: Temp Pulse Resp BP Pulse Ox 98.0 F 75 15 164/69 97 06/26/19 14:13 06/26/19 14:13 06/26/19 14:13 06/26/19 14:04 06/26/19 14:13 Appearance: obese, pleasant, nad Ears/Nose/Mouth/Throat: Clear Oropharnyx, Mucous Membranes Moist Neck: NL Appearance and Movements; NL JVP, Trachea Midline Respiratory: Symmetrical Chest Expansion and Respiratory Effort, - - distant breath sounds Cardiovascular: RRR, - - distant, no significant murmur Abdominal: - - soft, obese Extremities: No Clubbing, Cyanosis, - - mild edema Skin: No Rash or Ulcers Neurological: - - awake and alert Laboratory Results: 06/26/19 13:26 06/26/19 13:26 Na 137, k 4.2 INR (Anticoag Therapy) 1.04 (0.82-1.09) 06/26/19 05:51 APTT 27.1 seconds (26.0-38.0) 06/26/19 13:26 Total Bilirubin 0.30 mg/dL (0.2-1.0) 06/26/19 05:51 AST 9 U/L (13-39) L 06/26/19 05:51 ALT 7 U/L (7-52) 06/26/19 05:51 Alkaline Phosphatase 76 U/L (34-104) 06/26/19 05:51 B-Natriuretic Peptide 592 pg/mL (<=100) H 06/26/19 05:44 Total Protein 6.6 g/dL (6.4-8.9) 06/26/19 05:51 Albumin 3.6 g/dL (3.2-5.2) 06/26/19 05:51 Globulin 3.0 g/dL (2-4) 06/26/19 05:51 Albumin/Globulin Ratio 1.2 (1-3) 06/26/19 05:51 06/26/19 06/26/19 06/26/19 05:51 08:27 11:55 Troponin I 0.03 0.80 H* 3.47 H* Diagnostic Imaging: Transthoracic Echocardiogram Study Date: 06/26/2019 Conclusions Summary: - Left ventricle: The cavity size is normal. Wall thickness is normal. Systolic function is moderately reduced. The estimated ejection fraction is 30-35%. - Right ventricle: The cavity size is normal. Systolic function is mildly reduced. - Mitral valve: There is mild to moderate regurgitation. - Pulmonary arteries: Systolic pressure is moderately increased. T Exam Date: 06/26/19 CHEST AP OR PORT IMPRESSION: FINDINGS SUGGESTIVE OF MILD CONGESTIVE HEART FAILURE. EKG Data: ekg 06/26/2019 initial NSR 82 bpm, ischemic downsloping ST depression inferior, v3-v6 and 1/aVL ekg repeat: NSr, markedly improvement of st changes to baseline of 02/28/2019 ekg Assessment/Plan 1. NSTEMI - currently pain free and hemodynamically stable with no arrhythmias. - LVEF 30-35%, stable from prior - Continue aspirin 81 mg po daily - Continue heparin gtt x 48 hours - Given plavix 600 mg po x 1 now then 75 mg po daily for 1 year if tolerated ( ordered) - continue toprol 100 mg po daily - continue amlodipine 5 mg po daily, would increase to 10 mg if BP stays elevated as an anti-anginal (LVEF noted) - Continue lasix - continue hydralazine - Not on acei/arb due to renal failure - Statin intolerant - Would trend ck-mb and not troponin to estimate infarct size with advanced CKD. Given patients age, comorbidities and likelihood for requiring dialysis, I think that the risks of revascularization would outweigh the benefits. We discussed this at length and she is agreeable to current plan of medical management. Thank you for allowing me to participate in the cardiovascular care of this patient. Please do not hesitate to contact me with questions or concerns.
[2019-06-26 16:37] LABS: Troponin I 5.53 ng/mL (<0.04)
[2019-06-26] MEDS: Insulin LISPRO* 1 UNITS UNIT SUBCUT SCH ×2 (17:07→21:17)
[2019-06-26 20:53] LABS: Troponin I 6.05 ng/mL (<0.04)
[2019-06-26] MEDS: ceFAZolin 1 GM ADVAN(*) 1 GM in NS 0.9% 50 ML* 50 ML IVPB SCH (21:07)
[2019-06-26] MEDS: traMADol TAB* 50 MG PO SCH (21:10)
[2019-06-26] MEDS: Furosemide TAB* 40 MG PO SCH (21:11)
[2019-06-26] MEDS: Docusate CAP* 100 MG PO SCH (21:11)
[2019-06-26] MEDS: Senna TAB 8.6 mg* TAB PO SCH (21:11)
[2019-06-26] MEDS: Doxazosin TAB* 2 MG PO SCH (21:12)
[2019-06-27 00:27] LABS: Troponin I 5.29 ng/mL (<0.04)
[2019-06-27 06:10] LABS: BUN/Creatinine Ratio 21.5 (8-20); Calcium 9.3 mg/dL (8.6-10.3); EGFR African American 15.5 (>60); EGFR Non-African American 12.8 (>60); Potassium 4.3 mmol/L (3.5-5.0)
[2019-06-27 06:16] LABS: CKMB ng/mL 8.3 ng/mL (0.6-6.3)
[2019-06-27 06:56] LABS: ABS Eosinophils 0.2 10^3/ul (0-0.6); ABS Lymphocytes 1.4 10^3/ul (1.0-4.8); ABS Monocytes 0.5 10^3/ul (0-0.8); ABS Neutrophils 3.7 10^3/ul (1.5-7.7); Eosinophil % 2.9 %; Hematocrit 22 % (35-47); Hemoglobin 7.5 g/dL (12.0-16.0); Lymphocyte % 23.7 %; Mean Corpuscular HGB Conc 35 g/dL (31-36); Mean Corpuscular Hemoglobin 32 pg (27-31); Mean Corpuscular Volume 92 fL (80-97); Mean Platelet Volume 8.1 fL (7.4-10.4); Platelet Count 171 10^3/uL (150-450); Red Blood Count 2.37 10^6 /uL (3.70-4.87); Red Cell Distribution Width 15 % (10-15); White Blood Count 5.8 10^3/uL (3.5-10.8)
[2019-06-27] MEDS: Insulin LISPRO* 1 UNITS UNIT SUBCUT SCH ×4 (08:02→20:43)
[2019-06-27] MEDS ORDERED: amLODIPine TAB* 5 MG PO SCH (09:00)
[2019-06-27] MEDS: ceFAZolin 1 GM ADVAN(*) 1 GM in NS 0.9% 50 ML* 50 ML IVPB SCH ×2 (10:03→20:44)
[2019-06-27] MEDS: hydrALAZINE TAB* 25 MG PO SCH ×3 (10:06→20:42)
[2019-06-27] MEDS: Metoprolol Succinate XL TAB* 100 MG PO SCH (10:06)
[2019-06-27] MEDS: Docusate CAP* 100 MG PO SCH ×2 (10:07→20:41)
[2019-06-27] MEDS: Senna TAB 8.6 mg* TAB PO SCH ×2 (10:07→20:41)
[2019-06-27] MEDS: Aspirin 81 mg CHEW TAB* 81 MG TAB.CHEW PO SCH (10:07)
[2019-06-27] MEDS: Furosemide TAB* 40 MG PO SCH ×2 (10:07→20:42)
[2019-06-27] MEDS: Pantoprazole TAB * 40 MG TAB PO SCH (10:07)
[2019-06-27] MEDS: Clopidogrel TAB* 75 MG PO SCH (10:07)
[2019-06-27] MEDS: Acetaminophen TAB* 325 MG PO SCH ×3 (10:16→20:41)
[2019-06-27] MEDS ORDERED: amLODIPine TAB* 5 MG PO ONE (13:31)
--- NOTE | 2019-06-27 13:35 | PN ---
Subjective Date of Service: 06/27/19 Interval History: f/u NSTEMI patient has no chest discomfort breathing at baseline enzymatically small infarct tele no arrhythmias Medications Active Medications: Acetaminophen (Tylenol Tab*) 975 mg PO TID [facility] Last Admin: 06/27/19 10:16 Dose: 975 mg Al Hydrox/Mg Hydrox/Simethicone (Maalox Plus*) 30 ml PO Q6H PRN PRN Reason: INDIGESTION Albuterol/Ipratropium (Duoneb (Albuterol 2.5 Mg/Ipratropium 0.5 Mg)) 1 neb INH Q4HR PRN PRN Reason: WHEEZING Amlodipine Besylate (Norvasc Tab*) 5 mg PO DAILY [facility] Last Admin: 06/27/19 10:07 Dose: 5 mg Aspirin (Aspirin 81 Mg Chew Tab*) 81 mg PO DAILY [facility] Last Admin: 06/27/19 10:07 Dose: 81 mg Calcitriol (Rocaltrol Cap*) 0.25 mcg PO MoTh@0900 [facility] Calcium Carbonate (Tums*) 500 mg PO Q4H PRN PRN Reason: INDIGESTION Cholecalciferol (Vitamin D Tab*) 1,000 units PO EVERY OTHER DAY [facility] Clopidogrel Bisulfate (Plavix Tab*) 75 mg PO DAILY [facility] Last Admin: 06/27/19 10:07 Dose: 75 mg Dextrose (Dextrose 50% Vial 50 Ml*) 25 ml IV PUSH .FOR FS < 60 - SS PRN PRN Reason: FS < 60 Docusate Sodium (Colace Cap*) 100 mg PO BID [facility] Last Admin: 06/27/19 10:07 Dose: 100 mg Doxazosin Mesylate (Cardura Tab*) 2 mg PO BEDTIME [facility] Last Admin: 06/26/19 21:12 Dose: 2 mg Furosemide (Lasix Tab*) 40 mg PO BID [facility] Last Admin: 06/27/19 10:07 Dose: 40 mg Heparin Sodium (Porcine) (Heparin Vial(*)) 0 units IV .PER PROTOCOL [facility] Last Admin: 06/26/19 13:41 Dose: 4,000 units Hydralazine HCl (Apresoline Tab*) 50 mg PO TID [facility] Last Admin: 06/27/19 10:06 Dose: 50 mg Heparin Sodium/Dextrose (Heparin Drip 25,000 Units(*)) 25,000 units in 500 mls @ 0 mls/hr IV PER RATE [facility]; Protocol Last Admin: 06/26/19 13:37 Dose: 17 mls/hr Cefazolin Sodium 1 gm/ Sodium (Chloride) 50 mls @ 200 mls/hr IVPB Q12H [facility] Last Admin: 06/27/19 10:03 Dose: 200 mls/hr Insulin Human Lispro (Humalog*) 0 units SUBCUT ACHS [facility]; Protocol Last Admin: 06/27/19 12:43 Dose: Not Given Loperamide HCl (Imodium Cap*) 2 mg PO DAILY PRN PRN Reason: DIARRHEA Metoprolol Succinate (Toprol Xl Tab*) 100 mg PO DAILY [facility] Last Admin: 06/27/19 10:06 Dose: 100 mg Ondansetron HCl (Zofran Tab*) 4 mg PO Q6H PRN PRN Reason: NAUSEA Pantoprazole Sodium (Protonix Tab*) 40 mg PO DAILY [facility] Last Admin: 06/27/19 10:07 Dose: 40 mg Polyethylene Glycol/Electrolytes (Miralax*) 17 gm PO DAILY PRN PRN Reason: CONSTIPATION Senna (Senokot Tab*) 1 tab PO BID [facility] Last Admin: 06/27/19 10:07 Dose: 1 tab Tramadol HCl (Ultram*) 75 mg PO BEDTIME [facility] Last Admin: 06/26/19 21:10 Dose: 75 mg Tramadol HCl (Ultram*) 50 mg PO Q8H PRN PRN Reason: PAIN - MODERATE Objective Vital Signs: Temp Pulse Resp BP Pulse Ox 99.1 F 73 16 141/46 99 06/27/19 03:00 06/27/19 03:00 06/27/19 08:00 06/27/19 03:00 06/27/19 03:00 Oxygen Devices in Use Now: None Appearance: obese, pleasant, nad Ears/Nose/Mouth/Throat: Clear Oropharnyx, Mucous Membranes Moist Neck: NL Appearance and Movements; NL JVP, Trachea Midline Respiratory: Symmetrical Chest Expansion and Respiratory Effort, - - distant breath sounds Cardiovascular: RRR, - - distant, no significant murmur Abdominal: - - soft, obese Extremities: No Clubbing, Cyanosis, - - mild edema Skin: No Rash or Ulcers Neurological: - - awake and alert Laboratory Results: 06/27/19 05:40 06/27/19 05:40 INR (Anticoag Therapy) 1.04 (0.82-1.09) 06/26/19 05:51 APTT 55.3 seconds (26.0-38.0) H 06/27/19 09:02 Total Bilirubin 0.30 mg/dL (0.2-1.0) 06/26/19 05:51 AST 9 U/L (13-39) L 06/26/19 05:51 ALT 7 U/L (7-52) 06/26/19 05:51 Alkaline Phosphatase 76 U/L (34-104) 06/26/19 05:51 CK-MB (CK-2) 8.3 ng/mL (0.6-6.3) H 06/27/19 05:40 B-Natriuretic Peptide 592 pg/mL (<=100) H 06/26/19 05:44 Total Protein 6.6 g/dL (6.4-8.9) 06/26/19 05:51 Albumin 3.6 g/dL (3.2-5.2) 06/26/19 05:51 Globulin 3.0 g/dL (2-4) 06/26/19 05:51 Albumin/Globulin Ratio 1.2 (1-3) 06/26/19 05:51 06/26/19 06/26/19 06/26/19 05:51 08:27 11:55 Troponin I 0.03 0.80 H* 3.47 H* 06/26/19 06/26/19 06/26/19 15:55 20:10 23:50 Troponin I 5.53 H* 6.05 H* 5.29 H* Diagnostic Imaging: Transthoracic Echocardiogram Study Date: 06/26/2019 Conclusions Summary: - Left ventricle: The cavity size is normal. Wall thickness is normal. Systolic function is moderately reduced. The estimated ejection fraction is 30-35%. - Right ventricle: The cavity size is normal. Systolic function is mildly reduced. - Mitral valve: There is mild to moderate regurgitation. - Pulmonary arteries: Systolic pressure is moderately increased. T Exam Date: 06/26/19 CHEST AP OR PORT IMPRESSION: FINDINGS SUGGESTIVE OF MILD CONGESTIVE HEART FAILURE. EKG Data: ekg 06/26/2019 initial NSR 82 bpm, ischemic downsloping ST depression inferior, v3-v6 and 1/aVL ekg repeat: NSr, markedly improvement of st changes to baseline of 02/28/2019 ekg Assessment/Plan 1. NSTEMI - currently pain free and hemodynamically stable with no arrhythmias. - enzymatically small infarct - LVEF 30-35%, stable from prior 2. anemia 3. Known systolic dysfunction LVEF of 30% to 35% documented in February 2019 4. History of 5.2 cm right renal mass, likely renal cell carcinoma documented in February 2019, for which the patient declined to have further evaluation. 5. History of advanced chronic kidney disease, patient would not want dialysis 6. History of diabetes type 2. . - Continue aspirin 81 mg po daily - Continue heparin gtt x 48 hours - Continue plavix 75 mg po daily for 1 year if tolerated - continue toprol 100 mg po daily - Bp remains elevated, increase amlodipine to10 mg if BP stays elevated as an anti-anginal (LVEF noted) - Continue lasix - continue hydralazine - Not on acei/arb due to renal failure - Statin intolerant - I think overall would not be opposed to erythropoetin in this particular situation if it were otherwise indicated for anemia Thank you for allowing me to participate in the cardiovascular care of this patient. Please do not hesitate to contact me with questions or concerns.
--- NOTE | 2019-06-27 16:47 | PN ---
Subjective Date of Service: 06/27/19 Interval History: Denies any CP.No SOB Objective Active Medications: Acetaminophen (Tylenol Tab*) 975 mg PO TID [facility] Last Admin: 06/27/19 15:21 Dose: 975 mg Al Hydrox/Mg Hydrox/Simethicone (Maalox Plus*) 30 ml PO Q6H PRN PRN Reason: INDIGESTION Albuterol/Ipratropium (Duoneb (Albuterol 2.5 Mg/Ipratropium 0.5 Mg)) 1 neb INH Q4HR PRN PRN Reason: WHEEZING Amlodipine Besylate (Norvasc Tab*) 10 mg PO DAILY [facility] Aspirin (Aspirin 81 Mg Chew Tab*) 81 mg PO DAILY [facility] Last Admin: 06/27/19 10:07 Dose: 81 mg Calcitriol (Rocaltrol Cap*) 0.25 mcg PO MoTh@0900 [facility] Calcium Carbonate (Tums*) 500 mg PO Q4H PRN PRN Reason: INDIGESTION Cholecalciferol (Vitamin D Tab*) 1,000 units PO EVERY OTHER DAY [facility] Clopidogrel Bisulfate (Plavix Tab*) 75 mg PO DAILY [facility] Last Admin: 06/27/19 10:07 Dose: 75 mg Dextrose (Dextrose 50% Vial 50 Ml*) 25 ml IV PUSH .FOR FS < 60 - SS PRN PRN Reason: FS < 60 Docusate Sodium (Colace Cap*) 100 mg PO BID [facility] Last Admin: 06/27/19 10:07 Dose: 100 mg Doxazosin Mesylate (Cardura Tab*) 2 mg PO BEDTIME [facility] Last Admin: 06/26/19 21:12 Dose: 2 mg Furosemide (Lasix Tab*) 40 mg PO BID [facility] Last Admin: 06/27/19 10:07 Dose: 40 mg Heparin Sodium (Porcine) (Heparin Vial(*)) 0 units IV .PER PROTOCOL [facility] Last Admin: 06/26/19 13:41 Dose: 4,000 units Hydralazine HCl (Apresoline Tab*) 50 mg PO TID [facility] Last Admin: 06/27/19 15:19 Dose: 50 mg Heparin Sodium/Dextrose (Heparin Drip 25,000 Units(*)) 25,000 units in 500 mls @ 0 mls/hr IV PER RATE [facility]; Protocol Last Admin: 06/26/19 13:37 Dose: 17 mls/hr Cefazolin Sodium 1 gm/ Sodium (Chloride) 50 mls @ 200 mls/hr IVPB Q12H [facility] Last Admin: 06/27/19 10:03 Dose: 200 mls/hr Insulin Human Lispro (Humalog*) 0 units SUBCUT ACHS [facility]; Protocol Last Admin: 06/27/19 12:43 Dose: Not Given Loperamide HCl (Imodium Cap*) 2 mg PO DAILY PRN PRN Reason: DIARRHEA Metoprolol Succinate (Toprol Xl Tab*) 100 mg PO DAILY [facility] Last Admin: 06/27/19 10:06 Dose: 100 mg Ondansetron HCl (Zofran Tab*) 4 mg PO Q6H PRN PRN Reason: NAUSEA Pantoprazole Sodium (Protonix Tab*) 40 mg PO DAILY [facility] Last Admin: 06/27/19 10:07 Dose: 40 mg Polyethylene Glycol/Electrolytes (Miralax*) 17 gm PO DAILY PRN PRN Reason: CONSTIPATION Senna (Senokot Tab*) 1 tab PO BID [facility] Last Admin: 06/27/19 10:07 Dose: 1 tab Tramadol HCl (Ultram*) 75 mg PO BEDTIME [facility] Last Admin: 06/26/19 21:10 Dose: 75 mg Tramadol HCl (Ultram*) 50 mg PO Q8H PRN PRN Reason: PAIN - MODERATE Vital Signs - 8 hr 06/27/19 11:00 Temperature 98.5 F Pulse Rate 72 Respiratory 19 Rate Blood Pressure 180/57 (mmHg) O2 Sat by Pulse 98 Oximetry Oxygen Devices in Use Now: None Eyes: No Scleral Icterus Ears/Nose/Mouth/Throat: NL Teeth, Lips, Gums Neck: NL Appearance and Movements; NL JVP Respiratory: Symmetrical Chest Expansion and Respiratory Effort, Clear to Auscultation Cardiovascular: NL Sounds; No Murmurs; No JVD, RRR Abdominal: NL Sounds; No Tenderness; No Distention Neurological: Alert and Oriented x 3 Result Diagrams: 06/27/19 05:40 06/27/19 05:40 Additional Lab and Data: Lab Results 06/26/19 06/26/19 06/26/19 Range/Units 05:51 05:51 05:51 WBC 6.5 (3.5-10.8) 10^3/uL RBC 2.68 L (3.70-4.87) 10^6 /uL Hgb 8.4 L (12.0-16.0) g/dL Hct 24 L (35-47) % MCV 91 (80-97) fL MCH 31 (27-31) pg MCHC 35 (31-36) g/dL RDW 15 (10-15) % Plt Count 170 (150-450) 10^3/uL MPV 7.7 (7.4-10.4) fL Neut % (Auto) 81.2 % Lymph % (Auto) 10.0 % [place] % (Auto) 6.1 % Eos % (Auto) 1.7 % Baso % (Auto) 1.0 % Absolute Neuts (auto) 5.3 (1.5-7.7) 10^3/ul Absolute Lymphs (auto) 0.7 L (1.0-4.8) 10^3/ul Absolute Monos (auto) 0.4 (0-0.8) 10^3/ul Absolute Eos (auto) 0.1 (0-0.6) 10^3/ul Absolute Basos (auto) 0.1 (0-0.2) 10^3/ul Absolute Nucleated RBC 0.0 10^3/ul Nucleated RBC % 0.0 INR (Anticoag Therapy) 1.04 (0.82-1.09) Sodium 137 (135-145) mmol/L Potassium 4.2 (3.5-5.0) mmol/L Chloride 106 (101-111) mmol/L Carbon Dioxide 22 (22-32) mmol/L Anion Gap 9 (2-11) mmol/L BUN 76 H (6-24) mg/dL Creatinine 3.55 H (0.51-0.95) mg/dL Est GFR ( Amer) 14.7 (>60) Est GFR (Non-Af Amer) 12.2 (>60) BUN/Creatinine Ratio 21.4 H (8-20) Glucose 88 (70-100) mg/dL Calcium 10.0 (8.6-10.3) mg/dL Total Bilirubin 0.30 (0.2-1.0) mg/dL AST 9 L (13-39) U/L ALT 7 (7-52) U/L Alkaline Phosphatase 76 (34-104) U/L Troponin I 0.03 (<0.04) ng/mL Total Protein 6.6 (6.4-8.9) g/dL Albumin 3.6 (3.2-5.2) g/dL Globulin 3.0 (2-4) g/dL Albumin/Globulin Ratio 1.2 (1-3) Microbiology and Other Data: Microbiology 06/26/19 06:51 Skin and Soft Tissue MRSA/MSSA (PCR - Final Axilla Left Mrsa Negative S.aureus Negative Gram Stain - Final Assess/Plan/Problems-Billing Assessment: - Patient Problems (1) NSTEMI (non-ST elevated myocardial infarction) Current Visit: Yes Status: Acute Code(s): I21.4 - NON-ST ELEVATION (NSTEMI) MYOCARDIAL INFARCTION SNOMED Code(s): 15867576 Comment: Medical management Appreciate Cardiology input Heparin drip *48h, Plavix 1 year,Aspirin,Toprol Not on L[place]ON in setting of advanced CKD EF 30-35% (2) CHF (congestive heart failure) Current Visit: Yes Status: Acute Code(s): I50.9 - HEART FAILURE, UNSPECIFIED SNOMED Code(s): 08091043 Comment: EF 30-35% Continue lasix (3) Renal mass Current Visit: Yes Status: Acute Code(s): N28.89 - OTHER SPECIFIED DISORDERS OF KIDNEY AND URETER SNOMED Code(s): 404795530 Comment: 5.2 cm R renal mass likely renal cell carcinoma noted February 2019 Pt does not want any work up (4) CKD (chronic kidney disease) Current Visit: Yes Status: Acute Code(s): N18.9 - CHRONIC KIDNEY DISEASE, UNSPECIFIED SNOMED Code(s): 448937723 Comment: Does not want dialysis if her renal fx worsened no acute transitional living specialist indications follows with wet machine tender in [place] (5) Anemia Current Visit: Yes Status: Acute Code(s): D64.9 - ANEMIA, UNSPECIFIED SNOMED Code(s): 172047789 Comment: will check iron studies,b12,folate Epo if warranted beyond 48-72h after CT if ok with cards Epo will not work without adequate iron stores will check and replete iron if low
[2019-06-27 18:00] LABS: % Iron Saturation 37 % (15-55); Iron 70 ug/dL (50-212); Total Iron Binding Capacity 188 mcg/dL (250-450); Transferrin 134 mg/dL (203-362)
[2019-06-27 18:21] LABS: Ferritin 329.3 ng/mL (11-307)
[2019-06-27 18:24] LABS: Folate 7.57 ng/mL (>3.99)
[2019-06-27] MEDS: Heparin VIAL(*) 5000 UNITS/ML VIAL (FIVE THOUSAND) IV SCH (18:32)
[2019-06-27] MEDS: Doxazosin TAB* 2 MG PO SCH (20:41)
[2019-06-27] MEDS: traMADol TAB* 50 MG PO SCH (20:42)
[2019-06-27] MEDS: Heparin DRIP 25,000 UNITS(*) 25,000 UNITS/500 ML BAG IV SCH (21:40)
[2019-06-28] MEDS: Insulin LISPRO* 1 UNITS UNIT SUBCUT SCH ×4 (07:57→21:48)
[2019-06-28 08:19] LABS: BUN/Creatinine Ratio 21.8 (8-20); Calcium 9.6 mg/dL (8.6-10.3); EGFR African American 16.5 (>60); EGFR Non-African American 13.7 (>60); Potassium 4.6 mmol/L (3.5-5.0)
[2019-06-28 08:22] LABS: ABS Basophils 0.1 10^3/ul (0-0.2); ABS Eosinophils 0.2 10^3/ul (0-0.6); ABS Lymphocytes 1.2 10^3/ul (1.0-4.8); ABS Monocytes 0.6 10^3/ul (0-0.8); ABS Neutrophils 4.2 10^3/ul (1.5-7.7); Hematocrit 22 % (35-47); Hemoglobin 7.6 g/dL (12.0-16.0); Lymphocyte % 18.7 %; Mean Corpuscular HGB Conc 34 g/dL (31-36); Mean Corpuscular Hemoglobin 31 pg (27-31); Mean Corpuscular Volume 92 fL (80-97); Nucleated Red Blood Cells % 0.1; Platelet Count 165 10^3/uL (150-450); Red Blood Count 2.44 10^6 /uL (3.70-4.87); Red Cell Distribution Width 15 % (10-15); White Blood Count 6.2 10^3/uL (3.5-10.8)
[2019-06-28] MEDS: ceFAZolin 1 GM ADVAN(*) 1 GM in NS 0.9% 50 ML* 50 ML IVPB SCH ×2 (09:07→21:47)
[2019-06-28] MEDS: Acetaminophen TAB* 325 MG PO SCH ×3 (09:11→21:55)
[2019-06-28] MEDS: Cholecalciferol TAB* 1000 UNITS PO SCH (09:12)
[2019-06-28] MEDS: amLODIPine TAB* 5 MG PO SCH (09:12)
[2019-06-28] MEDS: Aspirin 81 mg CHEW TAB* 81 MG TAB.CHEW PO SCH (09:12)
[2019-06-28] MEDS: Furosemide TAB* 40 MG PO SCH ×2 (09:13→21:53)
[2019-06-28] MEDS: Pantoprazole TAB * 40 MG TAB PO SCH (09:13)
[2019-06-28] MEDS: Docusate CAP* 100 MG PO SCH ×2 (09:13→21:54)
[2019-06-28] MEDS: Clopidogrel TAB* 75 MG PO SCH (09:13)
[2019-06-28] MEDS: Senna TAB 8.6 mg* TAB PO SCH ×2 (09:13→21:54)
[2019-06-28] MEDS: Metoprolol Succinate XL TAB* 100 MG PO SCH (09:13)
[2019-06-28] MEDS: hydrALAZINE TAB* 25 MG PO SCH ×3 (09:13→21:54)
--- NOTE | 2019-06-28 13:11 | PN ---
Subjective Date of Service: 06/28/19 Interval History: No cp.No sob.Denies any complaints Objective Active Medications: Acetaminophen (Tylenol Tab*) 975 mg PO TID [facility] Last Admin: 06/28/19 09:11 Dose: 975 mg Al Hydrox/Mg Hydrox/Simethicone (Maalox Plus*) 30 ml PO Q6H PRN PRN Reason: INDIGESTION Albuterol/Ipratropium (Duoneb (Albuterol 2.5 Mg/Ipratropium 0.5 Mg)) 1 neb INH Q4HR PRN PRN Reason: WHEEZING Amlodipine Besylate (Norvasc Tab*) 10 mg PO DAILY [facility] Last Admin: 06/28/19 09:12 Dose: 10 mg Aspirin (Aspirin 81 Mg Chew Tab*) 81 mg PO DAILY [facility] Last Admin: 06/28/19 09:12 Dose: 81 mg Calcitriol (Rocaltrol Cap*) 0.25 mcg PO MoTh@0900 [facility] Calcium Carbonate (Tums*) 500 mg PO Q4H PRN PRN Reason: INDIGESTION Cholecalciferol (Vitamin D Tab*) 1,000 units PO EVERY OTHER DAY [facility] Last Admin: 06/28/19 09:12 Dose: 1,000 units Clopidogrel Bisulfate (Plavix Tab*) 75 mg PO DAILY [facility] Last Admin: 06/28/19 09:13 Dose: 75 mg Dextrose (Dextrose 50% Vial 50 Ml*) 25 ml IV PUSH .FOR FS < 60 - SS PRN PRN Reason: FS < 60 Docusate Sodium (Colace Cap*) 100 mg PO BID [facility] Last Admin: 06/28/19 09:13 Dose: 100 mg Doxazosin Mesylate (Cardura Tab*) 2 mg PO BEDTIME [facility] Last Admin: 06/27/19 20:41 Dose: 2 mg Epoetin Jose (Retacrit) 4,000 unit SUBCUT ONCE ONE Stop: 06/29/19 09:01 Furosemide (Lasix Tab*) 40 mg PO BID [facility] Last Admin: 06/28/19 09:13 Dose: 40 mg Heparin Sodium (Porcine) (Heparin Vial(*)) 5,000 units SUBCUT Q8HR [facility] Hydralazine HCl (Apresoline Tab*) 50 mg PO TID [facility] Last Admin: 06/28/19 09:13 Dose: 50 mg Cefazolin Sodium 1 gm/ Sodium (Chloride) 50 mls @ 200 mls/hr IVPB Q12H [facility] Last Admin: 06/28/19 09:07 Dose: 200 mls/hr Insulin Human Lispro (Humalog*) 0 units SUBCUT ACHS [facility]; Protocol Last Admin: 06/28/19 12:36 Dose: 4 units Loperamide HCl (Imodium Cap*) 2 mg PO DAILY PRN PRN Reason: DIARRHEA Metoprolol Succinate (Toprol Xl Tab*) 100 mg PO DAILY [facility] Last Admin: 06/28/19 09:13 Dose: 100 mg Ondansetron HCl (Zofran Tab*) 4 mg PO Q6H PRN PRN Reason: NAUSEA Pantoprazole Sodium (Protonix Tab*) 40 mg PO DAILY [facility] Last Admin: 06/28/19 09:13 Dose: 40 mg Polyethylene Glycol/Electrolytes (Miralax*) 17 gm PO DAILY PRN PRN Reason: CONSTIPATION Senna (Senokot Tab*) 1 tab PO BID [facility] Last Admin: 06/28/19 09:13 Dose: 1 tab Tramadol HCl (Ultram*) 75 mg PO BEDTIME [facility] Last Admin: 06/27/19 20:42 Dose: 75 mg Tramadol HCl (Ultram*) 50 mg PO Q8H PRN PRN Reason: PAIN - MODERATE Vital Signs - 8 hr 06/28/19 06/28/19 07:46 08:18 Temperature 98.2 F Pulse Rate 73 Respiratory 16 16 Rate Blood Pressure 147/50 (mmHg) O2 Sat by Pulse 99 Oximetry Oxygen Devices in Use Now: None Eyes: No Scleral Icterus Ears/Nose/Mouth/Throat: NL Teeth, Lips, Gums Neck: NL Appearance and Movements; NL JVP Respiratory: Symmetrical Chest Expansion and Respiratory Effort Cardiovascular: NL Sounds; No Murmurs; No JVD Abdominal: NL Sounds; No Tenderness; No Distention Neurological: Alert and Oriented x 3 Result Diagrams: 06/28/19 07:44 06/28/19 07:44 Additional Lab and Data: Lab Results 06/26/19 06/26/19 06/26/19 Range/Units 05:51 05:51 05:51 WBC 6.5 (3.5-10.8) 10^3/uL RBC 2.68 L (3.70-4.87) 10^6 /uL Hgb 8.4 L (12.0-16.0) g/dL Hct 24 L (35-47) % MCV 91 (80-97) fL MCH 31 (27-31) pg MCHC 35 (31-36) g/dL RDW 15 (10-15) % Plt Count 170 (150-450) 10^3/uL MPV 7.7 (7.4-10.4) fL Neut % (Auto) 81.2 % Lymph % (Auto) 10.0 % [place] % (Auto) 6.1 % Eos % (Auto) 1.7 % Baso % (Auto) 1.0 % Absolute Neuts (auto) 5.3 (1.5-7.7) 10^3/ul Absolute Lymphs (auto) 0.7 L (1.0-4.8) 10^3/ul Absolute Monos (auto) 0.4 (0-0.8) 10^3/ul Absolute Eos (auto) 0.1 (0-0.6) 10^3/ul Absolute Basos (auto) 0.1 (0-0.2) 10^3/ul Absolute Nucleated RBC 0.0 10^3/ul Nucleated RBC % 0.0 INR (Anticoag Therapy) 1.04 (0.82-1.09) Sodium 137 (135-145) mmol/L Potassium 4.2 (3.5-5.0) mmol/L Chloride 106 (101-111) mmol/L Carbon Dioxide 22 (22-32) mmol/L Anion Gap 9 (2-11) mmol/L BUN 76 H (6-24) mg/dL Creatinine 3.55 H (0.51-0.95) mg/dL Est GFR ( Amer) 14.7 (>60) Est GFR (Non-Af Amer) 12.2 (>60) BUN/Creatinine Ratio 21.4 H (8-20) Glucose 88 (70-100) mg/dL Calcium 10.0 (8.6-10.3) mg/dL Total Bilirubin 0.30 (0.2-1.0) mg/dL AST 9 L (13-39) U/L ALT 7 (7-52) U/L Alkaline Phosphatase 76 (34-104) U/L Troponin I 0.03 (<0.04) ng/mL Total Protein 6.6 (6.4-8.9) g/dL Albumin 3.6 (3.2-5.2) g/dL Globulin 3.0 (2-4) g/dL Albumin/Globulin Ratio 1.2 (1-3) Microbiology and Other Data: Microbiology 06/26/19 06:51 Skin and Soft Tissue MRSA/MSSA (PCR - Final Axilla Left Mrsa Negative S.aureus Negative Gram Stain - Final Assess/Plan/Problems-Billing Assessment: - Patient Problems (1) NSTEMI (non-ST elevated myocardial infarction) Current Visit: Yes Status: Acute Code(s): I21.4 - NON-ST ELEVATION (NSTEMI) MYOCARDIAL INFARCTION SNOMED Code(s): 97080091 Comment: Medical management Appreciate Cardiology input Heparin drip *48h stopping this afternoon, Plavix 1 year,Aspirin,Toprol Not on [place] in setting of advanced CKD EF 30-35% (2) CHF (congestive heart failure) Current Visit: Yes Status: Acute Code(s): I50.9 - HEART FAILURE, UNSPECIFIED SNOMED Code(s): 42744733 Comment: EF 30-35% Continue lasix (3) Renal mass Current Visit: Yes Status: Acute Code(s): N28.89 - OTHER SPECIFIED DISORDERS OF KIDNEY AND URETER SNOMED Code(s): 272371117 Comment: 5.2 cm R renal mass likely renal cell carcinoma noted February 2019 Pt did not want any work up (4) CKD (chronic kidney disease) Current Visit: Yes Status: Acute Code(s): N18.9 - CHRONIC KIDNEY DISEASE, UNSPECIFIED SNOMED Code(s): 687284879 Comment: Does not want dialysis if her renal fx worsened no acute court abstractor indications follows with powderer in [place] (5) Anemia Current Visit: Yes Status: Acute Code(s): D64.9 - ANEMIA, UNSPECIFIED SNOMED Code(s): 657848206 Comment: iron studies,b12,folate nl Epo if warranted beyond 48-72h of ID Epo will not work without adequate iron stores Cardiology/Dr Sathish veloz with Epo Will give 1 dose tomorrow Status and Disposition: PT/Ot/ Discharge planning
--- NOTE | 2019-06-28 13:13 | PN ---
Subjective Date of Service: 06/28/19 Interval History: f/u NSTEMI patient has no chest discomfort breathing at baseline tele no arrhythmias Medications Active Medications: Acetaminophen (Tylenol Tab*) 975 mg PO TID [facility] Last Admin: 06/28/19 09:11 Dose: 975 mg Al Hydrox/Mg Hydrox/Simethicone (Maalox Plus*) 30 ml PO Q6H PRN PRN Reason: INDIGESTION Albuterol/Ipratropium (Duoneb (Albuterol 2.5 Mg/Ipratropium 0.5 Mg)) 1 neb INH Q4HR PRN PRN Reason: WHEEZING Amlodipine Besylate (Norvasc Tab*) 10 mg PO DAILY [facility] Last Admin: 06/28/19 09:12 Dose: 10 mg Aspirin (Aspirin 81 Mg Chew Tab*) 81 mg PO DAILY [facility] Last Admin: 06/28/19 09:12 Dose: 81 mg Calcitriol (Rocaltrol Cap*) 0.25 mcg PO MoTh@0900 [facility] Calcium Carbonate (Tums*) 500 mg PO Q4H PRN PRN Reason: INDIGESTION Cholecalciferol (Vitamin D Tab*) 1,000 units PO EVERY OTHER DAY [facility] Last Admin: 06/28/19 09:12 Dose: 1,000 units Clopidogrel Bisulfate (Plavix Tab*) 75 mg PO DAILY [facility] Last Admin: 06/28/19 09:13 Dose: 75 mg Dextrose (Dextrose 50% Vial 50 Ml*) 25 ml IV PUSH .FOR FS < 60 - SS PRN PRN Reason: FS < 60 Docusate Sodium (Colace Cap*) 100 mg PO BID [facility] Last Admin: 06/28/19 09:13 Dose: 100 mg Doxazosin Mesylate (Cardura Tab*) 2 mg PO BEDTIME [facility] Last Admin: 06/27/19 20:41 Dose: 2 mg Epoetin Jose (Retacrit) 4,000 unit SUBCUT ONCE ONE Stop: 06/29/19 09:01 Furosemide (Lasix Tab*) 40 mg PO BID [facility] Last Admin: 06/28/19 09:13 Dose: 40 mg Heparin Sodium (Porcine) (Heparin Vial(*)) 5,000 units SUBCUT Q8HR [facility] Hydralazine HCl (Apresoline Tab*) 75 mg PO TID [facility] Cefazolin Sodium 1 gm/ Sodium (Chloride) 50 mls @ 200 mls/hr IVPB Q12H [facility] Last Admin: 06/28/19 09:07 Dose: 200 mls/hr Insulin Human Lispro (Humalog*) 0 units SUBCUT ACHS [facility]; Protocol Last Admin: 06/28/19 12:36 Dose: 4 units Loperamide HCl (Imodium Cap*) 2 mg PO DAILY PRN PRN Reason: DIARRHEA Metoprolol Succinate (Toprol Xl Tab*) 100 mg PO DAILY [facility] Last Admin: 06/28/19 09:13 Dose: 100 mg Ondansetron HCl (Zofran Tab*) 4 mg PO Q6H PRN PRN Reason: NAUSEA Pantoprazole Sodium (Protonix Tab*) 40 mg PO DAILY [facility] Last Admin: 06/28/19 09:13 Dose: 40 mg Polyethylene Glycol/Electrolytes (Miralax*) 17 gm PO DAILY PRN PRN Reason: CONSTIPATION Senna (Senokot Tab*) 1 tab PO BID [facility] Last Admin: 06/28/19 09:13 Dose: 1 tab Tramadol HCl (Ultram*) 75 mg PO BEDTIME [facility] Last Admin: 06/27/19 20:42 Dose: 75 mg Tramadol HCl (Ultram*) 50 mg PO Q8H PRN PRN Reason: PAIN - MODERATE Objective Vital Signs: Temp Pulse Resp BP Pulse Ox 98.2 F 73 16 147/50 99 06/28/19 08:18 06/28/19 08:18 06/28/19 08:18 06/28/19 08:18 06/28/19 08:18 Oxygen Devices in Use Now: None Appearance: obese, pleasant, nad Ears/Nose/Mouth/Throat: Clear Oropharnyx, Mucous Membranes Moist Neck: NL Appearance and Movements; NL JVP, Trachea Midline Respiratory: Symmetrical Chest Expansion and Respiratory Effort, - - distant breath sounds Cardiovascular: RRR, - - distant, no significant murmur Abdominal: - - soft, obese Extremities: No Clubbing, Cyanosis, - - mild edema Skin: No Rash or Ulcers Neurological: - - awake and alert Laboratory Results: 06/28/19 07:44 06/28/19 07:44 INR (Anticoag Therapy) 1.04 (0.82-1.09) 06/26/19 05:51 APTT 87.0 seconds (26.0-38.0) H 06/28/19 07:44 Total Bilirubin 0.30 mg/dL (0.2-1.0) 06/26/19 05:51 AST 9 U/L (13-39) L 06/26/19 05:51 ALT 7 U/L (7-52) 06/26/19 05:51 Alkaline Phosphatase 76 U/L (34-104) 06/26/19 05:51 CK-MB (CK-2) 8.3 ng/mL (0.6-6.3) H 06/27/19 05:40 B-Natriuretic Peptide 592 pg/mL (<=100) H 06/26/19 05:44 Total Protein 6.6 g/dL (6.4-8.9) 06/26/19 05:51 Albumin 3.6 g/dL (3.2-5.2) 06/26/19 05:51 Globulin 3.0 g/dL (2-4) 06/26/19 05:51 Albumin/Globulin Ratio 1.2 (1-3) 06/26/19 05:51 06/26/19 06/26/19 06/26/19 05:51 08:27 11:55 Troponin I 0.03 0.80 H* 3.47 H* 06/26/19 06/26/19 06/26/19 15:55 20:10 23:50 Troponin I 5.53 H* 6.05 H* 5.29 H* Diagnostic Imaging: Transthoracic Echocardiogram Study Date: 06/26/2019 Conclusions Summary: - Left ventricle: The cavity size is normal. Wall thickness is normal. Systolic function is moderately reduced. The estimated ejection fraction is 30-35%. - Right ventricle: The cavity size is normal. Systolic function is mildly reduced. - Mitral valve: There is mild to moderate regurgitation. - Pulmonary arteries: Systolic pressure is moderately increased. T Exam Date: 06/26/19 CHEST AP OR PORT IMPRESSION: FINDINGS SUGGESTIVE OF MILD CONGESTIVE HEART FAILURE. EKG Data: ekg 06/26/2019 initial NSR 82 bpm, ischemic downsloping ST depression inferior, v3-v6 and 1/aVL ekg repeat: NSr, markedly improvement of st changes to baseline of 02/28/2019 ekg Assessment/Plan 1. NSTEMI - currently pain free and hemodynamically stable with no arrhythmias. - enzymatically small infarct - LVEF 30-35%, stable from prior 2. Anemia 3. Known systolic dysfunction LVEF of 30% to 35% documented in February 2019 4. History of 5.2 cm right renal mass, likely renal cell carcinoma documented in February 2019, for which the patient declined to have further evaluation. 5. History of advanced chronic kidney disease, patient would not want dialysis 6. History of diabetes type 2. - Continue aspirin 81 mg po daily - Continue plavix 75 mg po daily for 1 year if tolerated - continue toprol 100 mg po daily - Continue bp/anti-anginal amlodipine 10 mg (LVEF noted) - Continue lasix - continue hydralazine, bp remains elevated increase to 75 mg po tid (ordered) - d/c heparin gtt and change to subq dvt prophylaxis (ordered) - Not on acei/arb due to renal failure - Statin intolerant - Anemia treatment/erythropoetin (I am not opposed in this particular situation ) as per Hospitalist/Nephrology Thank you for allowing me to participate in the cardiovascular care of this patient. Please do not hesitate to contact me with questions or concerns.
[2019-06-28] MEDS: Heparin VIAL(*) 5000 UNITS/ML VIAL (FIVE THOUSAND) SUBCUT SCH (21:47)
[2019-06-28] MEDS: Doxazosin TAB* 2 MG PO SCH (21:54)
[2019-06-28] MEDS: traMADol TAB* 50 MG PO SCH (21:54)
[2019-06-29 05:08] LABS: ABS Basophils 0.1 10^3/ul (0-0.2); ABS Eosinophils 0.2 10^3/ul (0-0.6); ABS Lymphocytes 1.2 10^3/ul (1.0-4.8); ABS Monocytes 0.6 10^3/ul (0-0.8); ABS Neutrophils 3.7 10^3/ul (1.5-7.7); Hematocrit 22 % (35-47); Hemoglobin 7.6 g/dL (12.0-16.0); Lymphocyte % 20.4 %; Mean Corpuscular HGB Conc 34 g/dL (31-36); Mean Corpuscular Hemoglobin 31 pg (27-31); Mean Corpuscular Volume 91 fL (80-97); Mean Platelet Volume 7.6 fL (7.4-10.4); Platelet Count 169 10^3/uL (150-450); Red Blood Count 2.44 10^6 /uL (3.70-4.87); Red Cell Distribution Width 15 % (10-15); White Blood Count 5.8 10^3/uL (3.5-10.8)
[2019-06-29 05:24] LABS: BUN/Creatinine Ratio 21.3 (8-20); Calcium 9.6 mg/dL (8.6-10.3); EGFR African American 15.8 (>60); Potassium 4.6 mmol/L (3.5-5.0)
[2019-06-29 05:30] LABS: Troponin I 1.29 ng/mL (<0.04)
[2019-06-29] MEDS: Insulin LISPRO* 1 UNITS UNIT SUBCUT SCH ×4 (07:27→22:49)
[2019-06-29] MEDS: Heparin VIAL(*) 5000 UNITS/ML VIAL (FIVE THOUSAND) SUBCUT SCH ×3 (07:31→22:50)
[2019-06-29] MEDS: Polyethylene Glycol 3350* 17 GM PACKET PO PRN (07:54)
[2019-06-29] MEDS: ceFAZolin 1 GM ADVAN(*) 1 GM in NS 0.9% 50 ML* 50 ML IVPB SCH ×2 (07:55→21:29)
[2019-06-29] MEDS: Docusate CAP* 100 MG PO SCH ×2 (07:58→22:48)
[2019-06-29] MEDS: Clopidogrel TAB* 75 MG PO SCH (07:59)
[2019-06-29] MEDS: Furosemide TAB* 40 MG PO SCH ×2 (07:59→22:46)
[2019-06-29] MEDS: Pantoprazole TAB * 40 MG TAB PO SCH (08:00)
[2019-06-29] MEDS: amLODIPine TAB* 5 MG PO SCH (08:00)
[2019-06-29] MEDS: Senna TAB 8.6 mg* TAB PO SCH ×2 (08:00→22:48)
[2019-06-29] MEDS: Acetaminophen TAB* 325 MG PO SCH ×2 (08:00→13:39)
[2019-06-29] MEDS: Aspirin 81 mg CHEW TAB* 81 MG TAB.CHEW PO SCH (08:00)
[2019-06-29] MEDS: hydrALAZINE TAB* 25 MG PO SCH ×3 (08:01→22:46)
[2019-06-29] MEDS ORDERED: EPOETIN ALFA-EPBX * 4,000 UNIT/ML VIAL SUBCUT ONE (09:00)
[2019-06-29] MEDS: Isosorbide Mononitrate ER TAB* 60 MG PO SCH (09:14)
[2019-06-29] MEDS: Metoprolol Succinate XL TAB* 50 MG PO SCH (09:14)
[2019-06-29] MEDS: Calcitriol CAP* 0.25 MCG PO SCH (09:17)
[2019-06-29 09:19] LABS: Troponin I 1.15 ng/mL (<0.04)
--- NOTE | 2019-06-29 10:26 | PN ---
Subjective Date of Service: 06/29/19 Interval History: No acute issues overnight Reports no chest pain, no shortness of breath, no palpitations. Daughter at bedside Objective Active Medications: Acetaminophen (Tylenol Tab*) 975 mg PO TID [facility] Last Admin: 06/29/19 08:00 Dose: Not Given Al Hydrox/Mg Hydrox/Simethicone (Maalox Plus*) 30 ml PO Q6H PRN PRN Reason: INDIGESTION Albuterol/Ipratropium (Duoneb (Albuterol 2.5 Mg/Ipratropium 0.5 Mg)) 1 neb INH Q4HR PRN PRN Reason: WHEEZING Amlodipine Besylate (Norvasc Tab*) 10 mg PO DAILY [facility] Last Admin: 06/29/19 08:00 Dose: 10 mg Aspirin (Aspirin 81 Mg Chew Tab*) 81 mg PO DAILY [facility] Last Admin: 06/29/19 08:00 Dose: 81 mg Calcitriol (Rocaltrol Cap*) 0.25 mcg PO MoTh@0900 [facility] Last Admin: 06/29/19 09:17 Dose: 0.25 mcg Calcium Carbonate (Tums*) 500 mg PO Q4H PRN PRN Reason: INDIGESTION Cholecalciferol (Vitamin D Tab*) 1,000 units PO EVERY OTHER DAY [facility] Last Admin: 06/28/19 09:12 Dose: 1,000 units Clopidogrel Bisulfate (Plavix Tab*) 75 mg PO DAILY [facility] Last Admin: 06/29/19 07:59 Dose: 75 mg Dextrose (Dextrose 50% Vial 50 Ml*) 25 ml IV PUSH .FOR FS < 60 - SS PRN PRN Reason: FS < 60 Docusate Sodium (Colace Cap*) 100 mg PO BID [facility] Last Admin: 06/29/19 07:58 Dose: 100 mg Doxazosin Mesylate (Cardura Tab*) 2 mg PO BEDTIME [facility] Last Admin: 06/28/19 21:54 Dose: 2 mg Furosemide (Lasix Tab*) 40 mg PO BID [facility] Last Admin: 06/29/19 07:59 Dose: 40 mg Heparin Sodium (Porcine) (Heparin Vial(*)) 5,000 units SUBCUT Q8HR [facility] Last Admin: 06/29/19 07:31 Dose: 5,000 units Hydralazine HCl (Apresoline Tab*) 75 mg PO TID [facility] Last Admin: 06/29/19 08:01 Dose: 75 mg Cefazolin Sodium 1 gm/ Sodium (Chloride) 50 mls @ 200 mls/hr IVPB Q12H [facility] Last Admin: 06/29/19 07:55 Dose: 200 mls/hr Insulin Human Lispro (Humalog*) 0 units SUBCUT ACHS [facility]; Protocol Last Admin: 06/29/19 07:27 Dose: Not Given Isosorbide Mononitrate (Imdur Er Tab*) 60 mg PO DAILY [facility] Last Admin: 06/29/19 09:14 Dose: 60 mg Loperamide HCl (Imodium Cap*) 2 mg PO DAILY PRN PRN Reason: DIARRHEA Metoprolol Succinate (Toprol Xl Tab*) 150 mg PO DAILY [facility] Last Admin: 06/29/19 09:14 Dose: 150 mg Ondansetron HCl (Zofran Tab*) 4 mg PO Q6H PRN PRN Reason: NAUSEA Pantoprazole Sodium (Protonix Tab*) 40 mg PO DAILY [facility] Last Admin: 06/29/19 08:00 Dose: 40 mg Polyethylene Glycol/Electrolytes (Miralax*) 17 gm PO DAILY PRN PRN Reason: CONSTIPATION Last Admin: 06/29/19 07:54 Dose: 17 gm Senna (Senokot Tab*) 1 tab PO BID [facility] Last Admin: 06/29/19 08:00 Dose: 1 tab Tramadol HCl (Ultram*) 75 mg PO BEDTIME [facility] Last Admin: 06/28/19 21:54 Dose: 75 mg Tramadol HCl (Ultram*) 50 mg PO Q8H PRN PRN Reason: PAIN - MODERATE Vital Signs - 8 hr 06/29/19 06/29/19 06/29/19 04:09 04:45 07:27 Temperature 98 F 98.3 F Pulse Rate 79 80 Respiratory 16 16 16 Rate Blood Pressure 143/53 148/53 (mmHg) O2 Sat by Pulse 99 99 Oximetry 06/29/19 07:53 Temperature 99.5 F Pulse Rate 68 Respiratory 16 Rate Blood Pressure 143/42 (mmHg) O2 Sat by Pulse 99 Oximetry Oxygen Devices in Use Now: None Appearance: Sitting on bed, not in distress Eyes: PERRLA Ears/Nose/Mouth/Throat: Mucous Membranes Moist Respiratory: Symmetrical Chest Expansion and Respiratory Effort, Clear to Auscultation Cardiovascular: NL Sounds; No Murmurs; No JVD, RRR, No Edema Abdominal: NL Sounds; No Tenderness; No Distention, No Hepatosplenomegaly Neurological: Alert and Oriented x 3 Result Diagrams: 06/29/19 05:01 06/29/19 05:01 Additional Lab and Data: Lab Results 06/26/19 06/26/19 06/26/19 Range/Units 05:51 05:51 05:51 WBC 6.5 (3.5-10.8) 10^3/uL RBC 2.68 L (3.70-4.87) 10^6 /uL Hgb 8.4 L (12.0-16.0) g/dL Hct 24 L (35-47) % MCV 91 (80-97) fL MCH 31 (27-31) pg MCHC 35 (31-36) g/dL RDW 15 (10-15) % Plt Count 170 (150-450) 10^3/uL MPV 7.7 (7.4-10.4) fL Neut % (Auto) 81.2 % Lymph % (Auto) 10.0 % [place] % (Auto) 6.1 % Eos % (Auto) 1.7 % Baso % (Auto) 1.0 % Absolute Neuts (auto) 5.3 (1.5-7.7) 10^3/ul Absolute Lymphs (auto) 0.7 L (1.0-4.8) 10^3/ul Absolute Monos (auto) 0.4 (0-0.8) 10^3/ul Absolute Eos (auto) 0.1 (0-0.6) 10^3/ul Absolute Basos (auto) 0.1 (0-0.2) 10^3/ul Absolute Nucleated RBC 0.0 10^3/ul Nucleated RBC % 0.0 INR (Anticoag Therapy) 1.04 (0.82-1.09) Sodium 137 (135-145) mmol/L Potassium 4.2 (3.5-5.0) mmol/L Chloride 106 (101-111) mmol/L Carbon Dioxide 22 (22-32) mmol/L Anion Gap 9 (2-11) mmol/L BUN 76 H (6-24) mg/dL Creatinine 3.55 H (0.51-0.95) mg/dL Est GFR ( Amer) 14.7 (>60) Est GFR (Non-Af Amer) 12.2 (>60) BUN/Creatinine Ratio 21.4 H (8-20) Glucose 88 (70-100) mg/dL Calcium 10.0 (8.6-10.3) mg/dL Total Bilirubin 0.30 (0.2-1.0) mg/dL AST 9 L (13-39) U/L ALT 7 (7-52) U/L Alkaline Phosphatase 76 (34-104) U/L Troponin I 0.03 (<0.04) ng/mL Total Protein 6.6 (6.4-8.9) g/dL Albumin 3.6 (3.2-5.2) g/dL Globulin 3.0 (2-4) g/dL Albumin/Globulin Ratio 1.2 (1-3) Microbiology and Other Data: Microbiology 06/26/19 06:51 Skin and Soft Tissue MRSA/MSSA (PCR - Final Axilla Left Mrsa Negative S.aureus Negative Gram Stain - Final Assess/Plan/Problems-Billing Assessment: - Patient Problems (1) NSTEMI (non-ST elevated myocardial infarction) Current Visit: Yes Status: Acute Code(s): I21.4 - NON-ST ELEVATION (NSTEMI) MYOCARDIAL INFARCTION SNOMED Code(s): 13467351 Comment: Medical management Appreciate Cardiology input Heparin drip X 48 hours. Plavix 1 year, Aspirin,Toprol Not on LANDON in setting of advanced CKD EF 30-35% (2) Anemia Current Visit: Yes Status: Acute Code(s): D64.9 - ANEMIA, UNSPECIFIED SNOMED Code(s): 427710053 Comment: iron studies,b12,folate are normal. Epo if warranted beyond 48-72h of [place] Cardiology/Dr Sathish veloz with Epo One dose epogen today. (3) CKD (chronic kidney disease) Current Visit: Yes Status: Acute Code(s): N18.9 - CHRONIC KIDNEY DISEASE, UNSPECIFIED SNOMED Code(s): 645558557 Comment: will monitor follows with nephrology in [place]. Does not want dialysis if situation worsens (4) CHF (congestive heart failure) Current Visit: Yes Status: Acute Code(s): I50.9 - HEART FAILURE, UNSPECIFIED SNOMED Code(s): 70398363 Comment: EF 30-35% Continue lasix, beta gabrielle (5) Renal mass Current Visit: Yes Status: Acute Code(s): N28.89 - OTHER SPECIFIED DISORDERS OF KIDNEY AND URETER SNOMED Code(s): 232972612 Comment: 5.2 cm R renal mass likely renal cell carcinoma noted February 2019 Pt did not want any work up (6) Axillary abscess Current Visit: Yes Status: Acute Code(s): L02.419 - CUTANEOUS ABSCESS OF LIMB, UNSPECIFIED SNOMED Code(s): 35312474 Comment: on cefazolin Status and Disposition: from [facility]
[2019-06-29 12:23] LABS: Troponin I 1.11 ng/mL (<0.04)
[2019-06-29] MEDS ORDERED: Acetaminophen TAB* 325 MG PO PRN (15:05)
--- NOTE | 2019-06-29 18:03 | PN ---
Subjective Date of Service: 06/29/19 Interval History: f/u NSTEMI Patient had 30 minutes of chest discomfort similar to presenting symptoms and dyspnea this morning. It self resolved. EKG showed slightly more prominent st changes, troponin continues to trend down patient has no chest discomfort currently she has ambulated today without symptoms. toprol dose was increased to 150 mg po this am and imdur 60 mg added. she has no headache and is tolerating well breathing at baseline tele no arrhythmias Medications Active Medications: Acetaminophen (Tylenol Tab*) 650 mg PO TID PRN PRN Reason: MILD PAIN or TEMP > 100.4 Al Hydrox/Mg Hydrox/Simethicone (Maalox Plus*) 30 ml PO Q6H PRN PRN Reason: INDIGESTION Albuterol/Ipratropium (Duoneb (Albuterol 2.5 Mg/Ipratropium 0.5 Mg)) 1 neb INH Q4HR PRN PRN Reason: WHEEZING Amlodipine Besylate (Norvasc Tab*) 10 mg PO DAILY [facility] Last Admin: 06/29/19 08:00 Dose: 10 mg Aspirin (Aspirin 81 Mg Chew Tab*) 81 mg PO DAILY [facility] Last Admin: 06/29/19 08:00 Dose: 81 mg Calcitriol (Rocaltrol Cap*) 0.25 mcg PO MoTh@0900 [facility] Last Admin: 06/29/19 09:17 Dose: 0.25 mcg Calcium Carbonate (Tums*) 500 mg PO Q4H PRN PRN Reason: INDIGESTION Cholecalciferol (Vitamin D Tab*) 1,000 units PO EVERY OTHER DAY [facility] Last Admin: 06/28/19 09:12 Dose: 1,000 units Clopidogrel Bisulfate (Plavix Tab*) 75 mg PO DAILY [facility] Last Admin: 06/29/19 07:59 Dose: 75 mg Dextrose (Dextrose 50% Vial 50 Ml*) 25 ml IV PUSH .FOR FS < 60 - SS PRN PRN Reason: FS < 60 Docusate Sodium (Colace Cap*) 100 mg PO BID [facility] Last Admin: 06/29/19 07:58 Dose: 100 mg Doxazosin Mesylate (Cardura Tab*) 2 mg PO BEDTIME [facility] Last Admin: 06/28/19 21:54 Dose: 2 mg Furosemide (Lasix Tab*) 40 mg PO BID [facility] Last Admin: 06/29/19 07:59 Dose: 40 mg Heparin Sodium (Porcine) (Heparin Vial(*)) 5,000 units SUBCUT Q8HR [facility] Last Admin: 06/29/19 13:40 Dose: 5,000 units Hydralazine HCl (Apresoline Tab*) 75 mg PO TID [facility] Last Admin: 06/29/19 13:40 Dose: 75 mg Cefazolin Sodium 1 gm/ Sodium (Chloride) 50 mls @ 200 mls/hr IVPB Q12H [facility] Last Admin: 06/29/19 07:55 Dose: 200 mls/hr Insulin Human Lispro (Humalog*) 0 units SUBCUT ACHS [facility]; Protocol Last Admin: 06/29/19 13:39 Dose: 1 units Isosorbide Mononitrate (Imdur Er Tab*) 60 mg PO DAILY [facility] Last Admin: 06/29/19 09:14 Dose: 60 mg Loperamide HCl (Imodium Cap*) 2 mg PO DAILY PRN PRN Reason: DIARRHEA Metoprolol Succinate (Toprol Xl Tab*) 150 mg PO DAILY [facility] Last Admin: 06/29/19 09:14 Dose: 150 mg Nitroglycerin (Nitroglycerin Tab 0.4 Mg*) 0.4 mg SL Q5M PRN PRN Reason: ANGINA Ondansetron HCl (Zofran Tab*) 4 mg PO Q6H PRN PRN Reason: NAUSEA Pantoprazole Sodium (Protonix Tab*) 40 mg PO DAILY [facility] Last Admin: 06/29/19 08:00 Dose: 40 mg Polyethylene Glycol/Electrolytes (Miralax*) 17 gm PO DAILY PRN PRN Reason: CONSTIPATION Last Admin: 06/29/19 07:54 Dose: 17 gm Senna (Senokot Tab*) 1 tab PO BID [facility] Last Admin: 06/29/19 08:00 Dose: 1 tab Tramadol HCl (Ultram*) 75 mg PO BEDTIME [facility] Last Admin: 06/28/19 21:54 Dose: 75 mg Tramadol HCl (Ultram*) 50 mg PO Q8H PRN PRN Reason: PAIN - MODERATE Objective Vital Signs: Temp Pulse Resp BP Pulse Ox 98.6 F 62 16 146/48 100 06/29/19 11:45 06/29/19 11:45 06/29/19 11:45 06/29/19 11:45 06/29/19 11:45 Oxygen Devices in Use Now: None Appearance: obese, pleasant, nad Ears/Nose/Mouth/Throat: Clear Oropharnyx, Mucous Membranes Moist Neck: NL Appearance and Movements; NL JVP, Trachea Midline Respiratory: Symmetrical Chest Expansion and Respiratory Effort, - - distant breath sounds Cardiovascular: RRR, - - distant, no significant murmur Abdominal: - - soft, obese Extremities: No Clubbing, Cyanosis, - - mild edema Skin: No Rash or Ulcers Neurological: - - awake and alert Laboratory Results: 06/29/19 05:01 06/29/19 05:01 INR (Anticoag Therapy) 1.04 (0.82-1.09) 06/26/19 05:51 APTT 87.0 seconds (26.0-38.0) H 06/28/19 07:44 Total Bilirubin 0.30 mg/dL (0.2-1.0) 06/26/19 05:51 AST 9 U/L (13-39) L 06/26/19 05:51 ALT 7 U/L (7-52) 06/26/19 05:51 Alkaline Phosphatase 76 U/L (34-104) 06/26/19 05:51 CK-MB (CK-2) 8.3 ng/mL (0.6-6.3) H 06/27/19 05:40 B-Natriuretic Peptide 592 pg/mL (<=100) H 06/26/19 05:44 Total Protein 6.6 g/dL (6.4-8.9) 06/26/19 05:51 Albumin 3.6 g/dL (3.2-5.2) 06/26/19 05:51 Globulin 3.0 g/dL (2-4) 06/26/19 05:51 Albumin/Globulin Ratio 1.2 (1-3) 06/26/19 05:51 06/26/19 06/26/19 06/26/19 05:51 08:27 11:55 Troponin I 0.03 0.80 H* 3.47 H* 06/26/19 06/26/19 06/26/19 15:55 20:10 23:50 Troponin I 5.53 H* 6.05 H* 5.29 H* 06/29/19 06/29/19 06/29/19 05:01 08:33 11:52 Troponin I 1.29 H* 1.15 H* 1.11 H* Diagnostic Imaging: Transthoracic Echocardiogram Study Date: 06/26/2019 Conclusions Summary: - Left ventricle: The cavity size is normal. Wall thickness is normal. Systolic function is moderately reduced. The estimated ejection fraction is 30-35%. - Right ventricle: The cavity size is normal. Systolic function is mildly reduced. - Mitral valve: There is mild to moderate regurgitation. - Pulmonary arteries: Systolic pressure is moderately increased. T Exam Date: 06/26/19 CHEST AP OR PORT IMPRESSION: FINDINGS SUGGESTIVE OF MILD CONGESTIVE HEART FAILURE. EKG Data: ekg 06/26/2019 initial NSR 82 bpm, ischemic downsloping ST depression inferior, v3-v6 and 1/aVL ekg repeat: NSr, markedly improvement of st changes to baseline of 02/28/2019 ekg Assessment/Plan 1. NSTEMI - enzymatically small infarct - LVEF 30-35%, stable from prior 2. Anemia 3. Known systolic dysfunction LVEF of 30% to 35% documented in February 2019 4. History of 5.2 cm right renal mass, likely renal cell carcinoma documented in February 2019, for which the patient declined to have further evaluation. 5. History of advanced chronic kidney disease, patient would not want dialysis 6. History of diabetes type 2. - Continue aspirin 81 mg po daily - Continue plavix 75 mg po daily for 1 year if tolerated - continue bp/antianginal toprol 150 mg po daily - Continue bp/anti-anginal amlodipine 10 mg (LVEF noted) - Continue lasix - continue hydralazine 75 mg po tid - Continue bp/antianginal imdur 60 mg po daily. Can increase dose if recurrent angina and/or BP remains elevated - Not on acei/arb due to renal failure - Statin intolerant - Add PRN SL NTG (ordered) - Anemia treatment/erythropoetin (I am not opposed in this particular situation ) as per Hospitalist/Nephrology If patient remains asymptomatic can be discharged 06/30/2019 from a cardiac standpoint Thank you for allowing me to participate in the cardiovascular care of this patient. Please do not hesitate to contact me with questions or concerns.
[2019-06-29] MEDS: traMADol TAB* 50 MG PO SCH (22:44)
[2019-06-29] MEDS: Doxazosin TAB* 2 MG PO SCH (22:47)
[2019-06-30] MEDS: Heparin VIAL(*) 5000 UNITS/ML VIAL (FIVE THOUSAND) SUBCUT SCH ×3 (05:10→21:35)
[2019-06-30 06:14] LABS: ABS Eosinophils 0.2 10^3/ul (0-0.6); ABS Monocytes 0.7 10^3/ul (0-0.8); ABS Neutrophils 4.1 10^3/ul (1.5-7.7); Eosinophil % 2.9 %; Hematocrit 21 % (35-47); Hemoglobin 7.2 g/dL (12.0-16.0); Lymphocyte % 16.3 %; Mean Corpuscular HGB Conc 34 g/dL (31-36); Mean Corpuscular Hemoglobin 31 pg (27-31); Mean Corpuscular Volume 92 fL (80-97); Mean Platelet Volume 8.1 fL (7.4-10.4); Platelet Count 171 10^3/uL (150-450); Red Blood Count 2.31 10^6 /uL (3.70-4.87); Red Cell Distribution Width 15 % (10-15); White Blood Count 5.9 10^3/uL (3.5-10.8)
[2019-06-30] MEDS: Nitroglycerin TAB 0.4 MG* 0.4 MG TAB SL PRN ×2 (07:46→07:53)
[2019-06-30] MEDS: Insulin LISPRO* 1 UNITS UNIT SUBCUT SCH ×4 (07:47→21:00)
[2019-06-30] MEDS: ceFAZolin 1 GM ADVAN(*) 1 GM in NS 0.9% 50 ML* 50 ML IVPB SCH ×2 (07:47→21:27)
[2019-06-30] MEDS: Polyethylene Glycol 3350* 17 GM PACKET PO PRN (07:50)
[2019-06-30] MEDS: Aspirin 81 mg CHEW TAB* 81 MG TAB.CHEW PO SCH (07:55)
[2019-06-30] MEDS: Docusate CAP* 100 MG PO SCH ×2 (07:55→21:35)
[2019-06-30] MEDS: Senna TAB 8.6 mg* TAB PO SCH ×2 (07:55→21:34)
[2019-06-30] MEDS: Clopidogrel TAB* 75 MG PO SCH (07:56)
[2019-06-30] MEDS: Pantoprazole TAB * 40 MG TAB PO SCH (07:56)
[2019-06-30] MEDS: Cholecalciferol TAB* 1000 UNITS PO SCH (07:56)
[2019-06-30] MEDS ORDERED: Sodium Phosphate ADULT ENEMA* 118 ml bottle PR ONE (10:08)
--- NOTE | 2019-06-30 10:46 | PN ---
Subjective Date of Service: 06/30/19 Interval History: No acute issues overnight This morning was having chest pain, relieved by nitroglycerin Having constipation, yesterday nurse did manual evacuation. Now having nausea, and abdominal pain. Objective Active Medications: Acetaminophen (Tylenol Tab*) 650 mg PO TID PRN PRN Reason: MILD PAIN or TEMP > 100.4 Al Hydrox/Mg Hydrox/Simethicone (Maalox Plus*) 30 ml PO Q6H PRN PRN Reason: INDIGESTION Albuterol/Ipratropium (Duoneb (Albuterol 2.5 Mg/Ipratropium 0.5 Mg)) 1 neb INH Q4HR PRN PRN Reason: WHEEZING Amlodipine Besylate (Norvasc Tab*) 10 mg PO DAILY [facility] Last Admin: 06/29/19 08:00 Dose: 10 mg Aspirin (Aspirin 81 Mg Chew Tab*) 81 mg PO DAILY [facility] Last Admin: 06/30/19 07:55 Dose: 81 mg Calcitriol (Rocaltrol Cap*) 0.25 mcg PO MoTh@0900 [facility] Last Admin: 06/29/19 09:17 Dose: 0.25 mcg Calcium Carbonate (Tums*) 500 mg PO Q4H PRN PRN Reason: INDIGESTION Cholecalciferol (Vitamin D Tab*) 1,000 units PO EVERY OTHER DAY [facility] Last Admin: 06/30/19 07:56 Dose: 1,000 units Clopidogrel Bisulfate (Plavix Tab*) 75 mg PO DAILY [facility] Last Admin: 06/30/19 07:56 Dose: 75 mg Dextrose (Dextrose 50% Vial 50 Ml*) 25 ml IV PUSH .FOR FS < 60 - SS PRN PRN Reason: FS < 60 Docusate Sodium (Colace Cap*) 100 mg PO BID [facility] Last Admin: 06/30/19 07:55 Dose: 100 mg Doxazosin Mesylate (Cardura Tab*) 2 mg PO BEDTIME [facility] Last Admin: 06/29/19 22:47 Dose: 2 mg Furosemide (Lasix Tab*) 40 mg PO BID [facility] Last Admin: 06/29/19 22:46 Dose: 40 mg Heparin Sodium (Porcine) (Heparin Vial(*)) 5,000 units SUBCUT Q8HR [facility] Last Admin: 06/30/19 05:10 Dose: 5,000 units Hydralazine HCl (Apresoline Tab*) 75 mg PO TID [facility] Last Admin: 06/29/19 22:46 Dose: 75 mg Cefazolin Sodium 1 gm/ Sodium (Chloride) 50 mls @ 200 mls/hr IVPB Q12H [facility] Last Admin: 06/30/19 07:47 Dose: 200 mls/hr Insulin Human Lispro (Humalog*) 0 units SUBCUT ACHS [facility]; Protocol Last Admin: 06/30/19 07:47 Dose: Not Given Isosorbide Mononitrate (Imdur Er Tab*) 60 mg PO DAILY [facility] Last Admin: 06/29/19 09:14 Dose: 60 mg Loperamide HCl (Imodium Cap*) 2 mg PO DAILY PRN PRN Reason: DIARRHEA Metoprolol Succinate (Toprol Xl Tab*) 150 mg PO DAILY [facility] Last Admin: 06/29/19 09:14 Dose: 150 mg Nitroglycerin (Nitroglycerin Tab 0.4 Mg*) 0.4 mg SL Q5M PRN PRN Reason: ANGINA Last Admin: 06/30/19 07:53 Dose: 0.4 mg Ondansetron HCl (Zofran Tab*) 4 mg PO Q6H PRN PRN Reason: NAUSEA Pantoprazole Sodium (Protonix Tab*) 40 mg PO DAILY [facility] Last Admin: 06/30/19 07:56 Dose: 40 mg Polyethylene Glycol/Electrolytes (Miralax*) 17 gm PO DAILY PRN PRN Reason: CONSTIPATION Last Admin: 06/30/19 07:50 Dose: 17 gm Senna (Senokot Tab*) 1 tab PO BID [facility] Last Admin: 06/30/19 07:55 Dose: 1 tab Tramadol HCl (Ultram*) 75 mg PO BEDTIME [facility] Last Admin: 06/29/19 22:44 Dose: 75 mg Tramadol HCl (Ultram*) 50 mg PO Q8H PRN PRN Reason: PAIN - MODERATE Vital Signs - 8 hr 06/30/19 06/30/19 06/30/19 04:25 07:48 07:52 Temperature 98.6 F 98.8 F Pulse Rate 80 82 Respiratory 16 16 Rate Blood Pressure 140/49 142/53 144/62 (mmHg) O2 Sat by Pulse 98 99 Oximetry Oxygen Devices in Use Now: None Appearance: Elderly female, lying in bed, not in distress Ears/Nose/Mouth/Throat: Mucous Membranes Moist Respiratory: Symmetrical Chest Expansion and Respiratory Effort, Clear to Auscultation Cardiovascular: NL Sounds; No Murmurs; No JVD, RRR Abdominal: NL Sounds; No Tenderness; No Distention, No Hepatosplenomegaly Neurological: Alert and Oriented x 3 Result Diagrams: 06/30/19 05:24 06/29/19 05:01 Additional Lab and Data: Lab Results 06/26/19 06/26/19 06/26/19 Range/Units 05:51 05:51 05:51 WBC 6.5 (3.5-10.8) 10^3/uL RBC 2.68 L (3.70-4.87) 10^6 /uL Hgb 8.4 L (12.0-16.0) g/dL Hct 24 L (35-47) % MCV 91 (80-97) fL MCH 31 (27-31) pg MCHC 35 (31-36) g/dL RDW 15 (10-15) % Plt Count 170 (150-450) 10^3/uL MPV 7.7 (7.4-10.4) fL Neut % (Auto) 81.2 % Lymph % (Auto) 10.0 % [place] % (Auto) 6.1 % Eos % (Auto) 1.7 % Baso % (Auto) 1.0 % Absolute Neuts (auto) 5.3 (1.5-7.7) 10^3/ul Absolute Lymphs (auto) 0.7 L (1.0-4.8) 10^3/ul Absolute Monos (auto) 0.4 (0-0.8) 10^3/ul Absolute Eos (auto) 0.1 (0-0.6) 10^3/ul Absolute Basos (auto) 0.1 (0-0.2) 10^3/ul Absolute Nucleated RBC 0.0 10^3/ul Nucleated RBC % 0.0 INR (Anticoag Therapy) 1.04 (0.82-1.09) Sodium 137 (135-145) mmol/L Potassium 4.2 (3.5-5.0) mmol/L Chloride 106 (101-111) mmol/L Carbon Dioxide 22 (22-32) mmol/L Anion Gap 9 (2-11) mmol/L BUN 76 H (6-24) mg/dL Creatinine 3.55 H (0.51-0.95) mg/dL Est GFR ( Amer) 14.7 (>60) Est GFR (Non-Af Amer) 12.2 (>60) BUN/Creatinine Ratio 21.4 H (8-20) Glucose 88 (70-100) mg/dL Calcium 10.0 (8.6-10.3) mg/dL Total Bilirubin 0.30 (0.2-1.0) mg/dL AST 9 L (13-39) U/L ALT 7 (7-52) U/L Alkaline Phosphatase 76 (34-104) U/L Troponin I 0.03 (<0.04) ng/mL Total Protein 6.6 (6.4-8.9) g/dL Albumin 3.6 (3.2-5.2) g/dL Globulin 3.0 (2-4) g/dL Albumin/Globulin Ratio 1.2 (1-3) Microbiology and Other Data: Microbiology 06/26/19 06:51 Skin and Soft Tissue MRSA/MSSA (PCR - Final Axilla Left Mrsa Negative S.aureus Negative Gram Stain - Final Assess/Plan/Problems-Billing Assessment: - Patient Problems (1) NSTEMI (non-ST elevated myocardial infarction) Current Visit: Yes Status: Acute Code(s): I21.4 - NON-ST ELEVATION (NSTEMI) MYOCARDIAL INFARCTION SNOMED Code(s): 39197203 Comment: Medical management Appreciate Cardiology input Heparin drip X 48 hours. Plavix 1 year, Aspirin,Toprol, imdur, hydralazine Not on LANDON in setting of advanced CKD EF 30-35% (2) Anemia Current Visit: Yes Status: Acute Code(s): D64.9 - ANEMIA, UNSPECIFIED SNOMED Code(s): 258254884 Comment: iron studies,b12,folate are normal. Epo if warranted beyond 48-72h of [place] Cardiology/Dr Sathish veloz with Epo One dose epogen 06/29/19 (3) CKD (chronic kidney disease) Current Visit: Yes Status: Acute Code(s): N18.9 - CHRONIC KIDNEY DISEASE, UNSPECIFIED SNOMED Code(s): 138479755 Comment: will monitor follows with nephrology in [place]. Does not want dialysis if situation worsens (4) CHF (congestive heart failure) Current Visit: Yes Status: Acute Code(s): I50.9 - HEART FAILURE, UNSPECIFIED SNOMED Code(s): 19412005 Comment: EF 30-35% Continue lasix, beta gabrielle, imdur, hydralazine (5) Renal mass Current Visit: Yes Status: Acute Code(s): N28.89 - OTHER SPECIFIED DISORDERS OF KIDNEY AND URETER SNOMED Code(s): 928962626 Comment: 5.2 cm R renal mass likely renal cell carcinoma noted February 2019 Pt did not want any work up (6) Axillary abscess Current Visit: Yes Status: Acute Code(s): L02.419 - CUTANEOUS ABSCESS OF LIMB, UNSPECIFIED SNOMED Code(s): 64632021 Comment: on cefazolin (7) Constipation Current Visit: Yes Status: Acute Code(s): K59.00 - CONSTIPATION, UNSPECIFIED SNOMED Code(s): 44106260 Comment: on bowel regimen will get CT abdomen, unfortunately no contrast due to CKD. (8) DVT prophylaxis Current Visit: Yes Status: Acute Code(s): Z29.9 - ENCOUNTER FOR PROPHYLACTIC MEASURES, UNSPECIFIED SNOMED Code(s): 857798877 Comment: Heparin subQ Status and Disposition: from [facility]
[2019-06-30] MEDS: Metoprolol Succinate XL TAB* 50 MG PO SCH (11:14)
[2019-06-30] MEDS: Furosemide TAB* 40 MG PO SCH ×2 (11:14→21:34)
[2019-06-30] MEDS: amLODIPine TAB* 5 MG PO SCH (11:14)
[2019-06-30] MEDS: Isosorbide Mononitrate ER TAB* 60 MG PO SCH (11:15)
[2019-06-30] MEDS: hydrALAZINE TAB* 25 MG PO SCH ×3 (11:15→21:34)
[2019-06-30] MEDS: traMADol TAB* 50 MG PO SCH (21:33)
[2019-06-30] MEDS: Doxazosin TAB* 2 MG PO SCH (21:34)
[2019-07-01] MEDS: Heparin VIAL(*) 5000 UNITS/ML VIAL (FIVE THOUSAND) SUBCUT SCH ×3 (05:57→22:07)
[2019-07-01 05:58] LABS: ABS Basophils 0.1 10^3/ul (0-0.2); ABS Eosinophils 0.2 10^3/ul (0-0.6); ABS Lymphocytes 1.3 10^3/ul (1.0-4.8); ABS Monocytes 0.5 10^3/ul (0-0.8); ABS Neutrophils 3.4 10^3/ul (1.5-7.7); Eosinophil % 2.9 %; Hematocrit 21 % (35-47); Lymphocyte % 23.9 %; Mean Corpuscular HGB Conc 34 g/dL (31-36); Mean Corpuscular Hemoglobin 31 pg (27-31); Mean Corpuscular Volume 92 fL (80-97); Mean Platelet Volume 8.1 fL (7.4-10.4); Platelet Count 173 10^3/uL (150-450); Red Blood Count 2.24 10^6 /uL (3.70-4.87); Red Cell Distribution Width 15 % (10-15); White Blood Count 5.4 10^3/uL (3.5-10.8)
[2019-07-01 06:14] LABS: ALT < 3 U/L (7-52); AST 16 U/L (13-39); Albumin 3.2 g/dL (3.2-5.2); Albumin/Globulin Ratio 1.2 (1-3); Alkaline Phosphatase 60 U/L (34-104); Anion Gap 9 mmol/L (2-11); BUN/Creatinine Ratio 19.2 (8-20); Blood Urea Nitrogen 70 mg/dL (6-24); CO2 Carbon Dioxide 23 mmol/L (22-32); Calcium 9.5 mg/dL (8.6-10.3); Chloride 105 mmol/L (101-111); EGFR African American 14.3 (>60); EGFR Non-African American 11.8 (>60); Globulin 2.7 g/dL (2-4); Glucose 93 mg/dL (70-100); Potassium 4.6 mmol/L (3.5-5.0); Sodium 137 mmol/L (135-145); Total Protein 5.9 g/dL (6.4-8.9)
[2019-07-01 07:27] LABS: Erythrocyte Sed Rate 85 mm/Hr (0-29)
[2019-07-01] MEDS: Insulin LISPRO* 1 UNITS UNIT SUBCUT SCH ×4 (08:28→22:07)
[2019-07-01] MEDS: ceFAZolin 1 GM ADVAN(*) 1 GM in NS 0.9% 50 ML* 50 ML IVPB SCH ×2 (10:09→21:59)
[2019-07-01] MEDS: Metoprolol Succinate XL TAB* 50 MG PO SCH (10:14)
[2019-07-01] MEDS: Furosemide TAB* 40 MG PO SCH ×2 (10:15→22:04)
[2019-07-01] MEDS: Docusate CAP* 100 MG PO SCH ×2 (10:15→22:05)
[2019-07-01] MEDS: Clopidogrel TAB* 75 MG PO SCH (10:15)
[2019-07-01] MEDS: Aspirin 81 mg CHEW TAB* 81 MG TAB.CHEW PO SCH (10:15)
[2019-07-01] MEDS: Isosorbide Mononitrate ER TAB* 60 MG PO SCH (10:15)
[2019-07-01] MEDS: Senna TAB 8.6 mg* TAB PO SCH ×2 (10:15→22:05)
[2019-07-01] MEDS: hydrALAZINE TAB* 25 MG PO SCH ×3 (10:15→22:03)
[2019-07-01] MEDS: amLODIPine TAB* 5 MG PO SCH (10:15)
[2019-07-01] MEDS: Pantoprazole TAB * 40 MG TAB PO SCH (10:15)
--- NOTE | 2019-07-01 11:17 | PN ---
Subjective Date of Service: 07/01/19 Interval History: Overnight had a BM. This morning reports no acute issues. Has no back pain, no fever, no chills. Objective Active Medications: Acetaminophen (Tylenol Tab*) 650 mg PO TID PRN PRN Reason: MILD PAIN or TEMP > 100.4 Al Hydrox/Mg Hydrox/Simethicone (Maalox Plus*) 30 ml PO Q6H PRN PRN Reason: INDIGESTION Albuterol/Ipratropium (Duoneb (Albuterol 2.5 Mg/Ipratropium 0.5 Mg)) 1 neb INH Q4HR PRN PRN Reason: WHEEZING Amlodipine Besylate (Norvasc Tab*) 10 mg PO DAILY [facility] Last Admin: 07/01/19 10:15 Dose: 10 mg Aspirin (Aspirin 81 Mg Chew Tab*) 81 mg PO DAILY [facility] Last Admin: 07/01/19 10:15 Dose: 81 mg Calcitriol (Rocaltrol Cap*) 0.25 mcg PO MoTh@0900 [facility] Last Admin: 06/29/19 09:17 Dose: 0.25 mcg Calcium Carbonate (Tums*) 500 mg PO Q4H PRN PRN Reason: INDIGESTION Cholecalciferol (Vitamin D Tab*) 1,000 units PO EVERY OTHER DAY [facility] Last Admin: 06/30/19 07:56 Dose: 1,000 units Clopidogrel Bisulfate (Plavix Tab*) 75 mg PO DAILY [facility] Last Admin: 07/01/19 10:15 Dose: 75 mg Dextrose (Dextrose 50% Vial 50 Ml*) 25 ml IV PUSH .FOR FS < 60 - SS PRN PRN Reason: FS < 60 Docusate Sodium (Colace Cap*) 100 mg PO BID [facility] Last Admin: 07/01/19 10:15 Dose: 100 mg Doxazosin Mesylate (Cardura Tab*) 2 mg PO BEDTIME [facility] Last Admin: 06/30/19 21:34 Dose: 2 mg Furosemide (Lasix Tab*) 40 mg PO BID [facility] Last Admin: 07/01/19 10:15 Dose: 40 mg Heparin Sodium (Porcine) (Heparin Vial(*)) 5,000 units SUBCUT Q8HR [facility] Last Admin: 07/01/19 05:57 Dose: 5,000 units Hydralazine HCl (Apresoline Tab*) 75 mg PO TID [facility] Last Admin: 07/01/19 10:15 Dose: 75 mg Cefazolin Sodium 1 gm/ Sodium (Chloride) 50 mls @ 200 mls/hr IVPB Q12H [facility] Last Admin: 07/01/19 10:09 Dose: 200 mls/hr Insulin Human Lispro (Humalog*) 0 units SUBCUT ACHS [facility]; Protocol Last Admin: 07/01/19 08:28 Dose: Not Given Isosorbide Mononitrate (Imdur Er Tab*) 60 mg PO DAILY [facility] Last Admin: 07/01/19 10:15 Dose: 60 mg Loperamide HCl (Imodium Cap*) 2 mg PO DAILY PRN PRN Reason: DIARRHEA Metoprolol Succinate (Toprol Xl Tab*) 150 mg PO DAILY [facility] Last Admin: 07/01/19 10:14 Dose: 150 mg Nitroglycerin (Nitroglycerin Tab 0.4 Mg*) 0.4 mg SL Q5M PRN PRN Reason: ANGINA Last Admin: 06/30/19 07:53 Dose: 0.4 mg Ondansetron HCl (Zofran Tab*) 4 mg PO Q6H PRN PRN Reason: NAUSEA Pantoprazole Sodium (Protonix Tab*) 40 mg PO DAILY [facility] Last Admin: 07/01/19 10:15 Dose: 40 mg Polyethylene Glycol/Electrolytes (Miralax*) 17 gm PO DAILY PRN PRN Reason: CONSTIPATION Last Admin: 06/30/19 07:50 Dose: 17 gm Senna (Senokot Tab*) 1 tab PO BID [facility] Last Admin: 07/01/19 10:15 Dose: 1 tab Tramadol HCl (Ultram*) 75 mg PO BEDTIME [facility] Last Admin: 06/30/19 21:33 Dose: 75 mg Tramadol HCl (Ultram*) 50 mg PO Q8H PRN PRN Reason: PAIN - MODERATE Vital Signs - 8 hr 07/01/19 07/01/19 04:18 07:45 Temperature 97.9 F 99 F Pulse Rate 72 71 Respiratory 16 20 Rate Blood Pressure 133/43 150/50 (mmHg) O2 Sat by Pulse 97 98 Oximetry Oxygen Devices in Use Now: None Appearance: Elderly female sitting on chair, not in distress Eyes: PERRLA Ears/Nose/Mouth/Throat: Mucous Membranes Moist Respiratory: Symmetrical Chest Expansion and Respiratory Effort, Clear to Auscultation Cardiovascular: RRR, No Edema Abdominal: NL Sounds; No Tenderness; No Distention, No Hepatosplenomegaly Extremities: No Edema Neurological: Alert and Oriented x 3 Result Diagrams: 07/01/19 05:34 07/01/19 05:34 Additional Lab and Data: Lab Results 06/26/19 06/26/19 06/26/19 Range/Units 05:51 05:51 05:51 WBC 6.5 (3.5-10.8) 10^3/uL RBC 2.68 L (3.70-4.87) 10^6 /uL Hgb 8.4 L (12.0-16.0) g/dL Hct 24 L (35-47) % MCV 91 (80-97) fL MCH 31 (27-31) pg MCHC 35 (31-36) g/dL RDW 15 (10-15) % Plt Count 170 (150-450) 10^3/uL MPV 7.7 (7.4-10.4) fL Neut % (Auto) 81.2 % Lymph % (Auto) 10.0 % [place] % (Auto) 6.1 % Eos % (Auto) 1.7 % Baso % (Auto) 1.0 % Absolute Neuts (auto) 5.3 (1.5-7.7) 10^3/ul Absolute Lymphs (auto) 0.7 L (1.0-4.8) 10^3/ul Absolute Monos (auto) 0.4 (0-0.8) 10^3/ul Absolute Eos (auto) 0.1 (0-0.6) 10^3/ul Absolute Basos (auto) 0.1 (0-0.2) 10^3/ul Absolute Nucleated RBC 0.0 10^3/ul Nucleated RBC % 0.0 INR (Anticoag Therapy) 1.04 (0.82-1.09) Sodium 137 (135-145) mmol/L Potassium 4.2 (3.5-5.0) mmol/L Chloride 106 (101-111) mmol/L Carbon Dioxide 22 (22-32) mmol/L Anion Gap 9 (2-11) mmol/L BUN 76 H (6-24) mg/dL Creatinine 3.55 H (0.51-0.95) mg/dL Est GFR ( Amer) 14.7 (>60) Est GFR (Non-Af Amer) 12.2 (>60) BUN/Creatinine Ratio 21.4 H (8-20) Glucose 88 (70-100) mg/dL Calcium 10.0 (8.6-10.3) mg/dL Total Bilirubin 0.30 (0.2-1.0) mg/dL AST 9 L (13-39) U/L ALT 7 (7-52) U/L Alkaline Phosphatase 76 (34-104) U/L Troponin I 0.03 (<0.04) ng/mL Total Protein 6.6 (6.4-8.9) g/dL Albumin 3.6 (3.2-5.2) g/dL Globulin 3.0 (2-4) g/dL Albumin/Globulin Ratio 1.2 (1-3) Microbiology and Other Data: Microbiology 06/26/19 06:51 Skin and Soft Tissue MRSA/MSSA (PCR - Final Axilla Left Mrsa Negative S.aureus Negative Gram Stain - Final Assess/Plan/Problems-Billing Assessment: - Patient Problems (1) NSTEMI (non-ST elevated myocardial infarction) Current Visit: Yes Status: Acute Code(s): I21.4 - NON-ST ELEVATION (NSTEMI) MYOCARDIAL INFARCTION SNOMED Code(s): 48099731 Comment: Medical management Appreciate Cardiology input Heparin drip X 48 hours. Plavix 1 year, Aspirin,Toprol, imdur, hydralazine Not on LANDON in setting of advanced CKD EF 30-35% (2) Anemia Current Visit: Yes Status: Acute Code(s): D64.9 - ANEMIA, UNSPECIFIED SNOMED Code(s): 124441928 Comment: iron studies,b12,folate are normal. Epo if warranted beyond 48-72h of [place] Cardiology/Dr Sathish veloz with Epo One dose epogen 06/29/19 (3) CKD (chronic kidney disease) Current Visit: Yes Status: Acute Code(s): N18.9 - CHRONIC KIDNEY DISEASE, UNSPECIFIED SNOMED Code(s): 785423175 Comment: will monitor follows with nephrology in [place]. Does not want dialysis if situation worsens (4) CHF (congestive heart failure) Current Visit: Yes Status: Acute Code(s): I50.9 - HEART FAILURE, UNSPECIFIED SNOMED Code(s): 53550549 Comment: EF 30-35% Continue lasix, beta gabrielle, imdur, hydralazine (5) Renal mass Current Visit: Yes Status: Acute Code(s): N28.89 - OTHER SPECIFIED DISORDERS OF KIDNEY AND URETER SNOMED Code(s): 658084869 Comment: 5.2 cm R renal mass likely renal cell carcinoma noted February 2019 Pt did not want any work up (6) Axillary abscess Current Visit: Yes Status: Acute Code(s): L02.419 - CUTANEOUS ABSCESS OF LIMB, UNSPECIFIED SNOMED Code(s): 29982146 Comment: on cefazolin (7) Constipation Current Visit: Yes Status: Acute Code(s): K59.00 - CONSTIPATION, UNSPECIFIED SNOMED Code(s): 39639767 Comment: on bowel regimen will get CT abdomen, unfortunately no contrast due to CKD. (8) DVT prophylaxis Current Visit: Yes Status: Acute Code(s): Z29.9 - ENCOUNTER FOR PROPHYLACTIC MEASURES, UNSPECIFIED SNOMED Code(s): 651215086 Comment: Heparin subQ (9) Renal cyst, [place], hemorrhage Current Visit: Yes Status: Acute Code(s): N28.89 - OTHER SPECIFIED DISORDERS OF KIDNEY AND URETER; N28.1 - CYST OF KIDNEY, ACQUIRED SNOMED Code(s ): 78039246 Comment: hemorrhagic renal cyst noted on CT abdomen, will get ultrasound to further evaluate. consider urology eval (10) Abnormal CT scan, lumbar spine Current Visit: Yes Status: Acute Code(s): R93.7 - ABNORMAL FINDINGS ON DIAGNOSTIC IMAGING OF PRT MS SYS SNOMED Code(s): 099081229 Comment: abnormal Lumbar spine seen on CT- possible osteomyelitis. getting MRI Lspine, given elevated ESR getting blood cultures hold off on abx, as no fever, no leukocytosis Status and Disposition: from [facility]
[2019-07-01] MEDS: traMADol TAB* 50 MG PO SCH (22:04)
[2019-07-01] MEDS: Doxazosin TAB* 2 MG PO SCH (22:05)
[2019-07-02 06:08] LABS: Hematocrit 20 % (35-47); Mean Corpuscular HGB Conc 35 g/dL (31-36); Mean Corpuscular Hemoglobin 32 pg (27-31); Mean Corpuscular Volume 92 fL (80-97); Mean Platelet Volume 8.2 fL (7.4-10.4); Platelet Count 174 10^3/uL (150-450); Red Blood Count 2.22 10^6 /uL (3.70-4.87); Red Cell Distribution Width 15 % (10-15); White Blood Count 5.4 10^3/uL (3.5-10.8)
[2019-07-02] MEDS: Heparin VIAL(*) 5000 UNITS/ML VIAL (FIVE THOUSAND) SUBCUT SCH ×3 (06:19→22:10)
[2019-07-02 06:25] LABS: BUN/Creatinine Ratio 17.8 (8-20); Calcium 9.8 mg/dL (8.6-10.3); EGFR African American 13.5 (>60); EGFR Non-African American 11.1 (>60); Potassium 4.3 mmol/L (3.5-5.0)
[2019-07-02] MEDS: Insulin LISPRO* 1 UNITS UNIT SUBCUT SCH ×4 (08:50→22:19)
[2019-07-02] MEDS: ceFAZolin 1 GM ADVAN(*) 1 GM in NS 0.9% 50 ML* 50 ML IVPB SCH ×2 (09:54→22:35)
[2019-07-02] MEDS: Metoprolol Succinate XL TAB* 50 MG PO SCH (10:40)
[2019-07-02] MEDS: Isosorbide Mononitrate ER TAB* 60 MG PO SCH (10:40)
[2019-07-02] MEDS: Pantoprazole TAB * 40 MG TAB PO SCH (10:40)
[2019-07-02] MEDS: Clopidogrel TAB* 75 MG PO SCH (10:40)
[2019-07-02] MEDS: Cholecalciferol TAB* 1000 UNITS PO SCH (10:40)
[2019-07-02] MEDS: amLODIPine TAB* 5 MG PO SCH (10:40)
[2019-07-02] MEDS: hydrALAZINE TAB* 25 MG PO SCH ×3 (10:40→22:08)
[2019-07-02] MEDS: Docusate CAP* 100 MG PO SCH ×2 (10:40→22:10)
[2019-07-02] MEDS: Aspirin 81 mg CHEW TAB* 81 MG TAB.CHEW PO SCH (10:41)
[2019-07-02] MEDS: Senna TAB 8.6 mg* TAB PO SCH ×2 (10:41→22:09)
[2019-07-02] MEDS: Furosemide TAB* 40 MG PO SCH ×2 (10:41→22:10)
[2019-07-02] MEDS: Calcitriol CAP* 0.25 MCG PO SCH (12:11)
--- NOTE | 2019-07-02 13:42 | PN ---
Subjective Date of Service: 07/02/19 Interval History: Pt feels weak and lightheaded Objective Active Medications: Acetaminophen (Tylenol Tab*) 650 mg PO TID PRN PRN Reason: MILD PAIN or TEMP > 100.4 Al Hydrox/Mg Hydrox/Simethicone (Maalox Plus*) 30 ml PO Q6H PRN PRN Reason: INDIGESTION Albuterol/Ipratropium (Duoneb (Albuterol 2.5 Mg/Ipratropium 0.5 Mg)) 1 neb INH Q4HR PRN PRN Reason: WHEEZING Amlodipine Besylate (Norvasc Tab*) 10 mg PO DAILY [facility] Last Admin: 07/02/19 10:40 Dose: 10 mg Aspirin (Aspirin 81 Mg Chew Tab*) 81 mg PO DAILY [facility] Last Admin: 07/02/19 10:41 Dose: 81 mg Calcitriol (Rocaltrol Cap*) 0.25 mcg PO MoTh@0900 [facility] Last Admin: 07/02/19 12:11 Dose: 0.25 mcg Calcium Carbonate (Tums*) 500 mg PO Q4H PRN PRN Reason: INDIGESTION Cholecalciferol (Vitamin D Tab*) 1,000 units PO EVERY OTHER DAY [facility] Last Admin: 07/02/19 10:40 Dose: 1,000 units Clopidogrel Bisulfate (Plavix Tab*) 75 mg PO DAILY [facility] Last Admin: 07/02/19 10:40 Dose: 75 mg Dextrose (Dextrose 50% Vial 50 Ml*) 25 ml IV PUSH .FOR FS < 60 - SS PRN PRN Reason: FS < 60 Docusate Sodium (Colace Cap*) 100 mg PO BID [facility] Last Admin: 07/02/19 10:40 Dose: 100 mg Doxazosin Mesylate (Cardura Tab*) 2 mg PO BEDTIME [facility] Last Admin: 07/01/19 22:05 Dose: 2 mg Furosemide (Lasix Tab*) 40 mg PO BID [facility] Last Admin: 07/02/19 10:41 Dose: 40 mg Heparin Sodium (Porcine) (Heparin Vial(*)) 5,000 units SUBCUT Q8HR [facility] Last Admin: 07/02/19 06:19 Dose: 5,000 units Hydralazine HCl (Apresoline Tab*) 75 mg PO TID [facility] Last Admin: 07/02/19 10:40 Dose: 75 mg Cefazolin Sodium 1 gm/ Sodium (Chloride) 50 mls @ 200 mls/hr IVPB Q12H [facility] Last Admin: 07/02/19 09:54 Dose: 200 mls/hr Insulin Human Lispro (Humalog*) 0 units SUBCUT ACHS [facility]; Protocol Last Admin: 07/02/19 08:50 Dose: Not Given Isosorbide Mononitrate (Imdur Er Tab*) 60 mg PO DAILY [facility] Last Admin: 07/02/19 10:40 Dose: 60 mg Loperamide HCl (Imodium Cap*) 2 mg PO DAILY PRN PRN Reason: DIARRHEA Metoprolol Succinate (Toprol Xl Tab*) 150 mg PO DAILY [facility] Last Admin: 07/02/19 10:40 Dose: 150 mg Nitroglycerin (Nitroglycerin Tab 0.4 Mg*) 0.4 mg SL Q5M PRN PRN Reason: ANGINA Last Admin: 06/30/19 07:53 Dose: 0.4 mg Ondansetron HCl (Zofran Tab*) 4 mg PO Q6H PRN PRN Reason: NAUSEA Pantoprazole Sodium (Protonix Tab*) 40 mg PO DAILY [facility] Last Admin: 07/02/19 10:40 Dose: 40 mg Polyethylene Glycol/Electrolytes (Miralax*) 17 gm PO DAILY PRN PRN Reason: CONSTIPATION Last Admin: 06/30/19 07:50 Dose: 17 gm Senna (Senokot Tab*) 1 tab PO BID [facility] Last Admin: 07/02/19 10:41 Dose: 1 tab Tramadol HCl (Ultram*) 75 mg PO BEDTIME [facility] Last Admin: 07/01/19 22:04 Dose: 75 mg Tramadol HCl (Ultram*) 50 mg PO Q8H PRN PRN Reason: PAIN - MODERATE Vital Signs - 8 hr 07/02/19 07/02/19 07/02/19 08:00 09:00 11:20 Temperature 97.8 F 97.8 F Pulse Rate 70 65 Respiratory 16 16 20 Rate Blood Pressure 135/43 144/42 (mmHg) O2 Sat by Pulse 99 100 Oximetry Oxygen Devices in Use Now: None Appearance: 89 yo F in nAD, aAOx3 Eyes: No Scleral Icterus, PERRLA Ears/Nose/Mouth/Throat: NL Teeth, Lips, Gums, Mucous Membranes Moist Neck: NL Appearance and Movements; NL JVP, Trachea Midline Respiratory: Symmetrical Chest Expansion and Respiratory Effort, Clear to Auscultation Cardiovascular: NL Sounds; No Murmurs; No JVD, RRR Abdominal: NL Sounds; No Tenderness; No Distention Lymphatic: No Cervical Adenopathy Extremities: No Edema, No Clubbing, Cyanosis Skin: No Rash or Ulcers, No Nodules or Sclerosis Neurological: Alert and Oriented x 3, NL Muscle Strength and Tone Result Diagrams: 07/02/19 05:33 07/02/19 05:33 Additional Lab and Data: Lab Results 06/26/19 06/26/19 06/26/19 Range/Units 05:51 05:51 05:51 WBC 6.5 (3.5-10.8) 10^3/uL RBC 2.68 L (3.70-4.87) 10^6 /uL Hgb 8.4 L (12.0-16.0) g/dL Hct 24 L (35-47) % MCV 91 (80-97) fL MCH 31 (27-31) pg MCHC 35 (31-36) g/dL RDW 15 (10-15) % Plt Count 170 (150-450) 10^3/uL MPV 7.7 (7.4-10.4) fL Neut % (Auto) 81.2 % Lymph % (Auto) 10.0 % [place] % (Auto) 6.1 % Eos % (Auto) 1.7 % Baso % (Auto) 1.0 % Absolute Neuts (auto) 5.3 (1.5-7.7) 10^3/ul Absolute Lymphs (auto) 0.7 L (1.0-4.8) 10^3/ul Absolute Monos (auto) 0.4 (0-0.8) 10^3/ul Absolute Eos (auto) 0.1 (0-0.6) 10^3/ul Absolute Basos (auto) 0.1 (0-0.2) 10^3/ul Absolute Nucleated RBC 0.0 10^3/ul Nucleated RBC % 0.0 INR (Anticoag Therapy) 1.04 (0.82-1.09) Sodium 137 (135-145) mmol/L Potassium 4.2 (3.5-5.0) mmol/L Chloride 106 (101-111) mmol/L Carbon Dioxide 22 (22-32) mmol/L Anion Gap 9 (2-11) mmol/L BUN 76 H (6-24) mg/dL Creatinine 3.55 H (0.51-0.95) mg/dL Est GFR ( Amer) 14.7 (>60) Est GFR (Non-Af Amer) 12.2 (>60) BUN/Creatinine Ratio 21.4 H (8-20) Glucose 88 (70-100) mg/dL Calcium 10.0 (8.6-10.3) mg/dL Total Bilirubin 0.30 (0.2-1.0) mg/dL AST 9 L (13-39) U/L ALT 7 (7-52) U/L Alkaline Phosphatase 76 (34-104) U/L Troponin I 0.03 (<0.04) ng/mL Total Protein 6.6 (6.4-8.9) g/dL Albumin 3.6 (3.2-5.2) g/dL Globulin 3.0 (2-4) g/dL Albumin/Globulin Ratio 1.2 (1-3) Microbiology and Other Data: Microbiology 06/26/19 06:51 Skin and Soft Tissue MRSA/MSSA (PCR - Final Axilla Left Mrsa Negative S.aureus Negative Gram Stain - Final Assess/Plan/Problems-Billing Assessment: 89 yo M with h/o renal mass, EF 35% presented with NSTEMI - Patient Problems (1) NSTEMI (non-ST elevated myocardial infarction) Comment: Medical management Appreciate Cardiology input Heparin drip X 48 hours. Plavix 1 year, Aspirin,Toprol, imdur, hydralazine Not on L[place]ON in setting of advanced CKD EF 30-35% (2) Abnormal CT scan, lumbar spine Comment: abnormal Lumbar spine seen on CTwith MRI showing L2 mass-likely hemoangioma, but malignancy cannot be r/o, and severe L4-L5 sinal stenosis blood cultures so far neg no fever, no leukocytosis (3) Renal cysts, acquired, bilateral Comment: ? hemorrhagic as per CT report, but as per d/w radiologist on 07/02/19 cysts are unchanged from 03/13 and filled with likley proteinous material, or blood. but once again they have not changed for several months (4) Anemia Comment: iron studies,b12,folate are normal. Epo if warranted beyond 48-72h of [place] Cardiology/Dr Sathish veloz with Epo One dose epogen 06/29/19 today feels lightheaded and Hb still low. will transfuse 1 U PRBC (5) Axillary abscess Comment: on cefazolin (6) CHF (congestive heart failure) Comment: EF 30-35%, euvolemic today Continue lasix, beta gabrielle, imdur, hydralazine (7) CKD (chronic kidney disease) Comment: will monitor follows with nephrology in [place]. Does not want dialysis if situation worsens (8) Constipation Comment: on bowel regimen (9) Renal mass Comment: 5.2 cm R renal mass likely renal cell carcinoma noted February 2019 Pt did not want any work up (10) DVT prophylaxis Comment: Heparin subQ Status and Disposition: Inpatient
[2019-07-02] MEDS: Doxazosin TAB* 2 MG PO SCH (22:08)
[2019-07-02] MEDS: traMADol TAB* 50 MG PO SCH (22:09)
[2019-07-03] MEDS: ceFAZolin 1 GM ADVAN(*) 1 GM in NS 0.9% 50 ML* 50 ML IVPB SCH ×2 (02:08→12:35)
[2019-07-03] MEDS: Heparin VIAL(*) 5000 UNITS/ML VIAL (FIVE THOUSAND) SUBCUT SCH ×2 (05:12→12:35)
[2019-07-03] MEDS ORDERED: Furosemide IV* 10 MG/ML 2 ML VIAL (20 MG) IV ONE (08:32)
[2019-07-03] MEDS: Metoprolol Succinate XL TAB* 50 MG PO SCH (08:57)
[2019-07-03] MEDS: Isosorbide Mononitrate ER TAB* 60 MG PO SCH (08:58)
[2019-07-03] MEDS: hydrALAZINE TAB* 25 MG PO SCH ×2 (08:58→12:36)
[2019-07-03] MEDS: Docusate CAP* 100 MG PO SCH (08:58)
[2019-07-03] MEDS: Furosemide TAB* 40 MG PO SCH (08:58)
[2019-07-03] MEDS: Senna TAB 8.6 mg* TAB PO SCH (08:58)
[2019-07-03] MEDS: Insulin LISPRO* 1 UNITS UNIT SUBCUT SCH ×2 (08:58→12:35)
[2019-07-03] MEDS: Aspirin 81 mg CHEW TAB* 81 MG TAB.CHEW PO SCH (08:58)
[2019-07-03] MEDS: Clopidogrel TAB* 75 MG PO SCH (08:58)
[2019-07-03] MEDS: amLODIPine TAB* 5 MG PO SCH (08:58)
[2019-07-03] MEDS: Pantoprazole TAB * 40 MG TAB PO SCH (08:58)
[2019-07-03 09:03] LABS: ABS Basophils 0.1 10^3/ul (0-0.2); ABS Eosinophils 0.2 10^3/ul (0-0.6); ABS Lymphocytes 1.1 10^3/ul (1.0-4.8); ABS Monocytes 0.5 10^3/ul (0-0.8); ABS Neutrophils 4.6 10^3/ul (1.5-7.7); Hematocrit 25 % (35-47); Hemoglobin 8.7 g/dL (12.0-16.0); Lymphocyte % 16.4 %; Mean Corpuscular HGB Conc 34 g/dL (31-36); Mean Corpuscular Hemoglobin 31 pg (27-31); Mean Corpuscular Volume 89 fL (80-97); Mean Platelet Volume 8.2 fL (7.4-10.4); Nucleated Red Blood Cells % 0.1; Platelet Count 208 10^3/uL (150-450); Red Blood Count 2.85 10^6 /uL (3.70-4.87); Red Cell Distribution Width 16 % (10-15); White Blood Count 6.5 10^3/uL (3.5-10.8)
[2019-07-03 09:17] LABS: BUN/Creatinine Ratio 17.5 (8-20); Calcium 9.8 mg/dL (8.6-10.3); EGFR African American 13.7 (>60); EGFR Non-African American 11.3 (>60); Potassium 4.3 mmol/L (3.5-5.0)
[2019-07-03 09:53] VITALS: BP 161/49
--- NOTE | 2019-07-03 13:42 | DS ---
CC: Dr. Bower; Dr. Marquez; Dr. Guadarrama * DISCHARGE SUMMARY: DATE OF ADMISSION: 06/26/19 DATE OF DISCHARGE: To [facility], 07/03/19 Please also regard this discharge summary as history and physical of the patient 's admission to [facility] on 07/03/19. PRIMARY CARE PROVIDER: Dr. Brina Guadarrama. DISPOSITION TO DISCHARGE: To [facility]. CONDITION ON DISCHARGE: Stable. DISCHARGE DIAGNOSES: 1. Chest pain due to non-ST elevation myocardial infarction, treated conservatively. 2. Left axillary abscess with cultures growing Peptostreptococcus anaerobius. 3. Severe lumbar spinal stenosis noted on MRI at the level of L4 and L5 as well as L2 signal alteration of a new focus that may be atypical hemangioma, but it is recommended to follow up MRI in 6 months to document stability. SECONDARY DIAGNOSES: 1. History of anxiety and depression. 2. History of dilated cardiomyopathy per an echocardiogram on 06/26/19. It showed EF of 30% to 35% with foku-lj-fkqwmirr mitral regurgitation. The echo showed no changes comparing with the echo from February 2019. 3. History of 5 cm right renal mass, likely renal cell carcinoma, for which the patient refused to have further evaluation. 4. History of chronic kidney disease stage IV. The patient had refused dialysis if it ever needed to be implemented. 5. Diabetes type 2. 6. Gastroesophageal reflux disease. 7. History of anemia of chronic disease. 8. History of bilateral renal cysts with "proteinaceous material" that are chronic. 9. History of methicillin-resistant Staphylococcus aureus positive urine cultures in the past. MEDICATIONS AT DISCHARGE: Include: 1. Acetaminophen on a p.r.n. basis. 2. Calcitriol 0.25 mcg p.o. as previously prescribed. 3. Calcium carbonate 500 mg every 4 hours p.r.n. 4. Vitamin D3 1000 units p.o. every other day. 5. Colace 100 mg daily. 6. Cardura 2 mg at bedtime. 7. Glimepiride 1 mg daily. 8. Hydralazine 50 mg 3 times a day. 9. DuoNeb every 4 hours p.r.n. 10. Lidocaine 4% applied to her affected areas daily. 11. Tradjenta 5 mg daily. 12. Imodium 2 mg daily p.r.n. 13. Omeprazole 20 mg daily. 14. Zofran 4 mg every 6 hours p.r.n. 15. MiraLAX 17 g daily p.r.n. 16. Zantac 150 mg q.p.m. daily. 17. Ultram 75 mg at bedtime. 18. Norvasc 10 mg daily. 19. Aspirin 81 mg daily. 20. Cefuroxime 500 mg b.i.d. 21. Plavix 75 mcg daily. 22. Furosemide 40 mg b.i.d. 23. Imdur 60 mg daily. 24. Metoprolol succinate 150 mg daily. 25. Nitroglycerin 0.4 mg on a p.r.n. basis. LABORATORY DATA AND STUDIES PERFORMED DURING THE HOSPITAL STAY: On 07/03/19, white blood cell count of 6.5, hemoglobin of 7.7, hematocrit of 25, and platelets of 208. Sodium 137, potassium of 4.3, chloride of 104, carbon dioxide 23, BUN 66, creatinine 3.77. The patient's troponin peaked at 6.05 on 06/26/19. The patient's blood cultures were negative. Abdomen and pelvis CT obtained on 06/30/19. Impression: "Trace bilateral pleural effusions. Possible diskitis and osteomyelitis at the L4-L5 level. Recommend clinical correlation and consider MRI imaging with a contrast for further evaluation. Right renal mass similar to prior ultrasound study suspicious for renal cell carcinoma. Masses within the left kidney that is likely representing hemorrhagic cyst given the prior ultrasound findings. Moderate to large amount of retained stool in the rectosigmoid colon." MRI of the lumbar spine obtained on 07/01/19. Impression: "There is progressive L4 to L5 intervertebral disk height loss and anterior L5 vertebral body height loss from 2012. In the absence of surrounding bone marrow edema and paraspinal segment, these changes are favored to be degenerative. If the patient's symptoms persist, short term followup imaging is recommended. A new focus of L2 signal alteration may be marketing development representative of an atypical hemangioma; however, with the patient's history of malignancy, followup MRI imaging is recommended to fully document stability in 6 months. Progressive multilevel spondylosis resulting in severe L4-L5 spinal canal stenosis and jyatffbh-vl-alyfnd multilevel neural foraminal stenosis as above. Modic type 1 degenerative endplate changes at L2-L3 and L3-L4 are potential source of focal back pain. Progressive fatty atrophy of the left psoas muscle. " Transthoracic echocardiogram obtained on 06/26/19 was quoted above. Abdomen and bladder ultrasound obtained on 07/01/19. Impression: "Mass in the upper pole of right kidney is unchanged from previous exam in February with bilateral renal cysts." CONSULTATION DURING THE HOSPITAL STAY: Included Dr. Bower from Cardiology. HOSPITALIZATION COURSE: Paluette Waterman is an 89-year-old female with a history of diabetic cardiomyopathy with EF of 35%, chronic systolic CHF, right renal mass likely renal cell carcinoma for which she refused to have further investigation, and chronic kidney disease stage IV in this patient who refused to go on dialysis if needed, who presented to the hospital complaining of chest pain. The patient was noted to have left axillary abscess that was I and D'd in the emergency department. Her chest pain resolved and she was planned to go home. Unfortunately, her second troponin turned out to be rising and finally her troponins peaked on 06/26/19 at 6.05. The patient continued to be asymptomatic from a cardiac standpoint throughout her hospital stay. She has history of anemia of chronic disease due to her history of chronic kidney disease and due to multiple venipunctures and lab draws, her hemoglobin dropped to 7.0. At this point, the patient felt slightly lightheaded and the decision was made for the patient to be transfused 1 unit of packed red blood cells the day prior to discharge with good response and hemoglobin of 8.7 by the time of discharge. The patient also received a dose of Epogen. Dr. Bower assisted our service in regards of the patient's non-ST elevation management. The patient was treated medically with heparin drip and titration of her antianginal medications and beta-gabrielle. By the time of discharge, she was hemodynamically stable and had no further angina. In regards to the patient's left axillary abscess, that was I and D'd in the ED and packed daily by our nursing staff. By the time of discharge, the patient still has a small area of orifice of approximately 1 cm with a rather deep cavity underneath and palpable what appears to be likely old and chronic hidradenitis suppurativa in the surrounding area. There is no evidence of cellulitis. It is recommended for the patient's wound to be packed on an every other day basis with a packing tape and covered with gauze. The patient is scheduled to see Dr. Marquez, surgeon on 07/03/19 at 2 p.m. for a followup. If any further issues arise, the patient can go to wound care center in the interim. The patient had a CT of the abdomen and pelvis on 06/30/19 due to constipation. There incidentally it was found the possibility of lumbar mass. At this point, MRI of the lumbar spine was obtained on 07/01/19, which showed severe spinal canal stenosis of L4-L5 as well as possibility of small lesion versus hemangioma at L2 for which it was recommended to have a followup MRI in 6 months for stability. The patient was informed about the findings. Those are chronic and the patient was asymptomatic from the standpoint, although she does have history of chronic bilateral leg weakness and problem with walking, which could be justified by her spinal stenosis. Unfortunately, she is not a surgical candidate. The patient is going to be discharged back to [facility]. For followup, the patient is recommended to follow up with her informatics pharmacist, Dr. Bower on 07/03/19 at 11 a.m., Dr. Brina Guadarrama in 4 to 7 days after discharge and Dr. Debbie Marquez on 07/13/19 at 2 p.m. for surgical followup. In regards to the patient's wound care, it is recommended to pack the wound every other day covered with a gauze. DISPOSITION AT DISCHARGE: Discharged to [facility]. CONDITION AT DISCHARGE: Stable. PHYSICAL EXAM AT THE TIME OF DISCHARGE: Blood pressure of 139/42, heart rate of 65 and regular, respiratory rate is 16, oxygen saturation 96% on room air, temperature 97.9. General: The patient is a pleasant 89-year-old female who is in no acute distress. Alert, awake, oriented x3. HEENT: Head is atraumatic , normocephalic. Eyes: Pupils are equal, reactive to light and accommodation. Oropharynx is clear. Mucosa moist. Neck: Supple. No JVD. No bruits bilaterally. Cardiovascular: Regular rate and rhythm with 2/6 systolic ejection murmur noted on auscultation of the apex. Respiratory: Clear to auscultation bilaterally. Abdomen: Soft, nontender. Bowel sounds are present in all 4 quadrants. Extremities: There is chronic bilateral leg edema, left more than right. There is no clubbing or cyanosis. Pulses are +2 bilaterally. On neuro evaluation, the patient is slightly hard of hearing. Cranial nerves II through XII grossly intact. Motor strength is 5/5 bilaterally. On evaluation of the skin, the patient has left axillary abscess with chronic hidradenitis suppurativa like changes, status post I and D'd with a 1 cm of orifice. There is no evidence of further purulent drainage. The wound is packed. There is some chronic scarring adjacent to the area with some palpable fluctuance subcutaneously likely related to chronic changes and not acute abscess. Please note that this is a short summary of the patient's prolonged hospitalization. Please refer to further medical records for details. TIME SPENT: Approximately 50 minutes was spent on the patient's discharge. [id number]/[facility] #: [id number] FRACIS[place]
== END 2019-07-03 13:16 | DRG 281 ==
LOC: ED 05:30 → MEDTELE 11:57 → OBSVTOIN 18:01
PROVIDERS: ADMIT Internal Medicine; ATTEND Internal Medicine
PROC: 0X940ZZ Drainage of Right Axilla, Open Approach (ICD-10-PCS; 2019-06-26)
PROC: 30233N1 Transfusion of Nonautologous Red Blood Cells into Peripheral Vein, Percutaneous Approach (ICD-10-PCS; principal; 2019-07-02)
DX: I21.4 Non-ST elevation (NSTEMI) myocardial infarction (principal); L02.412 Cutaneous abscess of left axilla; I42.0 Dilated cardiomyopathy; C64.1 Malignant neoplasm of right kidney, except renal pelvis; N18.4 Chronic kidney disease, stage 4 (severe); J90 Pleural effusion, not elsewhere classified; I13.0 Hypertensive heart and chronic kidney disease with heart failure and stage 1 through stage 4 chronic kidney disease, or unspecified chronic kidney disease; B96.5 Pseudomonas (aeruginosa) (mallei) (pseudomallei) as the cause of diseases classified elsewhere; M48.061 Spinal stenosis, lumbar region without neurogenic claudication; D32.1 Benign neoplasm of spinal meninges; F41.9 Anxiety disorder, unspecified; F32.9 Major depressive disorder, single episode, unspecified; I34.0 Nonrheumatic mitral (valve) insufficiency; E11.22 Type 2 diabetes mellitus with diabetic chronic kidney disease; K21.9 Gastro-esophageal reflux disease without esophagitis; D63.1 Anemia in chronic kidney disease; M47.9 Spondylosis, unspecified; K59.00 Constipation, unspecified; I27.20 Pulmonary hypertension, unspecified; M79.7 Fibromyalgia; R60.0 Localized edema; E55.9 Vitamin D deficiency, unspecified; E53.8 Deficiency of other specified B group vitamins; Z66 Do not resuscitate; I50.9 Heart failure, unspecified; E78.00 Pure hypercholesterolemia, unspecified; M19.90 Unspecified osteoarthritis, unspecified site; Z98.42 Cataract extraction status, left eye; Z98.41 Cataract extraction status, right eye; Z82.49 Family history of ischemic heart disease and other diseases of the circulatory system; Z86.14 Personal history of Methicillin resistant Staphylococcus aureus infection; Z79.84 Long term (current) use of oral hypoglycemic drugs; Z79.82 Long term (current) use of aspirin; Z79.02 Long term (current) use of antithrombotics/antiplatelets; Z88.7 Allergy status to serum and vaccine; Z86.73 Personal history of transient ischemic attack (TIA), and cerebral infarction without residual deficits; Z85.3 Personal history of malignant neoplasm of breast; Z88.0 Allergy status to penicillin; Z88.1 Allergy status to other antibiotic agents; Z88.8 Allergy status to other drugs, medicaments and biological substances; Z80.9 Family history of malignant neoplasm, unspecified; Z82.3 Family history of stroke
CPT/HCPCS: 36415; 71045; 72148; 74176; 76770; 80048; 80053; 82553; 82565; 82607; 82728; 82746; 83540; 83550; 83880; 84484; 84520; 85025; 85027; 85610; 85652; 85730; 86850; 86900; 86901; 86922; 87040; 87070; 87205; 87640; 87641; 93005; 93306; 99285; A9270-GY; C8929; G0378; G8978-GP-CK; G8979-GP-CI; G8987-GO-CK; G8988-GO-CI; J0690; J1644; J1940; P9040; Q5106

== ENCOUNTER 2019-10-20 15:53 | Emergency (ER) | payer MEDICARE ==
--- NOTE | 2019-10-20 16:37 | ED ---
Complex/Multi-Sys Presentation - HPI Summary HPI Summary: 89-year-old female with a significant past medical history of chronic kidney disease, CHF, Diabetes Type 2, dilated cardiomyopathy with an EF of 35%, renal cell carcinoma, NSTEMI in 06/26/19 presents to the emergency department today complaining of increased fatigue over the last few weeks. She claims no physical pain, shortness of breath, fever or other symptoms but she just feels increasing fatigue. This is a [facility] She is a DNR. Dr. [facility]arr[facility] due to her troponin being measured yesterday 0.38. Her EKG yesterday showed no changed when compared to prior. Dr. Guadarrama requested her troponin be checked and if there is no elevation to [facility]. Patient denies fever, chest pain, abdominal pain, shortness of breath, pain with urination. - History Of Current Complaint Chief Complaint: EDChestPainROMI Hx Obtained From: Patient Onset/Duration: Lasting Weeks Timing: Constant Severity Currently: Mild Severity Initially: Mild Associated Signs And Symptoms: Positive: Weakness - Allergies/Home Medications Allergies/Adverse Reactions: Allergies Allergy/AdvReac Type Severity Reaction Status Date / Time exenatide [From [place]] Allergy Itching Verified 06/26/19 05:47 Influenza Virus Vaccines Allergy Itching Verified 06/26/19 05:47 nadolol Allergy Itching Verified 06/26/19 05:47 naproxen Allergy Swelling Verified 06/26/19 05:47 Penicillins Allergy Hives Verified 06/26/19 05:47 Evkjzhl-Dgf-Yxn Reductase Allergy Muscle Ache Verified 06/26/19 05:47 Inhibitor Home Medications: Home Medications Acetaminophen TAB* [Tylenol TAB*] 650 mg PO Q8HR PRN 10/20/19 [History Confirmed 10/20/19] Bisacodyl SUPP* [Dulcolax Supp*] 10 mg HI DAILY PRN 10/20/19 [History Confirmed 10/20/19] Calcitriol CAP* [Rocaltrol CAP*] 0.25 mcg PO DAILY 10/20/19 [History Confirmed 10/20/19] Cyanocobalamin TAB* [Vitamin B12 TAB*] 1,000 mcg PO DAILY 10/20/19 [History Confirmed 10/20/19] Docusate CAP* [Colace Cap*] 100 mg PO DAILY 10/20/19 [History Confirmed 10/20/19 ] Famotidine TAB* [Pepcid 20 MG TAB*] 10 mg PO BEDTIME 10/20/19 [History Confirmed 10/20/19] Glimepiride (NF) 1 mg PO DAILY 10/20/19 [History Confirmed 10/20/19] Ipratropium/Albuterol Sulfate [Iprat-Albut 0.5-3(2.5) mg/3 ml] 3 ml INH Q4HR PRN 10/20/19 [History Confirmed 10/20/19] Lidocaine [Aspercreme Lidocaine Max] 4 % TOPICAL DAILY 10/20/19 [History Confirmed 10/20/19] Meclizine TAB* [Antivert 12.5 TAB*] 25 mg PO Q8HR PRN 10/20/19 [History Confirmed 10/20/19] Metoprolol Succinate XL TAB* [Toprol XL TAB*] 100 mg PO BID 10/20/19 [History Confirmed 10/20/19] Morphine ORAL.CONC BULK BOT* [Roxanol ORAL.CONC Bottle*] 0.25 ml PO DAILY PRN [History Confirmed 10/20/19] Nitroglycerin 0.2 MG/HR PATCH* [Nitroglycerin 5 MG PATCH*] 1 patch TRANSDERM DAILY 10/20/19 [History Confirmed 10/20/19] Ondansetron ODT TAB* [Zofran 4 MG Odt TAB*] 4 mg PO Q6H PRN 10/20/19 [History Confirmed 10/20/19] Polyethylene Glycol 3350* [Miralax*] 17 gm PO DAILY PRN 10/20/19 [History Confirmed 10/20/19] Ranolazine (NF) [Ranexa (NF)] 250 mg PO BID 10/20/19 [History Confirmed 10/20/19 ] amLODIPine TAB* [Norvasc 5 mg TAB*] 10 mg PO DAILY 10/20/19 [History Confirmed 10/20/19] hydrALAZINE TAB* [Apresoline TAB*] 50 mg PO TID 10/20/19 [History Confirmed ] traMADol TAB* [Ultram*] 50 mg PO BID PRN 10/20/19 [History Confirmed 10/20/19] PMH/Surg Hx/FS Hx/Imm Hx Endocrine/Hematology History: Reports: Hx Diabetes, Hx Anemia, Other Endocrine/ Hematological Disorders - hyperparathyroidism Cardiovascular History: Reports: Hx Congestive Heart Failure, Hx Hypercholesterolemia, Hx Hypertension Denies: Hx Pacemaker/ICD, Hx Peripheral Vascular Disease Respiratory History: Reports: Hx Pulmonary Edema Denies: Hx Asthma, Hx Chronic Obstructive Pulmonary Disease (COPD) History: Reports: Hx Chronic Renal Failure, Hx Renal Disease - Stage IV renal disease, Other Problems/Disorders - Stage IV renal disease Musculoskeletal History: Reports: Hx Arthritis, Hx Back Problems Sensory History: Reports: Hx Contacts or Glasses Denies: Hx Hearing Aid Opthamlomology History: Reports: Hx Contacts or Glasses Neurological History: Reports: Hx Transient Ischemic Attacks (TIA) Psychiatric History: Reports: Hx Anxiety, Hx Depression Denies: Hx Panic Disorder - Cancer History Cancer Type, 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 LUMPECTOMY LEFT BREAST. Cataract removal - Immunization History Immunizations Up to Date: Yes Infectious Disease History: No Infectious Disease History: Denies: Traveled Outside the [place] in Last 30 Days - Family History Known Family History: Positive: Hypertension, Other - Cancer, CVA Family History: mother CA; father accident - Social History Alcohol Use: None Hx Substance Use: No Substance Use Type: Reports: None Smoking Status (MU): Never Smoked Tobacco Have You Smoked in the Last Year: No Review of Systems Constitutional: Negative Eyes: Negative ENT: Negative Cardiovascular: Negative Respiratory: Negative Gastrointestinal: Negative Genitourinary: Negative Musculoskeletal: Negative Skin: Negative Positive: Weakness. Negative: Headache, Paresthesia Psychological: Normal All Other Systems Reviewed And Are Negative: Yes Physical Exam Triage Information Reviewed: Yes Vital Signs On Initial Exam: Initial Vitals Temp Pulse Resp BP Pulse Ox 98.5 F 64 20 169/76 98 10/20/19 16:08 10/20/19 16:08 10/20/19 16:08 10/20/19 16:08 10/20/19 16:08 Vital Signs Reviewed: Yes Appearance: Positive: Well-Appearing, No Pain Distress, Well-Nourished, Obese Skin: Positive: Warm, Skin Color Reflects Adequate Perfusion Head/Face: Positive: Normal Head/Face Inspection Eyes: Positive: EOMI, VANDANA ENT: Positive: Hearing grossly normal Respiratory/Lung Sounds: Positive: Clear to Auscultation, Breath Sounds Present Cardiovascular: Positive: RRR, S1, S2 Abdomen Description: Positive: Nontender, Soft. Negative: Distended, Guarding Bowel Sounds: Positive: Present Neurological: Positive: Sensory/Motor Intact, Alert, Oriented to Person Place, Time, Unable to Assess Gait, Speech Normal Psychiatric: Positive: Normal AVPU Assessment: Alert Procedures - Sedation Patient Received Moderate/Deep Sedation with Procedure: No Diagnostics - Vital Signs Vital Signs Temp Pulse Resp BP Pulse Ox 10/20/19 16:08 98.5 F 64 20 169/76 98 - Laboratory Result Diagrams: 10/20/19 16:39 10/20/19 16:39 Lab Statement: Any lab studies that have been ordered have been reviewed, and results considered in the medical decision making process. Complex Multi-Symp Course/Dx Course Of Treatment: 89-year-old female presents to emergency department for evaluation of weakness. She was [facility] today for evaluation because yesterday when she had a troponin measured it was 0.38, which is more elevated from her baseline. She had an EKG done yesterday which showed no changes from prior EKGs. Dr. Guadarrama her physician wanted her to come to the emergency department to have a troponin measured and if it was the same as yesterday to send her home. Upon arrival the patient was seen and evaluated. An EKG was done which showed normal sinus rhythm at a rate of 64 bpm. There is normal axis with no ST elevation. There are T-wave inversions in leads 2,3, V3 , V4, V5, V6 which are new changes when compared to the EKG done yesterday. Troponin resulted today as 0.36. Her troponin has decreased and Dr. Guadarrama was consulted for disposition considering EKG changes. - Diagnoses Differential Diagnoses/HQI/PQRI: Cardiac Ischemia, CVA, Sepsis, Other - STEMI, NSTEMI Provider Diagnoses: Weakness - Physician Notifications Discussed Care Of Patient With: Brina Guadarrama - Dr. Guadarrama requested troponin to be checked, and if it has decreased to send her home to [facility]. She was consulted again about lower troponin in the presence of EKG changes for disposition. Discharge ED - Sign-Out/Discharge Documenting (check all that apply): Sign-Out Patient Signing out patient TO: Kerry Chino Receiving patient FROM: Bassam Mayers - Discharge Plan Referrals: Brina Guadarrama DO [Primary Care Provider] -
[2019-10-20 16:49] LABS: ABS Basophils 0.1 10^3/ul (0-0.2); ABS Eosinophils 0.3 10^3/ul (0-0.6); ABS Lymphocytes 1.1 10^3/ul (1.0-4.8); ABS Monocytes 0.5 10^3/ul (0-0.8); ABS Neutrophils 4.7 10^3/ul (1.5-7.7); Eosinophil % 4.1 %; Hematocrit 28 % (35-47); Hemoglobin 9.6 g/dL (12.0-16.0); Lymphocyte % 16.1 %; Mean Corpuscular HGB Conc 35 g/dL (31-36); Mean Corpuscular Hemoglobin 32 pg (27-31); Mean Corpuscular Volume 92 fL (80-97); Mean Platelet Volume 7.6 fL (7.4-10.4); Platelet Count 251 10^3/uL (150-450); Red Cell Distribution Width 14 % (10-15); White Blood Count 6.7 10^3/uL (3.5-10.8)
[2019-10-20 17:00] LABS: Activated Partial Thrombo Time 27.5 seconds (26.0-38.0); INR 1.03 (0.82-1.09)
[2019-10-20 17:06] LABS: Albumin 3.6 g/dL (3.2-5.2); Anion Gap 9 mmol/L (2-11); CO2 Carbon Dioxide 27 mmol/L (22-32); Calcium 12.3 mg/dL (8.6-10.3); Chloride 98 mmol/L (101-111); Magnesium 2.1 mg/dL (1.9-2.7); Potassium 4.3 mmol/L (3.5-5.0); Sodium 134 mmol/L (135-145)
[2019-10-20 17:12] LABS: ALT 12 U/L (7-52); AST 13 U/L (13-39); Albumin/Globulin Ratio 1.1 (1-3); Alkaline Phosphatase 58 U/L (34-104); BUN/Creatinine Ratio 16.2 (8-20); Blood Urea Nitrogen 60 mg/dL (6-24); EGFR Non-African American 11.6 (>60); Globulin 3.4 g/dL (2-4); Glucose 206 mg/dL (70-100)
[2019-10-20 17:17] LABS: Troponin I 0.36 ng/mL (<0.03)
--- OUTSIDE RECORDS SUMMARY | 2019-10-20 17:40 | XMS REPORT | Continuity of Care Document ---
:1930 External Reference #:[id number] Author Name Guadalupe Brown MD (transmitted by agent of provider La Yanez) Address [address] , [address] [place] [address] Care Team Providers Name Role Phone Brina Guadarrama DO - Primary Care Care Team Information Data Center Consultant [phone] Problems Active Problems Provider Date Anemia of chronic renal failure Guadalupe Brown MD Onset: 09/18/2019 Chronic kidney disease stage 5 Guadalupe Brown MD Onset: 09/18/2019 Social History Type Date Description Comments Sex Unknown Tobacco Use Start: Unknown Never Smoked Cigarettes Smoking Status Reviewed: 09/18/19 Never Smoked Cigarettes ETOH Use Denies alcohol use Tobacco Use Start: Unknown Patient has never smoked Recreational Drug Use Never Used Drugs Exercise Type/Frequency Does not exercise Allergies, Adverse Reactions, Alerts Active Allergies Reaction Severity Comments Date Penicillin 03/18/2015 Statins 07/30/2019 Medications Active Medications SIG Qnty Indications Ordering Date Provider Ranolazine ER 1/2 by mouth (250 I25.119 Clyde Bower, 07/30/2019 500mg mg) twice a day DO FACC Tablets ER 12HR Doxazosin Mesylate take one by mouth Clyde Bower, 07/29/2019 2mg at bedtime DO FACC Tablets Nitro-Dur Clyde Bower, 07/28/2019 0.2mg/HR DO FACC Patches 24HR Metoprolol Succinate take 1 by mouth Clyde Bower, 07/28/2019 ER twice daily DO FACC 100mg Tablets ER 24HR Aspirin Ec Low Dose Clyde Bower, 07/28/2019 81mg DO FACC Tablets Nitroglycerin 1 sl q5mins x3 as 25tabs Clyde Bower, 07/28/2019 0.4mg needed for chest DO FACC Tablets Sub pain Lasix take one twice 30tabs Clyde Bower, 07/28/2019 40mg Tablets daily DO FACC Omeprazole 1 by mouth every 30caps Clyde Bower, 07/28/2019 20mg Capsules day DO FACC DR Isosorbide Mononitrate 1 by mouth every 90tabs Clyed Bower, 2018 ER day DO FACC 60mg Tablets ER 24HR Zofran prn Clyde Bower, 07/27/2019 4mg Tablets DO FACC Plavix 1 by mouth every 90tabs Clyde Bower, 07/27/2019 75mg Tablets day DO FACC Glimepiride one po daily Aimee 02/06/2019 1mg Tablets MD Radha Hydralazine HCL 50mg po tid Brina Thierry, 01/29/2019 50mg D.O. Tablets Tramadol HCL 1 by mouth every 40tabs Jagjit Anaya M.D. 04/05/2015 50mg Tablets 4 hour as needed Amlodipine Besylate 1 by mouth every Unknown 10mg day Tablets Ranitidine HCL take one tablet Unknown 150mg by mouth twice a Tablets day Vitamin D by mouth everyday Unknown 1000Unit Tablets Immunizations Description No Information Available Vital Signs Date Vital Result Comment 09/18/2019 11:05am Height 64 inches 5'4" Weight 202.00 lb Heart Rate 52 /min BP Systolic Sitting 153 mmHg Right Arm Reg Cuff BP Diastolic Sitting 70 mmHg Right Arm Reg Cuff O2 % BldC Oximetry 99 % Room Air BMI (Body Mass Index) 34.7 kg/m2 08/12/2019 4:34pm Height 64 inches 5'4" Weight 202.00 lb 2 hour ago at the half-way Heart Rate 64 /min BP Systolic Sitting 138 mmHg Rue BP Diastolic Sitting 62 mmHg Rue BMI (Body Mass Index) 34.7 kg/m2 Ejection Fraction 30-35% Echo 06/26/19 Results Description No Information Available Procedures Date Code Description Status 08/12/2019 58857 EKG Tracing & Interpretation Completed 07/30/2019 77419 EKG Tracing & Interpretation Completed 06/29/2019 04217 EKG, Interpretation Only Completed 06/26/2019 03714 ECHO Transthorasic Realtime 2D W Doppler & Color Flow Hosp Completed Medical Devices Description No Information Available Encounters Type Date Location Provider Dx Diagnosis Office Visit 09/02/2019 [facility] Brina Guadarrama, I25.119 [facility] heart 8:30a D.O. 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 disease of marshall cor art w unsp ang pctrs I50.22 Chronic systolic (congestive) heart failure N18.4 Chronic kidney disease, stage 4 (severe) D64.9 Anemia, unspecified K21.9 Gastro-esophageal reflux disease without esophagitis E11.42 Type 2 diabetes mellitus with diabetic polyneuropathy Z66 Do not resuscitate Office Visit 07/30/2019 11:20a [facility] Clyde Hnason I25.119 [facility] heart [facility] Bower, DO disease of FACC marshall cor art w unsp ang pctrs I25.2 Old myocardial infarction I50.22 Chronic systolic (congestive) heart failure N18.9 Chronic kidney disease, unspecified N18.4 Chronic kidney disease, stage 4 (severe) D64.9 Anemia, unspecified Office Visit 07/21/2019 9:30a [facility] Suly Abbott, I49.8 Other specified PA cardiac arrhythmias 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 ([facility]) Hospitalists myocardial infarction B95.4 Oth streptococcus as the cause of diseases classd elswhr L02.213 Cutaneous abscess of chest wall M48.07 Spinal stenosis, lumbosacral region [facility] St elevation Assjanespc Jt ([facility]) Hospitalists myocardial infarction M48.07 Spinal stenosis, lumbosacral region L02.213 Cutaneous abscess of chest wall N18.9 Chronic kidney disease, unspecified Office Visit 07/01/2019 12:06p [facility] Natalia Reyes, I21.4 Non- St elevation Assjanespc Jt ([facility]) Hospitalists myocardial infarction N28.1 Cyst of kidney, acquired L02.213 Cutaneous abscess of chest wall R93.7 Abnormal findings on diagnostic imaging of prt ms sys Office [facility] 06/30[facility]2019 [facility].4 Non- St elevation Assocpc Jt ([facility]) Hospitalists myocardial infarction L02.213 Cutaneous abscess of chest wall K59.00 Constipation, unspecified I50.9 Heart failure, unspecified N18.9 Chronic kidney disease, unspecified Office Visit 06/29/2019 12:05p [facility] Natlaia Reyes, I21.4 Non- St elevation Assocpc Jt ([facility]) Hospitalists myocardial infarction L02.213 Cutaneous abscess of chest wall I50.9 Heart failure, unspecified N18.9 Chronic kidney disease, unspecified Office Visit 06/29/2019 4:25p [facility] Clyde S. I21.4 Non-St elevation Of [facility] DO Sathish (Nstemi) FAC myocardial infarction I50.22 Chronic systolic (congestive) heart failure D64.9 Anemia, unspecified N28.89 Other specified disorders of kidney and ureter N18.9 Chronic kidney disease, unspecified E11.9 Type 2 diabetes mellitus without complications Office Visit 06/28/2019 4:23p [facility] Clyde S. I21.4 Non-St elevation Of [facility] Sathish DO (Nstemi) FACC myocardial infarction D64.9 Anemia, unspecified I50.22 Chronic systolic (congestive) heart failure N28.89 Other specified disorders of kidney and ureter N18.9 Chronic kidney disease, unspecified E11.9 Type 2 diabetes mellitus without complications Office Visit 06/28/2019 [facility] I21.4 Non-St elevation 11:14a ellie Johnson MD ([facility]) Hospitalists myocardial infarction I50.9 Heart failure, unspecified E11.22 Type 2 diabetes mellitus w diabetic chronic kidney disease N18.4 Chronic kidney disease, stage 4 (severe) D64.9 Anemia, unspecified Office Visit 06/27/2019 4:18p [facility] Clyde S. I21.4 Non-St elevation Of [facility] DO Sathish (Nstemi) FAC myocardial infarction I50.22 Chronic systolic (congestive) heart failure D64.9 Anemia, unspecified N18.9 Chronic kidney disease, unspecified E11.9 Type 2 diabetes mellitus without complications N28.89 Other specified disorders of kidney and ureter Office Visit 06/27/2019 [facility] I21.4 Non-St elevation 11:14a ellie Johnson MD ([facility]stemi) Hospitalists myocardial infarction I50.9 Heart failure, unspecified E11.22 Type 2 diabetes mellitus w diabetic chronic kidney disease N18.4 Chronic kidney disease, stage 4 (severe) Office Visit 06/26/2019 [facility] Clyde S. R94.31 Abnormal 4:00p Cardiology Sathish electrocardiogram Personal Lines Account Manager FACC [ECG] [EKG] I21.4 Non-St elevation (Nstemi) myocardial infarction Office Visit 06/26/2019 [facility] Natalia Reyes, R07.9 Chest pain, 12:04p ellie Johnson M.D. unspecified Hospitalists R79.89 Other specified abnormal findings of blood chemistry L02.213 Cutaneous abscess of chest wall E11.22 Type 2 diabetes mellitus w diabetic chronic kidney disease N18.4 Chronic kidney disease, stage 4 (severe) Office Visit 06/04/2019 8:00a [facility] Brina Guadarrama I50.22 Chronic systolic D.O. (congestive) heart failure E11.22 Type 2 diabetes mellitus w diabetic chronic kidney disease N18.4 Chronic kidney disease, stage 4 (severe) K21.9 Gastro-esophageal reflux disease without esophagitis Z66 Do not resuscitate Office [facility] M79.662 Pain in left INFORMATION TECHNOLOGY DATA ANALYST lower leg Office Visit 05/15/2019 10[facility] M79.662 Pain in left INFORMATION TECHNOLOGY DATA ANALYST lower leg Office Visit 05/01/2019 8:45a [facility] Raegan Bright, I50.22 Chronic systolic DO (congestive) heart failure E11.22 Type 2 diabetes mellitus w diabetic chronic kidney disease Z66 Do not resuscitate Office Visit 03/29/2019 10:15a [facility] Raegan Bright, I50.22 Chronic systolic DO (congestive) heart failure E11.22 Type 2 diabetes mellitus w diabetic chronic kidney disease N18.4 Chronic kidney disease, stage 4 (severe) E11.42 Type 2 diabetes mellitus with diabetic polyneuropathy K21.9 Gastro-esophageal reflux disease without esophagitis Assessments Date Code Description Provider 09/18/2019 N18.5 Chronic kidney disease, stage 5 Guadalupe Brown MD 09/18/2019 D63.1 Anemia in chronic kidney disease Guadalupe Brown MD 09/02/2019 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 failure 09/02/2019 N18.4 Chronic kidney disease, stage 4 (severe) Brina Prettyr, D.O. 09/02/2019 E11.42 Type 2 diabetes mellitus with diabetic Brina Thierry, D.O. polyneuropathy 09/02/2019 Z66 Do not resuscitate Brina Thierry, D.O. 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 coronary artery with unspecified angina pectoris 08/03/2019 I50.22 Chronic systolic (congestive) heart Brina Thierry, D.O. failure 08/03/2019 N18.4 Chronic kidney disease, stage 4 (severe) Brina Thierry, D.O. 08/03/2019 D64.9 Anemia, unspecified Brina Thierry, D.O. 08/03/2019 K21.9 Gastro-esophageal reflux disease without Brina Thierry, D.O. esophagitis 08/03/2019 E11.42 Type 2 diabetes mellitus with diabetic Brina Thierry, D.O. polyneuropathy 08/03/2019 Z66 Do not resuscitate Brina Thierry, D.O. 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 disease with heart failure and stage 1 through stage 4 chronic kidney disease, or unspecified chronic kidney disease 07/06/2019 I50.22 Chronic systolic (congestive) heart Brina Guadarrama D.O. failure 07/06/2019 E11.22 Type 2 diabetes mellitus with diabetic Brina Guadarrama D.O. chronic kidney diseas 07/06/2019 N18.4 Chronic kidney disease, stage 4 (severe) Brina Guadarrama D.O. 07/06/2019 K21.9 Gastro-esophageal reflux disease without Brina Thierry D.O. esophagitis 07/06/2019 L02.213 Cutaneous abscess of chest wall Brina Guadarrama D.O. 07/03/2019 I21.4 Non-St elevation (Nstemi) myocardial Natalia Reyes M.D. infarction 07/03/2019 B95.4 Other streptococcus as the cause of Natalia Reyes M.D. diseases classified elsewhere 07/03/2019 L02.213 Cutaneous abscess of chest wall Natalia Reyes M.D. 07/03/2019 M48.07 Spinal stenosis, lumbosacral region Natalia Reyes M.D. 07/02/2019 I21.4 Non-St elevation (Nstemi) myocardial Natalia Reyes M.D. infarction 07/02/2019 M48.07 Spinal stenosis, lumbosacral region Natalia Reyes M.D. 07/02/2019 L02.213 Cutaneous abscess of chest wall Natalia Reyes M.D. 07/02/2019 N18.9 Chronic kidney disease, unspecified Natalia Reyes M.D. 07/01/2019 I21.4 Non-St elevation (Nstemi) myocardial Natalia Reyes M.D. infarction 07/01/2019 N28.1 Cyst of kidney, acquired Natalia Reyes M.D. 07/01/2019 L02.213 Cutaneous abscess of chest wall Natalia Reyes M.D. 07/01/2019 R93.7 Abnormal findings on diagnostic imaging Natalia Reyes M.D. of other parts of musculoskeletal system 06/30/2019 I21.4 Non-St elevation (Nstemi) myocardial Natalia Reyes M.D. infarction 06/30/2019 L02.213 Cutaneous abscess of chest wall Natalia Reyes M.D. 06/30/2019 K59.00 Constipation, unspecified Natalia Reyes M.D. 06/30/2019 I50.9 Heart failure, unspecified Natalia Reyes M.D. 06/30/2019 N18.9 Chronic kidney disease, unspecified Natalia Reyes M.D. 06/29/2019 R94.31 Abnormal electrocardiogram [ECG] [EKG] Clyde Bower, DO FAC 06/29/2019 I21.4 Non-St elevation (Nstemi) myocardial Clyde Bower, DO [facility] infarction 06/29/2019 I21.4 Non-St elevation (Nstemi) myocardial Natalia Reyes M.D. infarction 06/29/2019 I50.22 Chronic systolic (congestive) heart Clyde Bower, DO FACC failure 06/29/2019 L02.213 Cutaneous abscess of chest wall Natalia Reyes M.D. 06/29/2019 D64.9 Anemia, unspecified Clyde Bower, DO FACC 06/29/2019 I50.9 Heart failure, unspecified Natalia Reyes M.D. 06/29/2019 N28.89 Other specified disorders of kidney and Clyde Bower, DO FACC ureter 06/29/2019 N18.9 Chronic kidney disease, unspecified Natalia Reyes M.D. 06/29/2019 N18.9 Chronic kidney disease, unspecified Clyde Bower, DO FACC 06/29/2019 E11.9 Type 2 diabetes mellitus without Clyde Bower, DO FACC complications 06/28/2019 I21.4 Non-St elevation (Nstemi) myocardial Clyde Bower, DO FACC infarction 06/28/2019 I21.4 Non-St elevation (Nstemi) myocardial Roselia Guardado MD infarction 06/28/2019 D64.9 Anemia, unspecified Clyde Bower, DO FACC 06/28/2019 I50.9 Heart failure, unspecified Roselia Guardado MD 06/28/2019 I50.22 Chronic systolic (congestive) heart Clyde Bower, DO FACC failure 06/28/2019 E11.22 Type 2 diabetes mellitus with diabetic Roselia Guardado MD chronic kidney diseas 06/28/2019 N28.89 Other specified disorders of kidney and Clyde Bower, DO FACC ureter 06/28/2019 N18.4 Chronic kidney disease, stage 4 (severe) Roselia Guardado MD 06/28/2019 N18.9 Chronic kidney disease, unspecified Clyde Bower, DO FACC 06/28/2019 D64.9 Anemia, unspecified Roselia Guardado MD 06/28/2019 E11.9 Type 2 diabetes mellitus without Clyde Bower, DO FACC complications 06/27/2019 I21.4 Non-St elevation (Nstemi) myocardial Clyde Bower, DO FACC infarction 06/27/2019 I50.22 Chronic systolic (congestive) heart Clyde Bower, DO FACC failure 06/27/2019 I21.4 Non-St elevation (Nstemi) myocardial Roselia Guardado MD infarction 06/27/2019 D64.9 Anemia, unspecified Clyde Bower, DO FACC 06/27/2019 I50.9 Heart failure, unspecified Roselia Guardado MD 06/27/2019 N18.9 Chronic kidney disease, unspecified Clyde Bower, DO FACC 06/27/2019 E11.22 Type 2 diabetes mellitus with diabetic Roselia Guardado MD chronic kidney diseas 06/27/2019 E11.9 Type 2 diabetes mellitus without Clyde Bower, DO FACC complications 06/27/2019 N18.4 Chronic kidney disease, stage 4 (severe) Roselia Guardado MD 06/27/2019 N28.89 Other specified disorders of kidney and Clyde Bower, DO FACC ureter 06/26/2019 R94.31 Abnormal electrocardiogram [ECG] [EKG] Clyde Bower, DO FACC 06/26/2019 I21.4 Non-St elevation (Nstemi) myocardial Clyde Bower, DO FACC infarction 06/26/2019 R07.9 Chest pain, unspecified Natalia Reyes M.D. 06/26/2019 R79.89 Other specified abnormal findings of Natalia Reyes M.D. blood chemistry 06/26/2019 L02.213 Cutaneous abscess of chest wall Natalia Reyes M.D. 06/26/2019 E11.22 Type 2 diabetes mellitus with diabetic Natalia Reyes M.D. chronic kidney diseas 06/26/2019 N18.4 Chronic kidney disease, stage 4 (severe) Natalia Reyes M.D. 06/17/2019 I10 Essential (primary) hypertension MADELINE Acosta 06/04/2019 I50.22 Chronic systolic (congestive) heart Brina Guadarrama D.O. failure 06/04/2019 E11.22 Type 2 diabetes mellitus with diabetic Brina Guadarrama D.O. chronic kidney diseas 06/04/2019 N18.4 Chronic kidney disease, stage 4 (severe) Brina Guadarrama D.O. 06/04/2019 K21.9 Gastro-esophageal reflux disease without Brina Guadarrama D.O. esophagitis 06/04/2019 Z66 Do not resuscitate Brina Guadarrama D.O. 05/18/2019 M79.662 Pain in left lower leg Vidhi Touchton, INFORMATION TECHNOLOGY DATA ANALYST 05/15/2019 M79.662 Pain in left lower leg Vidhi Touchton, INFORMATION TECHNOLOGY DATA ANALYST 05/01/2019 I50.22 Chronic systolic (congestive) heart Raegan Senner, DO failure 05/01/2019 E11.22 Type 2 diabetes mellitus with diabetic Raegan Senner, DO chronic kidney diseas 05/01/2019 Z66 Do not resuscitate Raegan Senner, DO 03/29/2019 I50.22 Chronic systolic (congestive) heart Raegan Senner, DO failure 03/29/2019 E11.22 Type 2 diabetes mellitus with diabetic Raegan Senner, DO chronic kidney diseas 03/29/2019 N18.4 Chronic kidney disease, stage 4 (severe) Raegan Senner, DO 03/29/2019 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
--- NOTE | 2019-10-20 18:27 | ED ---
Course/Dx - Course Course Of Treatment: 89-year-old female presents to emergency department for evaluation of weakness. She was sent from [facility] today for evaluation because yesterday when she had a troponin measured it was 0.38, which is more elevated from her baseline. She had an EKG done yesterday which showed no changes from prior EKGs. Dr. Guadarrama her physician wanted her to come to the emergency department to have a troponin measured and if it was the same as yesterday to send her home. Upon arrival the patient was seen and evaluated. An EKG was done which showed normal sinus rhythm at a rate of 64 bpm. There is normal axis with no ST elevation. There are T-wave inversions in leads 2,3, V3 , V4, V5, V6 which are new changes when compared to the EKG done yesterday. Troponin resulted today as 0.36. Her troponin has decreased and Dr. Guadarrama was consulted for disposition considering EKG changes. dr guadarrama states patient can be discharged and does not need heparin. left vm with daughter - Diagnoses Provider Diagnoses: Weakness Discharge ED - Sign-Out/Discharge Documenting (check all that apply): Patient Departure, Receiving Sign-Out Receiving patient FROM: Bassam Mayers - Discharge Plan Condition: Stable Disposition: HOME Patient Education Materials: Weakness (ED) Referrals: Brina Guadarrama DO [Primary Care Provider] - Additional Instructions: follow up with primary within 5 days Return to ED if develop any new or worsening symptoms - Billing Disposition and Condition Condition: STABLE Disposition: Home
[2019-10-20 19:59] VITALS: BP 171/85
== END 2019-10-20 19:37 | disposition home or self-care (01) ==
LOC: ED 15:53
DX: R53.1 Weakness (principal); E11.22 Type 2 diabetes mellitus with diabetic chronic kidney disease; I13.0 Hypertensive heart and chronic kidney disease with heart failure and stage 1 through stage 4 chronic kidney disease, or unspecified chronic kidney disease; N18.4 Chronic kidney disease, stage 4 (severe); I50.9 Heart failure, unspecified; E21.3 Hyperparathyroidism, unspecified; E78.00 Pure hypercholesterolemia, unspecified; F41.9 Anxiety disorder, unspecified; F32.9 Major depressive disorder, single episode, unspecified; I25.2 Old myocardial infarction; Z85.3 Personal history of malignant neoplasm of breast; Z88.0 Allergy status to penicillin; Z88.7 Allergy status to serum and vaccine; Z88.8 Allergy status to other drugs, medicaments and biological substances; Z79.84 Long term (current) use of oral hypoglycemic drugs; Z79.899 Other long term (current) drug therapy
CPT/HCPCS: 36415; 80053; 83735; 83880; 84484; 85025; 85610; 85730; 93005; 99284